=== PATIENT | male | born 1940 | race Caucasian/White ===

== ENCOUNTER 2023-08-23 13:37 | Inpatient (IN) | payer MEDICARE, SELFPAY ==
[2023-08-23] VITALS (11 sets, daily range): BP systolic 121–153; BP diastolic 66–90; BMI 31.4
--- NOTE | 2023-08-23 09:36 | ED.GENMED ---
History of Present Illness
<Nisreen Zhong PA-C - Last Filed: 08/23/23 16:46>
General
Chief Complaint: Fainting/Passed Out
Source: patient and spouse
Exam Limitations: none
Time Seen by Provider: 08/23/23 09:06
Nursing documentation reviewed up to this point in time: agreed with
Travel History
Have you had any contact with someone who has COVID-19?: No
Do you have any symptoms of coronavirus? Fever > 100 degrees, chills, cough, shortness of breath, sore throat, loss of taste or smell, muscle aches, or headache?: No
History of Present Illness
History of Present Illness:
Patient is an 82-year-old male with history of IPF, CAD, CVA presenting to the emergency department via EMS for evaluation following syncopal episode this morning. Patient's states that he was sitting at the kitchen counter after eating
breakfast when he suddenly slumped over and briefly lost consciousness. He has had a few episodes of vomiting since. Patient endorses some dizziness immediately following syncopal episode which has mainly since resolved. Patient states that he
was feeling his normal self when he woke up this morning prior to syncopal episode. He does report a productive cough over the past few weeks with yellow sputum.
Prior to syncopal episode, patient denies any preceding chest pain, shortness of breath, back pain, or headache. Patient denies any recent fever, chills. No abdominal pain.
Patient's states that he did not hit his head. He did not sustain any other injuries during syncopal episode.
Patient does take a baby aspirin. No other blood thinners.
Past History
<Nisreen Zhong PA-C - Last Filed: 08/23/23 16:46>
Past History
ED Past Medical History: CAD, Cancer (Prostate CA with radiation), GERD, HTN, Hypercholesterolemia and Other (Pulmonary fibrosis)
ED Past Surgical History: Appendectomy (Questionable patient was unsure), Cardiac (CABG, Stent) and Other (Hernia repair)
Social History
Tobacco: Non-smoker
Alcohol: Occasional
Drug: None
Personal:
Living: with family
Employment: Retired
Family History
Family History: Negative Diabetes, Hypertension, Early CAD, Asthma or Cancer
Review of Systems
<Nisreen Zhong PA-C - Last Filed: 08/23/23 16:46>
Review of Systems
Allergies reviewed?: Yes
Other source history: family
All Other Systems: ROS reviewed and negative except as documented in HPI and ROS
Phy Exam
<Nisreen Zhong PA-C - Last Filed: 08/23/23 16:46>
Physical Exam
Physical Exam:
Vitals: Patient's vital signs are stable
General: Patient is well appearing, no acute distress
Skin: Warm and dry, no rashes or lesions
Head: Normocephalic, atraumatic. No evidence of head trauma.
Eyes: Sclera nonicteric. EOMs intact. No nystagmus. Pupils equal round and reactive to light bilaterally.
Throat: Protecting airway
Neck: Normal ROM, no cervical spine tenderness, no meningismus
Cardiac: Regular rate and rhythm, no murmurs.
Pulm: Normal respiratory effort, crackles at bilateral bases.
Abdomen: No abdominal tenderness. Non-distended. No pulsatile mass.
Extremities: No evidence of cyanosis or edema. DP pulses palpable and equal bilaterally.
Neuro: AAOx3. CN II-XII intact. No focal neurologic deficits. Strength 5/5 in upper and lower extremities. Sensation fully intact. Normal finger to nose.
Psychiatric: Normal affect.
Course
<SYMONE Soler Last Filed: 08/23/23 16:46>
Orders/Labs/Results
Orders:
Orders
08/23/23 09:02
EKG [Electrocardiogram (*1)] Urgent
Reason for Study: Syncope
08/23/23 09:03
EKG- Treatment ONCE
08/23/23 09:20
CMP [Comprehensive Metabolic Panel] Urgent
Complete Blood Count/With Diff Urgent
Magnesium Urgent
Comment: ADD ON
Troponin I Urgent
08/23/23 09:44
CR Chest - 2 Views Urgent
Comment:
Reason For Exam: syncope, productive cough
08/23/23 10:29
0.9% Sodium Chloride 500 ml [Nss] 500 ml IV BOLUS
08/23/23 12:22
CARDIOLOGY CONSULT Urgent
Consulting Provider: Anthony Ott
Was physician already notified: Yes
08/23/23 12:32
Add On- LAB Urgent
Tests Added?: magnesium
08/23/23 12:42
Amiodarone [Pacerone] 200 mg PO NOW STA
08/23/23 13:07
Admit/Transfer Patient As Directed
Co-Sign Provider:
Level of Care: Inpatient admission
Assign to:: IVU
Physician / Group: Hospitalist
Diagnosis: Syncope, v-tach
Reason for Hospitalization: Syncope, v-tach
Expected length of stay greater than two midnights?: Yes
ELOS- Estimated Length of Stay in days: 3
I certify the patient meets the requirements for IP care: Yes
08/23/23 13:09
Code Status As Directed
Resuscitation Status: Full Code
08/23/23 14:44
Electrocardiogram (*1) Q6H
Reason for Study: Chest Pain
Comment: at admission and Q3H for total of 3, to be done with each troponin
Acetaminophen [Tylenol] 650 mg PO QIDPRN PRN
08/23/23 14:44
Activity As Directed
Activity Level: With Assistance
INT (Intravenous Needle Therapy) As Directed
Comment: maintain peripheral IV access
Intake/ Output As Directed
Frequency: Per unit guidelines
Pneumatic Compression Sleeves As Directed
Type: Knee high
Vital Signs As Directed
Frequency: q4h
Weight As Directed
Frequency: Daily
DX Deep Vein Thrombosis Video Routine
08/23/23 Dinner
Cholesterol Lowering
At Your Request: Full Participation
Does patient need a safe tray?: No
Cholesterol Lowering: Sodium, 2 Gram
08/23/23 15:18
Glycohemoglobin (HgbA1c) Routine
Troponin I Q3H
Comment: at admit & Q3H for 3 total including ED draws, obtain ECG with each level
08/23/23 15:20
Troponin I Urgent
08/23/23 17:44
Troponin I Q3H
Comment: at admit & Q3H for 3 total including ED draws, obtain ECG with each level
08/23/23 20:00
Carvedilol [Coreg] 3.125 mg PO BID
Cyanocobalamin [Vitamin B-12] 500 mcg PO BID
08/23/23 20:44
Electrocardiogram (*1) Q6H
Reason for Study: Chest Pain
Comment: at admission and Q3H for total of 3, to be done with each troponin
Troponin I Q3H
Comment: at admit & Q3H for 3 total including ED draws, obtain ECG with each level
08/23/23 22:00
Atorvastatin [Lipitor] 40 mg PO HS
Doxazosin Mesylate [Cardura] 1 mg PO HS
08/24/23 02:44
Electrocardiogram (*1) Q6H
Reason for Study: Chest Pain
Comment: at admission and Q3H for total of 3, to be done with each troponin
08/24/23 06:00
Basic Metabolic Panel IN AM
Cardiovascular Evaluation IN AM
Complete Blood Count/No Diff IN AM
08/24/23 08:00
Allopurinol [Zyloprim] 100 mg PO DAILY
Aspirin Low Dose EC [Aspir Low (Enteric Coated)] 81 mg PO DAILY
Cholecalciferol (Vitamin D3) [VITAMIN D3 (cholecalciferol)] 25 mcg PO DAILY
Clopidogrel Bisulfate [Plavix] 75 mg PO DAILY
FOLic ACID [Folvite] 0.4 mg PO DAILY
Pantoprazole [Protonix] 40 mg PO DAILY
docosahexaenoic acid-epa 1 cap PO DAILY
Abnormal Lab Results
08/23/23
09:20
RBC 4.07 L 10^6/uL
(4.70-6.10)
Hgb 12.8 L g/dL
(13.0-18.0)
Hct 37.7 L %
(39.0-52.0)
MCH 31.4 H pg
(27.0-31.0)
Absolute Monos (auto) 0.7 H 10^3/uL
(0.1-0.6)
Absolute Eos (auto) 0.8 H 10^3/uL
(0-0.7)
Neutrophils % 41.4 L %
(42.2-75.2)
Monocytes % 9.6 H %
(1.7-9.3)
Eosinophils % 10.1 H %
(0-6)
Creatinine 0.5 L mg/dL
(0.7-1.3)
Glucose 146 H mg/dl
(70-99)
08/23/23 09:20
08/23/23 09:20
Vital Signs
Initial and Last Documented VS:
Initial Vital Signs
Temp Pulse Resp BP Pulse Ox
97.8 F 65 18 153/87 92
08/23/23 09:03 08/23/23 09:03 08/23/23 09:03 08/23/23 09:03 08/23/23 09:03
Last Documented Vital Signs
Temp Pulse Resp BP Pulse Ox
98 F 72 20 121/68 94
08/23/23 14:52 08/23/23 14:43 08/23/23 14:52 08/23/23 14:43 08/23/23 14:52
<Miki MaciasRadha Lewis, - Last Filed: 08/23/23 12:02>
Orders/Labs/Results
Orders:
Orders
08/23/23 09:02
EKG [Electrocardiogram (*1)] Urgent
Reason for Study: Syncope
08/23/23 09:03
EKG- Treatment ONCE
08/23/23 09:20
CMP [Comprehensive Metabolic Panel] Urgent
Complete Blood Count/With Diff Urgent
Magnesium Urgent
Comment: ADD ON
Troponin I Urgent
08/23/23 09:44
CR Chest - 2 Views Urgent
Comment:
Reason For Exam: syncope, productive cough
08/23/23 10:29
0.9% Sodium Chloride 500 ml [Nss] 500 ml IV BOLUS
08/23/23 12:22
CARDIOLOGY CONSULT Urgent
Consulting Provider: Anthony Ott
Was physician already notified: Yes
08/23/23 12:32
Add On- LAB Urgent
Tests Added?: magnesium
08/23/23 12:42
Amiodarone [Pacerone] 200 mg PO NOW STA
08/23/23 13:07
Admit/Transfer Patient As Directed
Co-Sign Provider:
Level of Care: Inpatient admission
Assign to:: IVU
Physician / Group: Hospitalist
Diagnosis: Syncope, v-tach
Reason for Hospitalization: Syncope, v-tach
Expected length of stay greater than two midnights?: Yes
ELOS- Estimated Length of Stay in days: 3
I certify the patient meets the requirements for IP care: Yes
08/23/23 13:09
Code Status As Directed
Resuscitation Status: Full Code
08/23/23 14:44
Electrocardiogram (*1) Q6H
Reason for Study: Chest Pain
Comment: at admission and Q3H for total of 3, to be done with each troponin
Acetaminophen [Tylenol] 650 mg PO QIDPRN PRN
08/23/23 14:44
Activity As Directed
Activity Level: With Assistance
INT (Intravenous Needle Therapy) As Directed
Comment: maintain peripheral IV access
Intake/ Output As Directed
Frequency: Per unit guidelines
Pneumatic Compression Sleeves As Directed
Type: Knee high
Vital Signs As Directed
Frequency: q4h
Weight As Directed
Frequency: Daily
DX Deep Vein Thrombosis Video Routine
08/23/23 Dinner
Cholesterol Lowering
At Your Request: Full Participation
Does patient need a safe tray?: No
Cholesterol Lowering: Sodium, 2 Gram
08/23/23 15:18
Glycohemoglobin (HgbA1c) Routine
Troponin I Q3H
Comment: at admit & Q3H for 3 total including ED draws, obtain ECG with each level
08/23/23 15:20
Troponin I Urgent
08/23/23 17:44
Troponin I Q3H
Comment: at admit & Q3H for 3 total including ED draws, obtain ECG with each level
08/23/23 20:00
Carvedilol [Coreg] 3.125 mg PO BID
Cyanocobalamin [Vitamin B-12] 500 mcg PO BID
08/23/23 20:44
Electrocardiogram (*1) Q6H
Reason for Study: Chest Pain
Comment: at admission and Q3H for total of 3, to be done with each troponin
Troponin I Q3H
Comment: at admit & Q3H for 3 total including ED draws, obtain ECG with each level
08/23/23 22:00
Atorvastatin [Lipitor] 40 mg PO HS
Doxazosin Mesylate [Cardura] 1 mg PO HS
08/24/23 02:44
Electrocardiogram (*1) Q6H
Reason for Study: Chest Pain
Comment: at admission and Q3H for total of 3, to be done with each troponin
08/24/23 06:00
Basic Metabolic Panel IN AM
Cardiovascular Evaluation IN AM
Complete Blood Count/No Diff IN AM
08/24/23 08:00
Allopurinol [Zyloprim] 100 mg PO DAILY
Aspirin Low Dose EC [Aspir Low (Enteric Coated)] 81 mg PO DAILY
Cholecalciferol (Vitamin D3) [VITAMIN D3 (cholecalciferol)] 25 mcg PO DAILY
Clopidogrel Bisulfate [Plavix] 75 mg PO DAILY
FOLic ACID [Folvite] 0.4 mg PO DAILY
Pantoprazole [Protonix] 40 mg PO DAILY
docosahexaenoic acid-epa 1 cap PO DAILY
Abnormal Lab Results
08/23/23
09:20
RBC 4.07 L 10^6/uL
(4.70-6.10)
Hgb 12.8 L g/dL
(13.0-18.0)
Hct 37.7 L %
(39.0-52.0)
MCH 31.4 H pg
(27.0-31.0)
Absolute Monos (auto) 0.7 H 10^3/uL
(0.1-0.6)
Absolute Eos (auto) 0.8 H 10^3/uL
(0-0.7)
Neutrophils % 41.4 L %
(42.2-75.2)
Monocytes % 9.6 H %
(1.7-9.3)
Eosinophils % 10.1 H %
(0-6)
Creatinine 0.5 L mg/dL
(0.7-1.3)
Glucose 146 H mg/dl
(70-99)
08/23/23 09:20
08/23/23 09:20
Vital Signs
Initial and Last Documented VS:
Initial Vital Signs
Temp Pulse Resp BP Pulse Ox
97.8 F 65 18 153/87 92
08/23/23 09:03 08/23/23 09:03 08/23/23 09:03 08/23/23 09:03 08/23/23 09:03
Last Documented Vital Signs
Temp Pulse Resp BP Pulse Ox
98 F 72 20 121/68 94
08/23/23 14:52 08/23/23 14:43 08/23/23 14:52 08/23/23 14:43 08/23/23 14:52
<Nisreen Zhong PA-C - Last Filed: 08/23/23 16:46>
MDM/Problems Addressed
Differential Diagnosis Includes:
Not limited to: Syncope, vasovagal syncope, dehydration, cardiac arrhythmia, doubt CVA or ACS
MDM/Problems Addressed:
Patient is an 82-year-old male presenting via EMS following syncopal episode today while sitting at kitchen counter. No prodromal symptoms or syncope. Few episodes of vomiting and route to the hospital. Patient mainly asymptomatic now. Vitals
are stable. EKG shows frequent PVCs, but remains relatively unchanged from prior EKGs. Exam as above. Will check labs, troponin. Patient reports productive cough and given borderline low O2 saturation�will check chest x-ray. Will interrogate
pacemaker. Will closely monitor and reassess.
Initial labs noted. No clinically significant abnormalities. Initial troponin is negative. Chest x-ray shows no evidence of acute disease.
[employer] unit support representative called during interrogation�2 episodes of V. tach were picked up around 815 AM-this was at time of syncope. Patient has not had any repeat ventricular arrhythmias since arrival to ER. He has been on monitor. Will add on
magnesium level. Cardiology consulted. Dr. Ott at bedside to evaluate patient. Will admit to hospitalist for further evaluation/management.
Spoke to Dr. Ott. Recommends 1 PO dose of 200mg amiodarone given IVF. NPO for cath/echo tomorrow. Discussed with hospitalist.
Chronic conditions affecting care:
History of bradycardia with pacemaker
Acute Exacerbation and/or Progression of Chronic Illness:
Syncopal episode following Vtach
<Nisreen Zhong PA-C - Last Filed: 08/23/23 16:46>
*Radiology
Radiology exam reviewed: preliminary read by ED provider and radiology read reviewed
*Pulse Oximetry
Patient hypoxic: no
*EKG
Interpreted by ED Provider?: Yes
EKG Intrepretation Date: 08/23/23
Interpretation: normal
Comparison EKG: changes noted
Heart Rate: 72
Rate: normal
Rhythm: sinus and PVC's
Interval: first degree heart block
Ischemia: no ischemia
*Line Installer Repairer Interpretation
Rate: normal
Interpretation: normal
Heart Rate: 64
Rhythm: sinus and PVC's
*Critical Care Note
Total Time (30-74mins, 75-104mins- exclusive of procedures): Not Applicable
Data Reviewed
Prescriptions/Medications Considered But Not Given:
Amiodarone drip but given IPF will stick to one PO dose at this time.
<Nisreen Zhong PA-C - Last Filed: 08/23/23 16:46>
Patient Management
Discussion with other providers: Hospitalist and Psychological Examiner (Dr. Ott)
ED Attending Note
<Nisreen Zhong PA-C - Last Filed: 08/23/23 16:46>
-
Portions of this chart may have been created with voice recognition software.� Occasional wrong word or��sound alike� substitutions may have occurred due to the inherent limitations of voice recognition software.
<DO Jeanne Mckeon Last Filed: 08/23/23 12:02>
ED Attending Note
Patient seen and examined by attending physician: Yes
I performed the substantive portion of visit, reviewed & personally made and approve the management plan that is documented in note by myself or NICOLETTE.: Yes
ED Attending Note:
I agree with Teresa's note
Patient had a syncopal episode at home. Patient's was totally at his baseline activity and health this morning. He ate breakfast. He was sitting at the counter talking to his when he suddenly had a syncopal episode. He did not have any
prodromal symptoms. When he first began to come around states he seemed a little confused. He is at his baseline now. Did not have any prodromal chest pain, palpitations. Patient does have a pacemaker which was placed for bradycardia. It
is not a defibrillator.
General: Awake, Alert, Oriented X3. No acute distress.
Vitals: unremarkable
Head: Atraumatic
Eyes: Pupils equal, EOMI
Throat: Airway intact, no exudates
Lungs: Clear and equal b/l
Heart: Regular rate, no murmurs
Abd: Soft, Nontender, No pulsatile mass
Neuro: Nonfocal
Extremities: pulses equal b/l, no edema
Pacemaker interrogation reveals pt had episode of ventricular tachycardia. Pt will require admission and cardiology consult....? start amiodarone.
Discharge Plan
Departure
Patient Disposition: Admit
Date of Disposition: 08/23/23
Time of Disposition: 12:09
Admit to: IVU
Presentation/result/management discussed w/ accepting MD/DO: Hospitalist
Discharge Problem:
Syncope, Ventricular tachyarrhythmia
Interventions
Interventions:
*Risk Screen - Suicide Last Done: 08/23/23 09:03
*General Assessment Last Done: 08/23/23 09:17
*Neglect/Abuse Screening Last Done: 08/23/23 09:03
ED- Fall Risk Assessment Last Done: 08/23/23 09:17
*ED COVID-19 Vaccine History Last Done: 08/23/23 09:03
*Nursing Disposition Last Done: 08/23/23 14:43
ED- Cardiac Assessment Last Done: 08/23/23 09:17
ED- Neurological Assessment Last Done: 08/23/23 09:17
Discharge Date and Time
Discharge Date/Time: 08/23/23 14:20
[2023-08-23 09:47] LABS: ALT (SGPT) 13 U/L (0-50); AST (SGOT) 26 U/L (17-59); Albumin 3.8 g/dl (3.5-5.0); Alkaline Phosphatase 98 U/L (38-126); Blood Urea Nitrogen 17 mg/dl (9-20); Calcium 10.1 mg/dl (8.4-10.2); Carbon Dioxide 25 mmol/L (22-30); Chloride 103 mmol/L (98-107); Estimated Creatinine Clearance 89 ml/min; Glucose 146 mg/dl (70-99); Potassium 3.7 mmol/L (3.5-5.1); Sodium 139 mmol/L (135-145); Total Bilirubin 0.7 mg/dl (0.2-1.3); Total Protein 6.9 g/dl (6.3-8.2); eGFR > 60.00
[2023-08-23 09:48] LABS: % Eosinophils 10.1 % (0-6); % Immature Granulocytes 0.1 % (0-0.5); % Lymphocytes 37.8 % (20.5-51.1); % Monocytes 9.6 % (1.7-9.3); % Neutrophils 41.4 % (42.2-75.2); Absolute Basophils 0.1 10^3/uL (0-0.2); Absolute Eosinophils 0.8 10^3/uL (0-0.7); Absolute Lymphocytes 2.9 10^3/uL (1.2-3.4); Absolute Monocytes 0.7 10^3/uL (0.1-0.6); Absolute Neutrophils 3.2 10^3/uL (1.4-6.5); Hematocrit 37.7 % (39.0-52.0); Hemoglobin 12.8 g/dL (13.0-18.0); Mean Corpuscular Hgb 31.4 pg (27.0-31.0); Mean Corpuscular Volume 92.6 fL (80.0-94.0); Mean Platelet Volume 10.2 fL (7.4-10.4); Nucleated Red Blood Cells % 0 % (-); Platelet Count 207 10^3/uL (130-400); Red Blood Cell Count 4.07 10^6/uL (4.70-6.10); Red Cell Dist. Width 12.5 % (11.5-14.5); White Blood Cell Count 7.7 10^3/uL (4.8-10.8)
[2023-08-23 09:56] LABS: Troponin I < 0.012 ng/ml
[2023-08-23] MEDS: NSS 500 IV (11:22)
[2023-08-23] MEDS: PACERONE 200 MG PO (12:53)
--- NOTE | 2023-08-23 12:57 | HPS.HSE ---
Family Physician
-
Family Physician: Tito Villatoro
Chief Complaint
-
Loss of consiousness
History of Present Illness
82-year-old man with history of:
IPF,
CAD,
CVA
comes in after a syncopal episode this morning. He was sitting at the kitchen counter after eating breakfast then suddenly slumped over and briefly lost consciousness. Has had a few episodes of vomiting since. He had some dizziness immediately
following syncopal episode which has now resolved. He reports a productive cough over the past few weeks with yellow sputum. Prior to syncopal episode, there was no preceding chest pain, shortness of breath, back pain, or headache, any recent
fever, chills, abdominal pain. On baby aspirin. No other blood thinners. Comfortable during the interview and exam.
Medical History
Past Medical History
Past Medical History: Reports Other
Additional Past Medical History:
CAD,
Cancer (Prostate CA with radiation),
GERD,
essential HTN,
Hypercholesterolemia
Pulmonary fibrosis
Appendectomy (Questionable patient was unsure)
CABG, Stent
Hernia repair
Past Surgical History: Reports Other
Additional Past Surgical History:
See above
Social History
Tobacco: Non-smoker
Alcohol: Occasional
Drug: None
Personal:
Living: With Family
Family History
Family History: Not pertinent
Allergies / Home Medications
Allergies reflects when Allergies were last updated in [facility].
Home Medications with original date entered in [facility]
Allergy/Medication List:
Allergies
Allergy/AdvReac Type Severity Reaction Status Date / Time
No Known Allergies Allergy Verified 08/23/23 09:09
Home Medications
garlic 1 cap PO DAILY Supplement 07/23/11
soy isoflavone 100 mg capsule (Soy Isoflavones) 100 mg PO DAILY Supplement 07/23/11
doxazosin 1 mg tablet 1 mg PO HS Blood pressure ##0 12/07/18
esomeprazole magnesium 20 mg capsule,delayed release (Nexium) 20 mg PO DAILY Gastrointestinal issue 12/07/18
psyllium husk (aspartame) 3.4 gram oral powder packet (Metamucil Fiber Singles) 1 tsp PO DAILY@1200 Gastrointestinal issue ##0 12/07/18
acetaminophen 325 mg tablet 650 mg PO QIDPRN PRN mild pain 05/02/20
allopurinol 100 mg tablet 100 mg PO DAILY Gout 05/02/20
atorvastatin 40 mg tablet 40 mg PO HS High cholesterol 05/02/20
cholecalciferol (vitamin D3) 25 mcg (1,000 unit) tablet 1,000 units PO DAILY Supplement 05/02/20
cyanocobalamin (vitamin B-12) 1,000 mcg tablet 1,000 mcg PO BID Supplement 05/02/20
docosahexaenoic acid (dha)-epa 120 mg-180 mg capsule 1 cap PO DAILY Supplement 05/02/20
folic acid 400 mcg tablet 0.4 mg PO DAILY Supplement 05/02/20
aspirin 81 mg tablet,delayed release 81 mg PO DAILY Blood clot prevention/tx #90 tabs 05/08/20
carvedilol 3.125 mg tablet (Coreg) 3.125 mg PO BID #180 tabs 05/08/20
clopidogrel 75 mg tablet 75 mg PO DAILY #21 tabs 05/08/20
Review of Systems
-
History Source: Patient
A 12 point ROS was completed and negative except as noted: Yes
Physical Exam
Vital Signs
Vital Signs
Temp Pulse Resp BP Pulse Ox
97.8 F 76 18 129/73 92
08/23/23 09:03 08/23/23 12:53 08/23/23 11:45 08/23/23 12:53 08/23/23 11:45
Physical Exam
General: Well Developed, Well Nourished, No Apparent Distress, Comfortable, Conversant and Obese
HEENT: NormoCephalic, Moist mucous membranes, Atraumatic, Nose Appears Normal and Ears Appear Normal
Respiratory: Clear
Cardiac: S1/S2 and Irregular Rhythm
GI: Soft, Non Tender and Non Distended
Musculoskeletal: No Clubbing, No Cyanosis and No Edema
Skin: Warm and Dry; No Rash or Jaundice
Neuro: Awake, Alert, Oriented and AO x 3
Psych: Calm
Laboratory Results
-
08/23/23 09:20
08/23/23 09:20
Laboratory Results
Total Bilirubin 0.7 mg/dl (0.2-1.3) 08/23/23 09:20
AST 26 U/L (17-59) 08/23/23 09:20
ALT 13 U/L (0-50) 08/23/23 09:20
Alkaline Phosphatase 98 U/L (38-126) 08/23/23 09:20
Troponin I < 0.012 ng/ml 08/23/23 09:20
Data Reviewed
-
Lab Data: Labs Reviewed by me
Impression/Plan
-
IMPRESSION:
82 man with h/o pacemaker, has episode of lost consciousness. Pacer was interogated and v-tach was found.
PLAN:
1. V-tach. Cardiology consulted.
Amiodarone (ordered by cardiology)
Plan is for a cath, likely tomorrow.
Will make NPO after MN
otherwise doing well
Will follow on telemetry until procedure.
Continue current home meds until NPO
VCD for DVTp
Full code
[2023-08-23 13:12] LABS: Magnesium 1.9 mg/dl (1.6-2.3)
--- NOTE | 2023-08-23 14:41 | EDRN ---
Patient taken to room 2242 on monitor on stretcher.
[2023-08-23 16:08] LABS: Troponin I 0.259 ng/ml
--- NOTE | 2023-08-23 16:16 | PTCARENOTE ---
Pt trop 0.259, Dr Henson and Dr Cramer aware. Pt denies chest pain. Heparin drip ordered. Will begin after baseline PTT obtained and resulted.
[2023-08-23 16:42] LABS: Hematocrit 39.8 % (39.0-52.0); Hemoglobin 13.5 g/dL (13.0-18.0); Mean Corp Hgb Conc. 33.9 g/dL (33.0-37.0); Mean Corpuscular Hgb 31.3 pg (27.0-31.0); Mean Corpuscular Volume 92.1 fL (80.0-94.0); Mean Platelet Volume 9.8 fL (7.4-10.4); Platelet Count 222 10^3/uL (130-400); Red Blood Cell Count 4.32 10^6/uL (4.70-6.10); Red Cell Dist. Width 12.4 % (11.5-14.5); White Blood Cell Count 7.6 10^3/uL (4.8-10.8)
[2023-08-23 16:56] LABS: APTT 35.9 Sec (23.4-35.0)
[2023-08-23] MEDS: HEPARIN 25000 UNITS/250 ML IV (17:26)
--- NOTE | 2023-08-23 19:59 | CON.CAR ---
Consultation
Consultation Request
Date/Time Consultation Requested: 08/23/2023 1208
Date/Time Consultation Performed: 08/23/2023 1230
Requesting Provider: Nisreen Zhong PA-C
Performing Provider: Anthony Ott DO
Reason for Consultation: VT
Medical History
-
Chief Complaint: Syncope
History of Present Illness:
Patient is a pleasant 82-year-old male with a past medical history significant for hypertension, hyperlipidemia, CAD with remote history of CABG and PCTA greater than 10 years ago,PVCs, mild IPF managed at [facility], sick sinus
syndrome status post dual-chamber Med[employer]onic pacemaker 2020, dilated aortic root, history of carotid endarterectomy who presents after episode of syncope at home. Patient reports that he was sitting at the table when he slumped over. He reports
that he was woken up by his and felt mildly confused with some nausea which quickly subsided. He did report 1-2 episodes of emesis following the episode but no other emesis in the emergency department or after. No current nausea, chest pain,
shortness of breath, palpitations, lightheadedness, dizziness, near-syncope, abdominal pain, fever, chills, weakness. Following this episode, patient proceeded to the emergency department. Over the past few weeks, patient is noted productive cough
which is improved. EKG in emergency department demonstrated a paced V sensed with PVCs. Device interrogation demonstrated an episode of sustained ventricular tachycardia/ventricular fibrillation (fast polymorphic ventricular rhythm) with
spontaneous termination. No other prior episodes of VT noted on device by [employer]. In evaluation of patient in the emergency department and afterwards, patient denies any chest pain, shortness of breath, palpitations, lightheadedness,
dizziness, PND, orthopnea, nausea, vomiting, abdominal pain, edema, or weakness.
Past Medical History
Past Medical History: Other (Noted in HPI)
Past Surgical History: Other (Noted in HPI; orthopedic surgeries, CABG 1984, PCI with stent 2011, right CEA 04/2020, pacemaker 04/2020)
Social History
Tobacco: Non-Smoker
Alcohol: None
Drug: None
Personal:
Living: With Family
Employment: Retired
Family History
Family History: CAD
Allergies / Home Medications
Allergy/AdvReac Type Severity Reaction Status Date / Time
No Known Allergies Allergy Verified 08/23/23 09:09
�Medication �Instructions �Recorded �Confirmed �Type
soy isoflavone 100 mg capsule (Soy 100 mg PO DAILY Supplement 07/23/11 08/23/23 History
Isoflavones)
esomeprazole magnesium 20 mg 20 mg PO Q48H@0800 12/07/18 08/23/23 History
capsule,delayed release (Nexium) Gastrointestinal issue
allopurinol 100 mg tablet 100 mg PO DAILY Gout 05/02/20 08/23/23 History
atorvastatin 40 mg tablet 40 mg PO QPM High cholesterol 05/02/20 08/23/23 History
aspirin 81 mg tablet,delayed 81 mg PO DAILY Blood clot 05/08/20 08/23/23 Rx
release prevention/tx #90 tabs
carvedilol 3.125 mg tablet (Coreg) 3.125 mg PO BID #180 tabs 05/08/20 08/23/23 Rx
Lung Tonic Supplement 200 mg PO DAILY 08/23/23 08/23/23 History
acetaminophen 650 mg 650 mg PO HSPRN PRN mild pain 08/23/23 08/23/23 History
tablet,extended release (Tylenol 8
Hour)
chlorpheniramine maleate 4 mg 4 mg PO HSPRN PRN phlegm 08/23/23 08/23/23 History
tablet
cholecalciferol (vitamin D3) 25 25 mcg PO DAILY 08/23/23 08/23/23 History
mcg (1,000 unit) tablet
cyanocobalamin (vitamin B-12) 500 500 mcg PO BID 08/23/23 08/23/23 History
mcg tablet
doxazosin 1 mg tablet 1 mg PO QPM 08/23/23 08/23/23 History
esomeprazole magnesium 20 mg 40 mg PO Q48H@0800 08/23/23 08/23/23 History
capsule,delayed release (Nexium)
folic acid 400 mcg tablet 0.4 mg PO DAILY 08/23/23 08/23/23 History
garlic 500 mg capsule 500 mg PO DAILY 08/23/23 08/23/23 History
omega 4-zot-dmm-fish oil 1,000 mg 1 cap PO DAILY 08/23/23 08/23/23 History
(120 mg-180 mg) capsule (Fish Oil)
psyllium 1 tsp PO DAILY@1100 08/23/23 08/23/23 History
Review of Systems
-
History Source: Patient
Constitutional: No Symptoms
EENT: No Symptoms
Respiratory: Cough (Productive)
Cardiac: Syncope (No prodrome)
Abdomen/GI: Nausea and Vomiting
: No Symptoms
Musculoskeletal: No Symptoms
Skin: No Symptoms
Neurological: No Symptoms
Endocrine: No Symptoms
Hematologic/Lymphatic: No Symptoms
Physical Exam
Vital Signs
Temp Pulse Resp BP Pulse Ox
98 F 66 20 149/86 92
08/23/23 14:52 08/23/23 18:45 08/23/23 14:52 08/23/23 14:54 08/23/23 17:06
Lab Results
08/23/23 16:35
08/23/23 09:20
Troponin I Cancelled 08/23/23 20:44
Physical Exam
General: Well Nourished, No Apparent Distress and Comfortable
HEENT: Normocephalic, Anicteric and Moist Mucous Membranes
Respiratory: Clear, Non Labored Respirations and Other (No wheeze, rhonchi, rales)
Cardiac: S1/S2, Regular Rhythm and Other (No murmur, rub, gallop; ectopy noted; left CIED site well-healed)
Breast: Deferred by me
GI: Soft, Non Tender, Non Distended and Normal Bowel Sounds
Rectal: Deferred by Provider
Musculoskeletal: No Clubbing, No Cyanosis and No Edema
Skin: Warm and Dry
Neuro: AO x 3
Psych: Calm
Impression / Plan
-
Primary hardboard supervisor: Pedro Merchant MD
.
Impression:
Syncope
Sustained VT/VF on device interrogation
Sick sinus syndrome status post pacemaker 04/2020
Hypertension
Mixed hyperlipidemia
Dilated aortic root
CAD status post CABG 1984, PCI 2011
Right CEA 2020
PVCs, asymptomatic
Chronic pulmonary fibrosis managed by [facility], mild per patient
TTE 05/15/2022: Normal LV size and function, EF 53%, mild LVH, G1 DD, normal RV size, mildly reduced RV function, severely dilated LA, mild MR, mild AR, mild TR PASP 30 mmHg, dilated aortic root 4.0 cm at SOV, 3.8 at STJ, 4.0 at ascending aorta, no
prior change from 04/2020 per report
Plan:
� N.p.o. after midnight pending left heart catheterization for ischemic evaluation; initial troponin negative, repeat troponin 0.2, starting heparin drip given history of significant CAD and new/presumed VT VF; asymptomatic currently, no chest pain
� Trend troponin to peak
� 2D echocardiogram
� Formal device interrogation and evaluation of VT VF event; require device upgrade
� Will start patient on low-dose amiodarone 200 mg twice daily can increase as tolerated. Tentative use of amiodarone in setting of history of chronic pulmonary fibrosis, monitor closely while inpatient
� Continue beta-turner, aspirin, statin
Data Reviewed
-
EKG: Tracing Personally Visualized and interpreted
Radiology: Report Reviewed by me
Medical Tests (Nuc Med, Echo etc): Report Reviewed by me
Labs: Labs Reviewed by me
Old Records: Reviewed
[2023-08-23] MEDS: VITAMIN B-12 500 MCG PO (20:26)
[2023-08-23] MEDS: COREG 3.125 MG PO (20:26)
--- NOTE | 2023-08-23 20:38 | PTCARENOTE ---
Assumed care at 1900. Patient with intermittent nausea, gas, dry heaving, belching, sips of gina gustavo given. Assisted to the bathroom, small brown stool. Encouraged patient to maybe sit in the chair to maybe help alleviate his symptoms. Appetite
remains poor, pills given with a sip of water. A-paced, PVC's, underlying first degree HB, BBB. NPO past midnight for cath tomorrow
[2023-08-23] MEDS: CARDURA 1 MG PO (23:22)
[2023-08-23] MEDS: LIPITOR 40 MG PO (23:22)
[2023-08-23 23:40] LABS: APTT 56.1 Sec (23.4-35.0)
[2023-08-23 23:55] LABS: Troponin I 0.361 ng/ml
[2023-08-24] VITALS (13 sets, daily range): BP systolic 102–147; BP diastolic 59–114; BMI 31.2
[2023-08-24 05:51] LABS: Hematocrit 35.2 % (39.0-52.0); Hemoglobin 12.1 g/dL (13.0-18.0); Mean Corp Hgb Conc. 34.4 g/dL (33.0-37.0); Mean Corpuscular Hgb 30.9 pg (27.0-31.0); Mean Corpuscular Volume 89.8 fL (80.0-94.0); Mean Platelet Volume 9.7 fL (7.4-10.4); Platelet Count 222 10^3/uL (130-400); Red Blood Cell Count 3.92 10^6/uL (4.70-6.10); Red Cell Dist. Width 12.6 % (11.5-14.5); White Blood Cell Count 7.4 10^3/uL (4.8-10.8)
[2023-08-24 06:08] LABS: APTT 85.8 Sec (23.4-35.0)
[2023-08-24 06:17] LABS: Troponin I 0.426 ng/ml
[2023-08-24 06:48] LABS: Blood Urea Nitrogen 15 mg/dl (9-20); Calcium 9.6 mg/dl (8.4-10.2); Carbon Dioxide 25 mmol/L (22-30); Chloride 106 mmol/L (98-107); Estimated Creatinine Clearance 89 ml/min; Glucose 96 mg/dl (70-99); HDL Cholesterol 35 mg/dl; LDL Cholesterol, Calculated 36 mg/dl; Potassium 3.8 mmol/L (3.5-5.1); Sodium 137 mmol/L (135-145); Total Cholesterol 85 mg/dl (50-199); Triglyceride 72 mg/dl (10-149); Very Low Density Lipoprotein 14 mg/dl (0-30); eGFR > 60.00
--- NOTE | 2023-08-24 08:30 | W.PN.HOSP.TC ---
Today's Communication/Plan
-
see A/P
Assessment / Plan
Assessment / Plan
82-year-old man with history of IPF, CAD, CVA; p/w syncope. He was sitting at the kitchen counter after eating breakfast then suddenly slumped over and briefly lost consciousness. He has had a few episodes of vomiting since. He had some dizziness
immediately following the syncopal episode which has now resolved. He reported a productive cough over the past few weeks with yellow sputum.
Prior to syncopal episode, there was no preceding chest pain, shortness of breath, back pain, or headache, any recent fever, chills, abdominal pain.
He is on baby aspirin. No other blood thinners. Comfortable during the interview and exam.
A/P:
# Cardiogenic syncope due to sustained VT/VF on device interrogation
# Sick sinus syndrome status post pacemaker 04/2020
s/p amiodarone
Started heparin drip
Cont ROOM WORKER Coreg, ASA, Lipitor
Check echo
Plan is for cardiac cath
Cardiology on board
Other medical problems:
# Hypertension
# hyperlipidemia, cont ROOM WORKER Lipitor
# CAD status post CABG 1984, PCI 2011
# Right CEA 2020
# Chronic pulmonary fibrosis managed by [facility], mild per patient
stable, on RA
DVT ppx: heparin drip
Full code
Anticipated Discharge: > 48 hours
Subjective/Interval History
-
Date of Service: August 24, 2023
Objective Data
-
Labs:
Laboratory Results
08/23/23 08/24/23 08/24/23
23:18 05:40 12:00
WBC 7.4
Hgb 12.1 L
Hct 35.2 L
Plt Count 222
APTT 56.1 H 85.8 H Pending
Sodium 137
Potassium 3.8
Chloride 106
Carbon Dioxide 25
BUN 15
Creatinine 0.4 L
Glucose 96
Calcium 9.6
Vital Signs:
Vital Signs
Temp Pulse Resp BP Pulse Ox
36.4 C 64 16 131/59 95
08/24/23 06:43 08/24/23 06:43 08/24/23 06:43 08/24/23 02:13 08/24/23 06:43
I&O
08/23/23 08/24/23 08/25/23
06:59 06:59 06:59
Intake Total 240 / 240
Balance 240 / 240
Review of Systems
-
All other systems: Reviewed and negative
Physical Exam
-
General: Well Developed, Well Nourished, No Apparent Distress, Comfortable and Conversant; Negative Respiratory Distress
HEENT: Normocephalic, Atraumatic, Nose Appears Normal and Ears Appear Normal; Negative Oxygen
Respiratory: Clear to Auscultation and Non Labored Respirations; Negative Accessory Resp Muscle Use
Cardiac: Regular Rhythm and S1/S2
GI: Soft, Nontender, Nondistended and Normal Bowel Sounds
Skin: Warm and Dry
Neuro: Awake, Alert, Oriented and AO x 3
Psych: Calm and Intact Judgement/Insight
Data Reviewed
-
Labs: Labs Reviewed by me
[2023-08-24] MEDS: COREG 3.125 MG PO ×2 (09:27→19:57)
[2023-08-24] MEDS: ASPIR LOW (ENTERIC COATED) 81 MG PO (09:27)
[2023-08-24] MEDS: PROTONIX 40 MG PO (09:27)
[2023-08-24] MEDS: ZYLOPRIM 100 MG PO (09:27)
[2023-08-24] MEDS: VITAMIN B-12 PO ×3 (09:28→22:49)
[2023-08-24] MEDS: FOLVITE PO (09:28)
[2023-08-24] MEDS: VITAMIN D3 (cholecalciferol) PO (09:28)
[2023-08-24 09:52] LABS: Glycohemoglobin (HgbA1c) 5.6 % (4.0-5.6)
--- NOTE | 2023-08-24 11:35 | CM ---
Reviewed chart. Met with and Mrs. Jo to review discharge plans. He states prior to admission he resides with his spouse in a two stor y home with one step to enter. He states he has a first floor set-up. He states prior to admission he was
independent with ambulation in the home and uses a single point cane in the community. He states he has a single point cane and a walker at home. He states he has never needed VNA Services. He states he has a prescription plan with [facility] and
uses [facility]. Medical work-up in progress. The discharge plan is to return home with his spouse when medically stable.
--- NOTE | 2023-08-24 11:35 | PTCARENOTE ---
received patient this am,monitor shows Apaced, VSS. IV heparin drip @ 1200 units/hr without difficulties. patient remains NPO for heart cath today.
[2023-08-24 12:37] LABS: Troponin I 0.277 ng/ml
[2023-08-24 14:49] LABS: ACT-LR - POC 297 Seconds (116-155)
[2023-08-24 15:01] LABS: ACT-LR - POC 294 Seconds (116-155)
[2023-08-24 15:31] LABS: ACT-LR - POC 327 Seconds (116-155)
--- NOTE | 2023-08-24 16:52 | ITS.CL.CATH ---
Financial Reserve Clerk - Catheterization
Cardiac Catheterization
Procedure Report:
LEFT HEART CATHETERIZATION AND CORONARY INTERVENTION
Date of Procedure: August 24, 2023
Referring: Dr. Anthony Ott
PROCEDURES:
1. Coronary angiography
2. Selective saphenous vein graft and MARILIA angiography. Note: Left radial access was required due to severe tortuosity of the left subclavian artery and inability to cannulate the MARILIA origin from right common femoral approach
INDICATION: This is an 82-year-old gentleman with a remote history of coronary artery bypass grafting, PVCs, mild IPF and sick sinus syndrome requiring dual-chamber pacemaker placement in 2020. He was admitted to [facility] after a
syncopal episode. He had been sitting at the table when he slumped over. He spontaneously awoke and his reported that he was mildly nauseated and mildly confused. His pacemaker was interrogated with an episode of sustained ventricular
tachycardia/ventricular fibrillation. His troponin is noted to be mildly elevated peaking at 0.426 ng/mL for which he is now referred for coronary angiography
ACCESS: Arterial access was obtained in the right common femoral artery using ultrasound guidance. There was severe tortuosity in the iliofemoral vessels with significant resistance encountered when passing balloon and stent catheters through the
tortuous segments. Would strongly consider placement of a long sheath if femoral access is required for future coronary interventions. Additionally, we had to obtain left radial access to cannulate the left subclavian artery due to severe
tortuosity and inability to pass catheters into the subclavian artery from the right femoral approach.
HEMODYNAMICS : (mmHg)
AO (s/d) : 162/75, 108
CORONARY ANGIOGRAPHY
Dominance: Right
LEFT MAIN: Heavily calcified
LEFT ANTERIOR DESCENDIN% occluded proximally. The MARILIA fills via a patent MARILIA graft. The [place] LAD has moderate diffuse atherosclerotic disease but no focal culprit stenosis
CIRCUMFLEX: The circumflex gives rise to a large obtuse marginal branch with a 95% stenosis in its midportion. The mid circumflex beyond the large OM branch becomes 100% occluded with the distal circumflex/PLB noted to fill via the sequential
portion of the SVG-PDA-PLB (Left)
RIGHT CORONARY ARTERY: Known to be 100% occluded. The distal vessel fills via a patent sequential SVG-PDA-PLB
GRAFT ANGIOGRAPHY
1. VSL-FMP-nxds PLB : Cannulated with a MPA1 catheter. There is a stent in the proximal portion of the SVG-PDA-PLB. There is 30% proximal in-stent restenosis. The distal edge of the stent has a 60% stenotic segment at the distal edge of the
stent. There are sequential stenosis in the mid portion of the SVG 60% and 70%. The SVG is sequentially anastomosed to the PDA and left sided posterolateral branch. There is antegrade and retrograde filling of the PDA and PLB.
2. SVG-diagonal vs OM: Known from 2012 angiogram to be totally occluded proximally
3. CHA-LAD: Needed left radial access to cannulate. The left subclavian artery was very tortuous. I could not cannulate the CHA origin from the right femoral approach with MARILIA, JR4, or VTK catheters. I attempted table J-wire, Glidewire, and
Bentson wire. Eventually, left radial access was utilized to selectively cannulate the MARILIA origin. CHA-LAD is widely patent. There is antegrade filling of the LAD beyond the CHA anastomosis. The [place] LAD has diffuse irregularities in the
mid to distal vessel but no focal culprit stenosis.
LEFT VENTRICULOGRAPHY: Not done
ANGIOPLASTY PROCEDURE DETAIL: Upon review of the diagnostic catheterization films the decision was made to proceed with percutaneous revascularization of circumflex/OM and probable staged intervention of the sequential SVG. Intravenous heparin was
administered and the ACT was monitored throughout the procedure. A 180 mg loading dose of ticagrelor was given at the beginning of the interventional procedure. The origin of the left main was cannulated with a 6 Panamanian XB 3.5 guiding catheter and
a BMW guidewire across the stenosis in the obtuse marginal branch. Balloon predilation was performed using a 2.5 mm noncompliant balloon. We then attempted to cross the lesion with a 3.5 x 34 mm Javon stent which unfortunately would not cross. The
stent was removed. A GuideLiner was then advanced to the proximal circumflex and the stent still would not cross with poor support from the guide catheter. Redilation was performed with the 2.5 mm NC balloon and the GuideLiner was advanced
distally while the balloon was inflated. The NC balloon was deflated and the 3.5 mm Javon stent could now be delivered distally. The GuideLiner was retracted and the stent was implanted at nominal pressures then post dilated with a 3.5 mm NC
balloon to high pressures throughout the stented segment with a nice angiographic result.
RADIATION SUMMARY: Fluoro Time (min): 37.3, Dose (mGy): 1180, DAP (Gy.cm2) : 100.3
Closure Device: 6 Panamanian Angio-Seal RFA and 6 Panamanian TR band left radial artery
CONCLUSION
1. Successful stenting of obtuse marginal branch with a 3.5 x 34 mm Javon stent
2. Residual coronary disease and sequential XMI-FVO-flrs-sided PLB
3. Severe [place] vessel coronary artery disease with 100% occlusion of the LAD and RCA
RECOMMENDATIONS
1. Continue aspirin and clopidogrel
2. Will need sequential SVG coronary intervention in the next day or 2 depending on renal function
3. May need to consider long sheath or left radial approach for cannulation of the MARILIA for future procedures
Copy to: Dr. Pedro Merchant
--- NOTE | 2023-08-24 18:14 | PTCARENOTE ---
patient has had 2 bouts of liquid vomiting, Dr. Sun and Dr. Vicente aware, ordered Zofran.
--- NOTE | 2023-08-24 18:40 | PTCARENOTE ---
patient up OOB with assist to BR, voided and had small BM. patient presently sitting in chair, drinking gingerale. right groin intact, left radial still has R band on.
[2023-08-24] MEDS: LIPITOR 40 MG PO (19:59)
[2023-08-24] MEDS: COMPAZINE 5 MG IV (20:03)
[2023-08-24 20:23] LABS: Glucose - Point of Care 159 mg/dl (70-99)
--- NOTE | 2023-08-24 21:05 | PTCARENOTE ---
@2020 rang and stated that he felt 'short of breath: not like he cant take deep breaths just short of breath and lightheaded', BP 145/89 HR 70s. Apaced. SPO2 91% on RA. AccuCheck 159. lungs still sound clear no adventitious sounds. Placed on 2L NC.
for comfort- SPO2 juliann to 96%. helped pt get seated higher in the bed- at this time he reports he feels 'slightly better'. then when he first called. Call gale within reach.
[2023-08-24] MEDS: CARDURA PO (22:48)
[2023-08-25 03:48] VITALS: BP 133/58
--- NOTE | 2023-08-25 04:16 | PTCARENOTE ---
pt feels better after waking this morning. states the dizziness/lightheadedness has subsided.
[2023-08-25 04:30] LABS: Blood Urea Nitrogen 15 mg/dl (9-20); Calcium 9.4 mg/dl (8.4-10.2); Carbon Dioxide 27 mmol/L (22-30); Chloride 104 mmol/L (98-107); Estimated Creatinine Clearance 89 ml/min; Glucose 85 mg/dl (70-99); Hematocrit 37.5 % (39.0-52.0); Hemoglobin 12.8 g/dL (13.0-18.0); Magnesium 1.9 mg/dl (1.6-2.3); Mean Corp Hgb Conc. 34.1 g/dL (33.0-37.0); Mean Corpuscular Hgb 30.8 pg (27.0-31.0); Mean Corpuscular Volume 90.1 fL (80.0-94.0); Mean Platelet Volume 9.7 fL (7.4-10.4); Platelet Count 217 10^3/uL (130-400); Potassium 3.6 mmol/L (3.5-5.1); Red Blood Cell Count 4.16 10^6/uL (4.70-6.10); Red Cell Dist. Width 12.7 % (11.5-14.5); Sodium 138 mmol/L (135-145); White Blood Cell Count 8.7 10^3/uL (4.8-10.8); eGFR > 60.00
[2023-08-25 06:00] VITALS: BMI 30.8
[2023-08-25 07:27] VITALS: BP 130/69
--- NOTE | 2023-08-25 08:25 | W.PN.HOSP.TC ---
Today's Communication/Plan
-
see A/P
Assessment / Plan
Assessment / Plan
82-year-old man with history of IPF, CAD, CVA; p/w syncope. He was sitting at the kitchen counter after eating breakfast then suddenly slumped over and briefly lost consciousness. He has had a few episodes of vomiting since. He had some dizziness
immediately following the syncopal episode which has now resolved. He reported a productive cough over the past few weeks with yellow sputum.
Prior to syncopal episode, there was no preceding chest pain, shortness of breath, back pain, or headache, any recent fever, chills, abdominal pain.
He is on baby aspirin. No other blood thinners. Comfortable during the interview and exam.
A/P:
# Cardiogenic syncope due to sustained VT/VF on device interrogation
# Sick sinus syndrome status post pacemaker 04/2020
s/p amiodarone
Off heparin drip
s/p cardiac cath 08/23: PCI to obtuse marginal branch, also noted residual coronary disease and sequential KLJ-ICE-yzjf-sided PLB, and 100% occlusion of the LAD and RCA
Continue aspirin and clopidogrel
Card recc sequential SVG coronary intervention in the next day or 2 depending on renal function
Cont SENIOR MAINFRAME PROGRAMMER ANALYST Coreg, Lipitor
Can check updated echo
Cardiology on board
Other medical problems:
# Hypertension
# hyperlipidemia
cont SENIOR MAINFRAME PROGRAMMER ANALYST Lipitor
# CAD status post CABG 1984, PCI 2011
# Right CEA 2020
# Chronic pulmonary fibrosis managed by [facility], mild per patient
stable, on RA
DVT ppx: Lovenox SQ
Full code
Anticipated Discharge: > 48 hours
Subjective/Interval History
-
Date of Service: August 25, 2023
Objective Data
-
Labs:
Laboratory Results
08/25/23
03:55
WBC 8.7
Hgb 12.8 L
Hct 37.5 L
Plt Count 217
Sodium 138
Potassium 3.6
Chloride 104
Carbon Dioxide 27
BUN 15
Creatinine 0.5 L
Glucose 85
Calcium 9.4
Vital Signs:
Vital Signs
Temp Pulse Resp BP Pulse Ox
36.8 C 61 20 133/58 91
08/25/23 07:25 08/25/23 03:48 08/25/23 07:25 08/25/23 03:48 08/25/23 07:25
I&O
08/24/23 08/25/23 08/26/23
06:59 06:59 06:59
Intake Total 240 / 240 620 / 620
Balance 240 / 240 620 / 620
Review of Systems
-
All other systems: Reviewed and negative
Physical Exam
-
General: Well Developed, Well Nourished, Comfortable and Conversant
HEENT: Normocephalic, Atraumatic, Nose Appears Normal, Ears Appear Normal and Oxygen (2L NC)
Respiratory: Clear to Auscultation and Non Labored Respirations; Negative Accessory Resp Muscle Use
Cardiac: Regular Rhythm and S1/S2
GI: Soft, Nontender, Nondistended and Normal Bowel Sounds
Skin: Warm and Dry
Neuro: Awake, Alert, Oriented and AO x 3
Psych: Calm and Intact Judgement/Insight
Data Reviewed
-
Labs: Labs Reviewed by me
[2023-08-25] MEDS: ZYLOPRIM 100 MG PO (08:54)
[2023-08-25] MEDS: COREG 3.125 MG PO ×2 (08:54→19:45)
[2023-08-25] MEDS: PLAVIX 600 MG PO (08:54)
[2023-08-25] MEDS: PROTONIX 40 MG PO (08:54)
[2023-08-25] MEDS: ASPIR LOW (ENTERIC COATED) 81 MG PO (08:56)
[2023-08-25] MEDS: VITAMIN B-12 PO (08:57)
[2023-08-25] MEDS: FOLVITE PO (08:57)
[2023-08-25] MEDS: VITAMIN D3 (cholecalciferol) PO (08:57)
--- NOTE | 2023-08-25 10:40 | PTCARENOTE ---
received patient this am, patient in bed, monitor showing A paced, VSS. patient remains NPO for heart cath again today. right fem. site, ecchymotic, left radial D/I, distal pulses palpable. patient voices no concern of feeling nauseated. Echo being
completed at bedside.
--- NOTE | 2023-08-25 10:58 | CARDSERVLU ---
Echocardiogram with [facility]ason completed after protocol screening completed. Allergies verified.
Patent IV site: _Left hand 20 G PC site clear____
IV site flushed with 0.9% NaCl pre and post administration.
Diluted bolus method utilized to enhance visualization of ventricular andre.
Total volume given: ___3_ mL
Patient tolerated all procedures well without complications.
[2023-08-25 11:16] VITALS: BP 122/69
--- NOTE | 2023-08-25 12:37 | W.PN.CARDCBS ---
Addendum entered and electronically signed by Francois Sun MD 08/25/23 15:16:
Attending addendum: Patient seen and examined. PA note reviewed and findings confirmed by me. Briefly, complex coronary intervention from both right common femoral and left radial arterial access. The circumflex was stented with a 3.5 x 34 mm
Allen stent. Given contrast load will monitor for an additional day and plan returning to the catheterization laboratory 06/26/2023. We have ordered a MB 1 guide catheter (not currently in stock) which was requested because of a notation in my last
interventional report that an MA 1 guide catheter was too short and required MB1 catheter to complete the procedure. A long (45 cm) sheath from left femoral access would be reasonable with filter wire distal protection. He is currently off
amiodarone. He has IPF.. He had been started on amiodarone 200mg bid. Will discuss with EP and Dr Merchant who is patients primary palliative care specialist
PLAN:
-Patient will return for PCI of SVG tomorrow
-Will discuss timing of ICD with EP. Would lean toward earlier rather than waiting as he had no anginal symptoms or warning before syncope but defer to EP
Original Note:
Today's Communication / Plan
-
for staged intervention of SVG in AM
continue asa, plavix
echo
replete K. continue coreg
to discuss need for AAD therapy and device upgrade with VT/VF on presentation
Impression / Plan
-
Primary palliative care specialist: Pedro Merchant MD
.
Impression:
Syncope
Sustained VT/VF on device interrogation
NSTEMI, peak trop 0.426
s/p OM1 PCI 08/24/23 with residual SVG-PDA disease, planned for staged intervention
Sick sinus syndrome status post pacemaker 04/2020
Hypertension
Mixed hyperlipidemia
Dilated aortic root
CAD status post CABG 1984, PCI 2011
Right CEA 2020
PVCs, asymptomatic
Chronic pulmonary fibrosis managed by [facility], mild per patient
TTE 05/15/2022: Normal LV size and function, EF 53%, mild LVH, G1 DD, normal RV size, mildly reduced RV function, severely dilated LA, mild MR, mild AR, mild TR PASP 30 mmHg, dilated aortic root 4.0 cm at SOV, 3.8 at STJ, 4.0 at ascending aorta, no
prior change from 04/2020 per report
ECHO 08/25/23: pending
Plan:
-presented with syncope secondary to sustained VT/VF
-trop peaked at 0.426. no CP
-underwent cath 08/23 resulting in OM1 PCI. with residual CAD in SVG, planned for staged intervention in AM
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 received compazine, post nausea improved however then with SOB and lightheadedness, which has subsequently subsided
-continue asa, plavix
-LDL 36. continue statin
-as was revascularized, will need to discuss with EP need for continued AAD therapy (was placed on amio on admission however subsequently stopped) as well as device upgrade given VT/VF on presentation. remains in apaced rhythm with frequent PVCs, up
to 3 beats of NSVT
-continue coreg
-replete K, 3.6 on 08/24. mag 1.9.
-for echo today
-CXR with chronic pulm fibrosis without clear superimposed process
-d/w nursing
Progress Note - Punchboard Filling Machine Operator
Subjective
Date of Service: August 25, 2023
no CP, SOB.
Objective
Labs:
08/25/23 03:55
08/25/23 03:55
Labs
Hgb 12.8 g/dL (13.0-18.0) L 08/25/23 03:55
Hct 37.5 % (39.0-52.0) L 08/25/23 03:55
Plt Count 217 10^3/uL (130-400) 08/25/23 03:55
APTT 135.0 Sec (23.4-35.0) H 08/24/23 12:02
Sodium 138 mmol/L (135-145) 08/25/23 03:55
Potassium 3.6 mmol/L (3.5-5.1) 08/25/23 03:55
BUN 15 mg/dl (9-20) 08/25/23 03:55
Creatinine 0.5 mg/dL (0.7-1.3) L 08/25/23 03:55
Glucose 85 mg/dl (70-99) 08/25/23 03:55
Troponins
08/23/23 08/23/23 08/23/23
09:20 15:18 15:20
Troponin I < 0.012 0.259 H* D Cancelled
08/23/23 08/23/23 08/23/23
17:44 20:44 23:18
Troponin I Cancelled Cancelled 0.361 H* D
08/24/23 08/24/23
05:40 12:02
Troponin I 0.426 H* 0.277 H* D
Vital Signs and I&O:
Vital Signs
Temp Pulse Resp BP Pulse Ox
98.2 F 61 18 122/69 94
08/25/23 11:19 08/25/23 11:16 08/25/23 11:19 08/25/23 11:16 08/25/23 11:19
Vital Signs
Temp Pulse Resp BP Pulse Ox
98.2 F 61 18 122/69 94
08/25/23 11:19 08/25/23 11:16 08/25/23 11:19 08/25/23 11:16 08/25/23 11:19
Intake & Output
08/23/23 08/24/23 08/25/23 08/26/23
07:59 07:59 07:59 07:59
Intake Total 240 / 240 620 / 620
Balance 240 / 240 620 / 620
Physical Exam
Physical Exam
GEN: No distress, awake, alert, oriented x3
HEENT: supple, anicteric, mmm, eomi
LUNGS: Few crackles B/L bases, few exp wheezes
CV: Reg, S1/S2, no murmur
ABD: soft, BS+, NT/ND
EXT: No cyanosis, clubbing. trace edema of B/L LE
NEURO: Gross non-focal
SKIN: Warm, pink, dry. No rash. L wrist site c/d/i
[2023-08-25] MEDS: KCL 40 MEQ PO (13:50)
--- NOTE | 2023-08-25 13:51 | PTCARENOTE ---
K 3.6, supplemented as ordered.
[2023-08-25 15:19] VITALS: BP 112/42
[2023-08-25] MEDS: LOVENOX 40 MG SC (17:05)
[2023-08-25 19:04] VITALS: BP 122/66
[2023-08-25] MEDS: LIPITOR 40 MG PO (19:45)
[2023-08-25] MEDS: VITAMIN B-12 500 MCG PO (19:45)
[2023-08-25 22:44] VITALS: BP 114/61
[2023-08-25] MEDS: CARDURA 1 MG PO (22:44)
[2023-08-26] VITALS (34 sets, daily range): BP systolic 91–138; BP diastolic 46–79; BMI 30.8
--- NOTE | 2023-08-26 03:11 | DOWNTIME ---
There was a [employer] Client Felt Finishing Supervisor Downtime on 08/25/2023 from 0100 to 08/26/2023 at 0300. Downtime documentation of patient's care, including medication administrations, has been reconciled in the electronic record per guidelines. Refer to the
patient's paper chart under the miscellaneous tab to see printed paper medication records and downtime forms.
[2023-08-26 04:59] LABS: Hematocrit 33.8 % (39.0-52.0); Hemoglobin 11.7 g/dL (13.0-18.0); Mean Corp Hgb Conc. 34.6 g/dL (33.0-37.0); Mean Corpuscular Hgb 31.7 pg (27.0-31.0); Mean Corpuscular Volume 91.6 fL (80.0-94.0); Mean Platelet Volume 9.9 fL (7.4-10.4); Platelet Count 212 10^3/uL (130-400); Red Blood Cell Count 3.69 10^6/uL (4.70-6.10); Red Cell Dist. Width 12.7 % (11.5-14.5); White Blood Cell Count 9.1 10^3/uL (4.8-10.8)
[2023-08-26 05:26] LABS: Blood Urea Nitrogen 20 mg/dl (9-20); Calcium 9.2 mg/dl (8.4-10.2); Carbon Dioxide 25 mmol/L (22-30); Chloride 105 mmol/L (98-107); Estimated Creatinine Clearance 88 ml/min; Glucose 94 mg/dl (70-99); Potassium 3.9 mmol/L (3.5-5.1); Sodium 137 mmol/L (135-145); eGFR > 60.00
--- NOTE | 2023-08-26 08:21 | W.PN.HOSP.TC ---
Today's Communication/Plan
-
see A/P
Assessment / Plan
Assessment / Plan
82-year-old man with history of IPF, CAD, CVA; p/w syncope. He was sitting at the kitchen counter after eating breakfast then suddenly slumped over and briefly lost consciousness. He has had a few episodes of vomiting since. He had some dizziness
immediately following the syncopal episode which has now resolved. He reported a productive cough over the past few weeks with yellow sputum.
Prior to syncopal episode, there was no preceding chest pain, shortness of breath, back pain, or headache, any recent fever, chills, abdominal pain.
He is on baby aspirin. No other blood thinners. Comfortable during the interview and exam.
A/P:
# Cardiogenic syncope due to sustained VT/VF on device interrogation
# Sick sinus syndrome status post pacemaker 04/2020
s/p amiodarone
Off heparin drip
s/p cardiac cath 08/23: PCI to obtuse marginal branch, also noted residual coronary disease and sequential VBA-PVN-tuna-sided PLB, and 100% occlusion of the LAD and RCA
Continue aspirin and clopidogrel
For repeat cath today for PCI of SVG
Timing of ICD TBD by EP.
Cont MIRROR MACHINE FEEDER Coreg, Lipitor
updated echo this admission 08/24: EF 50-55%. Aortic root and the ascending aorta dilatation. No significant change in ejection fraction. Regional wall motion abnormalities noted.
Cardiology on board
Other medical problems:
# Hypertension
# hyperlipidemia
cont MIRROR MACHINE FEEDER Lipitor
# CAD status post CABG 1984, PCI 2011
# Right CEA 2020
# Chronic pulmonary fibrosis managed by [facility], mild per patient
stable, on RA
DVT ppx: Lovenox SQ
Full code
Anticipated Discharge: 24 - 48 hours
Subjective/Interval History
-
Date of Service: August 26, 2023
Objective Data
-
Labs:
Laboratory Results
08/26/23
04:40
WBC 9.1
Hgb 11.7 L
Hct 33.8 L
Plt Count 212
Sodium 137
Potassium 3.9
Chloride 105
Carbon Dioxide 25
BUN 20
Creatinine 0.5 L
Glucose 94
Calcium 9.2
Vital Signs:
Vital Signs
Temp Pulse Resp BP Pulse Ox
36.6 C 66 20 102/59 93
08/26/23 07:59 08/26/23 04:37 08/26/23 07:59 08/26/23 04:37 08/26/23 07:59
I&O
08/25/23 08/26/23 08/27/23
06:59 06:59 06:59
Intake Total 620 / 620 480 / 480
Balance 620 / 620 480 / 480
Review of Systems
-
All other systems: Reviewed and negative
Physical Exam
-
General: Well Developed, Well Nourished, Comfortable and Conversant
HEENT: Normocephalic, Atraumatic, Nose Appears Normal and Ears Appear Normal
Respiratory: Clear to Auscultation and Non Labored Respirations; Negative Accessory Resp Muscle Use
Cardiac: Regular Rhythm and S1/S2
GI: Soft, Nontender, Nondistended and Normal Bowel Sounds
Skin: Warm and Dry
Neuro: Awake, Alert, Oriented and AO x 3
Psych: Calm and Intact Judgement/Insight
Data Reviewed
-
Labs: Labs Reviewed by me
[2023-08-26] MEDS: ASPIR LOW (ENTERIC COATED) 81 MG PO (08:25)
[2023-08-26] MEDS: PROTONIX 40 MG PO (08:25)
[2023-08-26] MEDS: VITAMIN D3 (cholecalciferol) PO (08:26)
[2023-08-26] MEDS: FOLVITE PO (08:26)
[2023-08-26] MEDS: VITAMIN B-12 500 MCG PO ×2 (08:26→20:07)
[2023-08-26] MEDS: ZYLOPRIM 100 MG PO (08:26)
[2023-08-26] MEDS: PLAVIX 75 MG PO (08:26)
[2023-08-26] MEDS: COREG 3.125 MG PO ×2 (08:26→20:07)
--- NOTE | 2023-08-26 09:45 | ITS.CL.CATH ---
Lapidary Apprentice - Catheterization
Cardiac Catheterization
Procedure Report:
LEFT HEART CATHETERIZATION AND CORONARY INTERVENTION
Date of Procedure: August 26, 2023
Referring: Francois Sun
PROCEDURES:
1. Selective saphenous vein graft angiography.
2. Successful percutaneous coronary artery intervention of sequential 60 to 70% saphenous vein graft lesions proximal into mid vessel with 2 overlapping 4.0 x 28 mm Xience sonia point drug-eluting stents complicated by type III coronary perforation
status post 3 overlapping 4.5 x 26 mm, 4.0 x 26 mm and 5.0 x 26 mm papyrus covered stents with excellent final angiographic result and KADEN-3 flow.
3. Ultrasound-guided
INDICATION: Mr Jo is an 82-year-old gentleman with a remote history of coronary artery bypass grafting, PVCs, mild IPF and sick sinus syndrome requiring dual-chamber pacemaker placement in 2020. He was admitted to [facility] after a
syncopal episode. He had been sitting at the table when he slumped over. He spontaneously awoke and his reported that he was mildly nauseated and mildly confused. His pacemaker was interrogated with an episode of sustained ventricular
tachycardia/ventricular fibrillation. His troponin was mildly elevated peaking at 0.426 ng/mL for which she was referred for coronary angiogram on August 24, 2023 with subsequent successful stenting of the obtuse marginal branch with a 3.5 x 34 mm
Javon stent. He now returns for staged PCI to saphenous vein graft to his PDA and left PLB which was previously cannulated with an MPB1 catheter.
ACCESS: Left common femoral artery, 6 Surinamese sheath, under ultrasound guidance. Of note, given prior heart catheterization was notable for significant iliofemoral tortuosity, a 6 [place]inamese by 45 cm long sheath was placed upfront.
HEMODYNAMICS : (mmHg)
AO (s/d) : 133/62
LV (s/d) : 136/5
LVEDP : 11
CORONARY ANGIOGRAPHY: Given recent fall heart catheterization on August 24, 2023, [place] coronary arteries and CHA graft were not selectively engaged again on the study.
GRAFT ANGIOGRAPHY
1. GTS-AFS-vwam PLB : There is a stent in the proximal portion of the SVG-PDA-PLB. There is 30% proximal in-stent restenosis. The distal edge of the stent has a 60% stenotic segment at the distal edge of the stent. There are sequential stenosis
in the mid portion of the SVG 60% and 70%. The SVG is sequentially anastomosed to the PDA and left sided posterolateral branch. There is antegrade and retrograde filling of the PDA and PLB.
ANGIOPLASTY PROCEDURE DETAIL: Heparin was given once access was obtained to maintain a therapeutic ACT throughout the case. The saphenous vein graft was selectively engaged using a 6 Surinamese MPA B1 guide catheter. The lesion was navigated using a
190 cm 0.014' BMW coronary wire which was successfully advanced into the distal graft. Over this wire we introduced a 5.0 mm spider distal embolic protection device which was parked in the distal horizontal part of the graft. The BMW wire was then
retracted while the spider wire was used as a rail to deliver balloons and stents. The distal 70% lesion was predilated using a 3.5 x 20 mm semi-compliant balloon with good expansion. A 4.0 x 28 mm Xience drug-eluting stent was deployed distally
and was overlapped with a second 4.0 x 28 mm Xience sonia point drug-eluting stent proximally to covered diffuse disease from the proximal through the midportion overlapping with old stent from 2011. The stents were then postdilated using a 5.0 x 20
mm NC trek balloon at 18 samm with good expansion. Selective angiography after postdilatation showed concern for class III coronary perforation. Thankfully patient was asymptomatic without any EKG changes or hemodynamic compromise. Blood pressures
were stable in the 130s to 150s systolic. I urgently called for papyrus covered stents and for backup support which included my senior interventional cardiology partner, Dr. Max Camilo and CT surgeon, Dr. Tremayne Hagen. We proceeded first by
inserting and deploying a 4.0 x 26 mm papyrus covered stent in the midportion where the largest jet of the perforation was seen. This was deployed at nominal pressure for 40 seconds with good expansion. Another selective angiographic shot was
taken which revealed persistent leak. At this point we decided to overlap the stent proximally using a 4.5 x 26 mm papyrus covered stent which we deployed uneventfully. Given persistent leak we decided to post dilate both of the stents using 4.5 x
20 mm NC trek balloon at 18 samm. Despite this, leak persisted more distally. At this point the spider filter and wire unfortunately had migrated proximally. We decided to retrieve the spider filter at this point and advanced a 190 cm 0.014 BMW
wire into the distal vessel. Over this wire, a third 5.0 x 26 mm papyrus covered stent was deployed distally with good expansion and complete coverage of the perforation with an excellent final angiographic result. KADEN-3 flow persisted into the
distal vessels. Patient continues to remain asymptomatic without hemodynamic changes and stable blood pressures. A limited echocardiogram was performed while patient was on the cath table which showed a very trivial apical pericardial effusion
with no evidence of hemodynamic compromise. He had been loaded with clopidogrel 600 mg yesterday with plan to continue daily baby aspirin and Plavix. Left common femoral arterial sheath was sutured in place to make sure patient continues to remain
stable for the next 2 hours before we decide to discontinue the sheath using manual pressure once ACT is below 170 ms. Patient was transferred to CVICU for closer monitoring.
RADIATION SUMMARY: Fluoro Time (min): 27.4, Dose (mGy): 1325.8, DAP (Gy.cm2) : 91.7
Closure Device: None
CONCLUSION
1. Successful percutaneous coronary artery intervention of sequential 60 to 70% saphenous vein graft lesions proximal into mid vessel with 2 overlapping 4.0 x 28 mm Xience sonia point drug-eluting stents complicated by type III coronary perforation
status post 3 overlapping 4.5 x 26 mm, 4.0 x 26 mm and 5.0 x 26 mm papyrus covered stents with excellent final angiographic result and KADEN-3 flow.
2. Normal LVEDP
RECOMMENDATIONS
1. Continue aspirin and clopidogrel, along with high intensity statin and beta-turner as tolerated
2. Close monitoring in the CVICU and repeat limited echocardiogram later today to assess degree of pericardial effusion.
3. Discuss timing of pacemaker upgraded to ICD with electrophysiology.
4. Eventual outpatient referral for cardiac rehab
Copy to: Dr. Pedro Merchant, Dr. Francois Sun
Ellie Gong MD, FAC, [facility]
--- NOTE | 2023-08-26 10:40 | PTCARENOTE ---
Assumed care at 0700. AOx4. VSS. A paced on telemetry, HR 60s. Denies complaints this AM. Report given to farm labor contractor RNRanda. Patient now off unit in farm labor contractor.
[2023-08-26 11:06] LABS: ACT-LR - POC 276 Seconds (116-155)
[2023-08-26 11:31] LABS: ACT-LR - POC 284 Seconds (116-155)
[2023-08-26 12:00] LABS: ACT-LR - POC 310 Seconds (116-155)
[2023-08-26 12:37] LABS: ACT-LR - POC 237 Seconds (116-155)
[2023-08-26 12:49] LABS: ACT-LR - POC 269 Seconds (116-155)
[2023-08-26] MEDS: ZOFRAN 4 MG IV (15:14)
[2023-08-26 15:46] LABS: ACT-LR - POC 182 Seconds (116-155)
--- NOTE | 2023-08-26 16:06 | CM ---
Chart reviewed. Patient is independent of ADLS, lives with his in a 2 STH, , 1st floor set up, 1 DRE, ambulates with a SPC. Plan is for the patient to return home. CM to follow
--- NOTE | 2023-08-26 16:24 | PTCARENOTE ---
Pt with acute urinary retention. Dr. Gong aware. #16 deal catheter placed at this time. ECHO being done at this time.
--- NOTE | 2023-08-26 17:26 | PTCARENOTE ---
Left femoral sheath d/c'd by Rip from laborer pipeline. Left femoral dsg intact, no bleeding, no hematoma. see worklist for VS and groin checks.
[2023-08-26] MEDS: LOVENOX 40 MG SC (18:36)
--- NOTE | 2023-08-26 20:00 | PTCARENOTE ---
rec`d pt at 1900 in bed. AAOx3. SR on monitor. HR 70s-80s + pulses. no edema. afebrile. left femoral sheath puncture- c/d/i. continued site and vascular checks. Left hand Iv capped. 2L NC satting at 93-95%. diminished lung sounds. deal in place
draining tricia urine. right fem and left radial ecchymotic from previous procedure. scds on. safe environment maintained. call gale in reach.
[2023-08-26] MEDS: TYLENOL 650 MG PO (21:14)
[2023-08-26] MEDS: LIPITOR 40 MG PO (21:14)
[2023-08-26] MEDS: CARDURA 1 MG PO (21:47)
[2023-08-27] VITALS (16 sets, daily range): BP systolic 96–136; BP diastolic 43–81; BMI 30.7
--- NOTE | 2023-08-27 | PTCARENOTE ---
pt reassessed. no changes in pt assessment. pt resting comfortably.
[2023-08-27 04:26] LABS: Hematocrit 31.2 % (39.0-52.0); Hemoglobin 10.9 g/dL (13.0-18.0); Mean Corp Hgb Conc. 34.9 g/dL (33.0-37.0); Mean Corpuscular Hgb 31.3 pg (27.0-31.0); Mean Corpuscular Volume 89.7 fL (80.0-94.0); Mean Platelet Volume 9.8 fL (7.4-10.4); Platelet Count 201 10^3/uL (130-400); Red Blood Cell Count 3.48 10^6/uL (4.70-6.10); Red Cell Dist. Width 12.8 % (11.5-14.5); White Blood Cell Count 10.2 10^3/uL (4.8-10.8)
[2023-08-27 04:46] LABS: Blood Urea Nitrogen 18 mg/dl (9-20); Calcium 9.2 mg/dl (8.4-10.2); Carbon Dioxide 22 mmol/L (22-30); Chloride 105 mmol/L (98-107); Estimated Creatinine Clearance 88 ml/min; Glucose 97 mg/dl (70-99); Potassium 3.9 mmol/L (3.5-5.1); Sodium 137 mmol/L (135-145); eGFR > 60.00
--- NOTE | 2023-08-27 08:53 | W.PN.HOSP.TC ---
Today's Communication/Plan
-
see A/P
Assessment / Plan
Assessment / Plan
82-year-old man with history of IPF, CAD, CVA; p/w syncope. He was sitting at the kitchen counter after eating breakfast then suddenly slumped over and briefly lost consciousness. He has had a few episodes of vomiting since. He had some dizziness
immediately following the syncopal episode which has now resolved. He reported a productive cough over the past few weeks with yellow sputum.
Prior to syncopal episode, there was no preceding chest pain, shortness of breath, back pain, or headache, any recent fever, chills, abdominal pain.
He is on baby aspirin. No other blood thinners. Comfortable during the interview and exam.
A/P:
# Cardiogenic syncope due to sustained VT/VF on device interrogation
# Sick sinus syndrome status post pacemaker 04/2020
s/p amiodarone
Off heparin drip
Updated echo this admission 08/24: EF 50-55%. Aortic root and the ascending aorta dilatation. No significant change in ejection fraction. Regional wall motion abnormalities noted.
s/p cardiac cath 08/23: PCI to obtuse marginal branch, also noted residual coronary disease and sequential JMQ-HEF-bspb-sided PLB, and 100% occlusion of the LAD and RCA
s/p repeat cath 08/25 for PCI of SVG lesion
Continue aspirin and clopidogrel
Cont DIRECTOR INTELLIGENCE ANALYSIS PROGRAMS Coreg, Lipitor
Follow up echo 08/25 without significant pericardial effusion, noted trivial pericardial effusion. No significant change compared to prior echocardiogram
Repeat follow up echo ordered 08/26 for pericardial effusion eval and coronary perf
Timing of ICD TBD by EP.
Cardiology on board
Other medical problems:
# Hypertension
# hyperlipidemia
cont DIRECTOR INTELLIGENCE ANALYSIS PROGRAMS Lipitor
# CAD status post CABG 1984, PCI 2011
# Right CEA 2020
# Chronic pulmonary fibrosis managed by [facility], mild per patient
stable, on RA
DVT ppx: Lovenox SQ
Full code
Anticipated Discharge: 24 - 48 hours
Subjective/Interval History
-
Date of Service: August 27, 2023
Objective Data
-
Labs:
Laboratory Results
08/27/23
03:52
WBC 10.2
Hgb 10.9 L
Hct 31.2 L
Plt Count 201
Sodium 137
Potassium 3.9
Chloride 105
Carbon Dioxide 22
BUN 18
Creatinine 0.5 L
Glucose 97
Calcium 9.2
Vital Signs:
Vital Signs
Temp Pulse Resp BP Pulse Ox
36.8 C 61 20 134/56 92
08/27/23 04:00 08/27/23 07:00 08/27/23 07:00 08/27/23 07:00 08/27/23 07:00
I&O
08/26/23 08/27/23 08/28/23
06:59 06:59 06:59
Intake Total 480 / 480 100 / 100
Output Total 960 / 960
Balance 480 / 480 -860 / -860
Review of Systems
-
All other systems: Reviewed and negative
Physical Exam
-
General: Well Developed, Well Nourished, Comfortable and Conversant
HEENT: Normocephalic, Atraumatic, Nose Appears Normal, Ears Appear Normal and Oxygen (2L NC)
Respiratory: Clear to Auscultation and Non Labored Respirations; Negative Accessory Resp Muscle Use
Cardiac: Regular Rhythm and S1/S2
GI: Soft, Nontender, Nondistended and Normal Bowel Sounds
Skin: Warm and Dry
Neuro: Awake, Alert, Oriented and AO x 3
Psych: Calm and Intact Judgement/Insight
Data Reviewed
-
Medical Tests (Nuc Med, Echo etc): Report Reviewed by me (echo reports)
Labs: Labs Reviewed by me
--- NOTE | 2023-08-27 09:00 | PTCARENOTE ---
Patient received from previous shift resting comfortably in bed, AAO x 3, denies pain at this time. NSR/V-paced via cm, SaO2 @ 96% on 2lnc. L groin procedural site cdi, no ecchymosis or hematoma noted, distal pulse palp. Darling catheter to gravity,
draining tricia urine. NPO status currently in anticipation of procedure later today. Patient updated to plan of care for the day, in agreement. See work list for full assessment and interventions performed.
[2023-08-27] MEDS: PLAVIX 75 MG PO (09:07)
[2023-08-27] MEDS: VITAMIN D3 (cholecalciferol) PO ×2 (09:07→09:14)
[2023-08-27] MEDS: COREG 3.125 MG PO ×2 (09:07→20:16)
[2023-08-27] MEDS: PROTONIX 40 MG PO (09:07)
[2023-08-27] MEDS: FOLVITE PO ×2 (09:07→09:14)
[2023-08-27] MEDS: VITAMIN B-12 500 MCG PO ×2 (09:07→20:16)
[2023-08-27] MEDS: ZYLOPRIM 100 MG PO (09:07)
[2023-08-27] MEDS: ASPIR LOW (ENTERIC COATED) 81 MG PO (09:08)
--- NOTE | 2023-08-27 10:34 | CM ---
Chart reviewed. Patient is independent of ADLS, lives with his in a 2 STH, 1st floor set up, 1 DRE, ambulates with a SPC. Patient is waiting or an ICD upgrade. Patient is not current with [facility] and is not interested. Plan is for the patient to
return home when medically stable. CM to follow
--- NOTE | 2023-08-27 12:08 | PTCARENOTE ---
VS obtained, stable. Patient resting comfortably, awaiting transfer to [facility]. at bedside.
--- NOTE | 2023-08-27 12:17 | W.PN.CARDCBS ---
Addendum entered and electronically signed by Ellie Gong MD 08/27/23 16:48:
I saw and examined the patient.
The Remotely Operated Vehicle's note was reviewed and I agree with the note.
Comment: Patient did well overnight and does not offer any significant complaints this morning. Left groin site without any active issues.
Vital signs and lab work reviewed. On exam patient is well-appearing in no acute distress, fine bibasilar rales, normal S1 and S2, no murmurs, rubs or gallops, abdomen is soft, nontender, nondistended with active bowel sounds and warm extremities,
dressing is in place over the right common femoral artery access site without evidence of hematoma or bruit,
Ecchymosis noted on the right groin site
Repeat limited echocardiogram reviewed from this morning with very trivial stable pericardial effusion. Hemodynamically he has remained stable overnight.
Patient is stable for ICD upgrade later today. I have discussed with my EP colleagues and if scheduling allows we will plan to move forward with this.
Given patient is status post OM PCI on August 24, 2023 and subsequent SVG to RPDA PCI August 26, 2023 complicated by coronary perforation status post multiple covered stents, he will continue on daily baby aspirin and Plavix along with high intensity
statin
Outpt referral for cardiac rehab
Ellie Gong MD, [facility], [facility]
Original Note:
Today's Communication / Plan
-
plan for device upgrade today
Impression / Plan
-
Primary classifier tender: Pedro Merchant MD
.
Impression:
Syncope
Sustained VT/VF on device interrogation
NSTEMI, peak trop 0.426
s/p OM1 PCI 08/24/23 with residual SVG-PDA disease, planned for staged intervention
Sick sinus syndrome status post pacemaker 04/2020
Hypertension
Mixed hyperlipidemia
Dilated aortic root
CAD status post CABG 1984, PCI 2011
Right CEA 2020
PVCs, asymptomatic
Chronic pulmonary fibrosis managed by [facility], mild per patient
TTE 05/15/2022: Normal LV size and function, EF 53%, mild LVH, G1 DD, normal RV size, mildly reduced RV function, severely dilated LA, mild MR, mild AR, mild TR PASP 30 mmHg, dilated aortic root 4.0 cm at SOV, 3.8 at STJ, 4.0 at ascending aorta, no
prior change from 04/2020 per report
ECHO 08/25/23: EF 50-55%, hypokinesis of inferolateral wall and apical andre, enlarged RV size with reduced RV systolic function, severely dilated LA, mild MR, mild AR, mild TR, PAP 55 to 60 mmHg, normal pericardium without effusion, aortic root and
ascending aorta dilatation
Plan:
-presented with syncope secondary to sustained VT/VF
-trop peaked at 0.426. no CP
-underwent cath 08/23 resulting in OM1 PCI. s/p return to hot plate plywood press laborer 08/25 for SVG PCI x2 complicated by type 3 coronary perforation s/p 3 overlapping covered stents
-serial echoes post cath 08/25 and 08/26 with stable trivial pericardial effusion
-feeling well. hgb 10.9. EKG SR with 1st degree av block and RBBB, stable compared to prior
-continue asa, plavix, statin, coreg, cardura
-planned for device upgrade to ICD given presentation of syncope from VT/VF today
-ok for transfer to IVU post upgrade
-d/w nursing
Progress Note - Endband Sizer
Subjective
Date of Service: August 27, 2023
resting comfortably without complaints of CP, SOB, palpitations
Objective
Labs:
08/27/23 03:52
08/27/23 03:52
Labs
Hgb 10.9 g/dL (13.0-18.0) L 08/27/23 03:52
Hct 31.2 % (39.0-52.0) L 08/27/23 03:52
Plt Count 201 10^3/uL (130-400) 08/27/23 03:52
APTT 135.0 Sec (23.4-35.0) H 08/24/23 12:02
Sodium 137 mmol/L (135-145) 08/27/23 03:52
Potassium 3.9 mmol/L (3.5-5.1) 08/27/23 03:52
BUN 18 mg/dl (9-20) 08/27/23 03:52
Creatinine 0.5 mg/dL (0.7-1.3) L 08/27/23 03:52
Glucose 97 mg/dl (70-99) 08/27/23 03:52
Troponins
08/24/23
12:02
Troponin I 0.277 H* D
Vital Signs and I&O:
Vital Signs
Temp Pulse Resp BP Pulse Ox
98.4 F 60 26 130/58 93
08/27/23 11:47 08/27/23 12:00 08/27/23 12:00 08/27/23 12:00 08/27/23 11:47
Vital Signs
Temp Pulse Resp BP Pulse Ox
98.4 F 60 26 130/58 93
08/27/23 11:47 08/27/23 12:00 08/27/23 12:00 08/27/23 12:00 08/27/23 11:47
Intake & Output
08/25/23 08/26/23 08/27/23 08/28/23
07:59 07:59 07:59 07:59
Intake Total 620 / 620 480 / 480 100 / 100
Output Total 960 / 1005 115 / 115
Balance 620 / 620 480 / 480 -860 / -905 -115 / -115
Physical Exam
Physical Exam
GEN: No distress, awake, alert, oriented x3. sitting in chair
HEENT: supple, anicteric, mmm, eomi
LUNGS: Crackles at bases, no wheezes
CV: Reg, S1/S2, no murmur
ABD: soft, BS+, NT/ND
EXT: No cyanosis, clubbing, edema
NEURO: Gross non-focal
SKIN: Warm, pink, dry. No rash
--- NOTE | 2023-08-27 13:29 | PTCARENOTE ---
Dr. Henson and CCL team to bedside, consent obtained. Patient transported to CCL via bed for procedure. Patient to be transferred to IVU post procedure, all belongings taken to unit.
--- NOTE | 2023-08-27 14:13 | W.PN.UPDATE ---
Addendum entered and electronically signed by Anthony Ott DO 08/27/23 15:45:
Addendum:
sustained VT/VF with syncope evident on device interrogation
Original Note:
Update Note
Progress Note Update
Discussed with patient and spouse regarding device upgrade from dual chamber pacemaker to dual chamber ICD in the setting of aborted sudden cardiac (VT/VF documented on PPM interrogation associated with sudden syncope). We discussed ICD
indications for primary prevention and secondary prevention patients including 5 year sudden risk. We also discussed implant procedure in detail including an approximate 1:1000 risk of GA/stroke/ and a 1% risk of
pneumothorax/tamponade/infection/bleeding. We discussed the less than 1% risk of wires bending, breaking, or tearing through the lifetime of the device requiring surgery or procedure to fix. We discussed the less than 1% risk of device/lead
advisory or recall and requirement for monitoring for surveillance. We also discussed post procedure implant restrictions including positions to avoid with implant arm for first six weeks after implant as well as driving restrictions. We discussed
post implant possibility of inappropriate shocks from device and programming strategies to minimize this risk. Patient verbalized understanding, agreed with plan, and signed consent. In EP lab, left arm venogram was performed to evaluate the
vasculature prior to procedure. 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 No contrast visualized passing through occlusion. Due to occlusion and need for ICD upgrade in the setting
of secondary prevention for aborted sudden cardiac , recommend lifevest wearable defibrillator as bridge to extraction and re-implantation. Discussed this at length with the patient who verbalized understanding and agreed with the plan.
[2023-08-27] MEDS: LOVENOX 40 MG SC (17:40)
--- NOTE | 2023-08-27 17:46 | PTCARENOTE ---
Pt received from hot plate plywood press laborer post venogram only, unable to do pacer upgrade to ICD. Pt denied any discomfort, very eager to be up walking. Darling catheter removed at 15:15, pt has voided 25mls dark tricia urine, twice so far. Pt OOB to chair with
minimal assistance. Bilateral femoral arterial sites ecchymotic, no sign of bleeding or hematoma. Telemetry shows sinus rhythm with first degree AV block and RBBB and prolonged QT interval. [employer] fundraising sale representative explained lifevest to pt and his ,
plan for fitting tomorrow.
--- NOTE | 2023-08-27 20:24 | PTCARENOTE ---
Assumed pt care. Walking rounds completed with previous RN. Pt AAO x 4, denies pain/discomfort at time of assessment. Reports difficulty sleeping during previous night - discussed interventions to promote sleep tonight. Pt on 4L NC - weaned to 2L NC
- POX 94-96%. Posterior BS clear/equal - coarse in R base. Productive cough - sputum thick/clear-valentin. Denies SOB/PAUL/orthopnea. Pt 100% a-paced on monitor, heart tones normal, denies CP, no edema noted. +1 b/l DP +2 b/l Radial pulses. BS audible,
ecchymotic areas noted around umbilicus, reports fair appetite. Pt due to void - reported small voids s/p catheter removal, reports dysuria. R & L groin site dressings CDI, soft/non-tender. PIV x 1 present & patent. See JUN. VSS.
[2023-08-27] MEDS: LIPITOR 40 MG PO (21:14)
[2023-08-27] MEDS: CARDURA 1 MG PO (21:14)
--- NOTE | 2023-08-27 21:22 | PTCARENOTE ---
Pt attempted to use urinal independently - accidental spill on floor/unmeasurable void s/p catheter removal. Pt denied dysuria & reported relief with voiding. Pt bathed with assistance. Brushed teeth, washed face independently. Assisted back into
bed. POX 92% on RA. See MAR. SCD's applied. No other changes.
[2023-08-28 04:37] VITALS: BP 110/50
[2023-08-28 05:02] VITALS: BMI 31.0
--- NOTE | 2023-08-28 05:05 | PTCARENOTE ---
VS obtained. Pt stood to void - 175 mL dark/cloudy/tricia. Weight obtained on standing scale. Labs drawn & sent. Pt assisted into bed.
[2023-08-28 05:22] LABS: Hematocrit 31.7 % (39.0-52.0); Hemoglobin 10.7 g/dL (13.0-18.0); Mean Corp Hgb Conc. 33.8 g/dL (33.0-37.0); Mean Corpuscular Hgb 31.6 pg (27.0-31.0); Mean Corpuscular Volume 93.5 fL (80.0-94.0); Mean Platelet Volume 10.5 fL (7.4-10.4); Platelet Count 196 10^3/uL (130-400); Red Blood Cell Count 3.39 10^6/uL (4.70-6.10); Red Cell Dist. Width 12.6 % (11.5-14.5); White Blood Cell Count 10.5 10^3/uL (4.8-10.8)
[2023-08-28 05:54] LABS: Blood Urea Nitrogen 23 mg/dl (9-20); Calcium 8.8 mg/dl (8.4-10.2); Carbon Dioxide 26 mmol/L (22-30); Chloride 103 mmol/L (98-107); Estimated Creatinine Clearance 88 ml/min; Glucose 101 mg/dl (70-99); Potassium 3.9 mmol/L (3.5-5.1); Sodium 136 mmol/L (135-145); eGFR > 60.00
[2023-08-28 07:04] VITALS: BP 106/49
[2023-08-28] MEDS: ASPIR LOW (ENTERIC COATED) 81 MG PO (08:32)
[2023-08-28] MEDS: FOLVITE 0.400000000000000022 MG PO (08:32)
[2023-08-28] MEDS: PLAVIX 75 MG PO (08:32)
[2023-08-28] MEDS: PROTONIX 40 MG PO (08:32)
[2023-08-28] MEDS: VITAMIN B-12 500 MCG PO (08:32)
[2023-08-28] MEDS: VITAMIN D3 (cholecalciferol) 25 MCG PO (08:33)
[2023-08-28] MEDS: COREG 3.125 MG PO (08:33)
[2023-08-28 08:36] VITALS: BP 110/70
[2023-08-28] MEDS: ZYLOPRIM 100 MG PO (08:37)
--- NOTE | 2023-08-28 09:48 | W.PN.HOSP.TC ---
Today's Communication/Plan
-
d/c once LifeVest arranged
Assessment / Plan
Assessment / Plan
82-year-old man with history of IPF, CAD, CVA; p/w syncope. He was sitting at the kitchen counter after eating breakfast then suddenly slumped over and briefly lost consciousness. He has had a few episodes of vomiting since. He had some dizziness
immediately following the syncopal episode which has now resolved. He reported a productive cough over the past few weeks with yellow sputum.
Prior to syncopal episode, there was no preceding chest pain, shortness of breath, back pain, or headache, any recent fever, chills, abdominal pain.
He is on baby aspirin. No other blood thinners. Comfortable during the interview and exam.
Cardiogenic syncope due to sustained VT/VF on device interrogation--Sick sinus syndrome status post pacemaker 04/2020--s/p amiodarone--Off heparin drip
Updated echo this admission 08/24: EF 50-55%. Aortic root and the ascending aorta dilatation. No significant change in ejection fraction. Regional wall motion abnormalities noted.
s/p cardiac cath 08/23: PCI to obtuse marginal branch, also noted residual coronary disease and sequential [id number]-xruo-sided PLB, and 100% occlusion of the LAD and RCA
s/p repeat cath 08/25 for PCI of SVG lesion
Continue aspirin and clopidogrel
Cont FISCAL AGENT Coreg, Lipitor
Follow up echo 08/25 without significant pericardial effusion, noted trivial pericardial effusion. No significant change compared to prior echocardiogram
Repeat follow up echo ordered 08/26 for pericardial effusion eval and coronary perf
Timing of ICD TBD by EP, outpt as has obstruction left subclavian/innominate with collateralization past obstruction
Other medical problems:
Essential Hypertension
hyperlipidemia
cont FISCAL AGENT Lipitor
CAD status post CABG 1984, PCI 2011
Right CEA 2020
Chronic pulmonary fibrosis managed by [facility], mild per patient
stable, on RA
DVT ppx: Lovenox SQ
Full code
Anticipated Discharge: Today
Subjective/Interval History
-
Date of Service: August 28, 2023
pt ready for d/c once Lifevest arranged
Objective Data
-
Labs:
Laboratory Results
08/28/23
04:48
WBC 10.5
Hgb 10.7 L
Hct 31.7 L
Plt Count 196
Sodium 136
Potassium 3.9
Chloride 103
Carbon Dioxide 26
BUN 23 H
Creatinine 0.5 L
Glucose 101 H
Calcium 8.8
Vital Signs:
max temp for 24 hours
08/28/23
07:04
Temp 98.7 F
Vital Signs
Temp Pulse Resp BP Pulse Ox
98.7 F 81 20 110/70 93
08/28/23 07:04 08/28/23 08:33 08/28/23 07:04 08/28/23 08:33 08/28/23 08:27
I&O
08/27/23 08/28/23 08/29/23
06:59 06:59 06:59
Intake Total 100 / 100 990 / 990
Output Total 960 / 960 385 / 385 200 / 200
Balance -860 / -860 605 / 605 -200 / -200
Review of Systems
-
All other systems: Reviewed and negative
Physical Exam
-
General: Well Developed, Well Nourished and No Apparent Distress
HEENT: Normocephalic and Atraumatic
Respiratory: Crackles (at bases)
Cardiac: Regular Rhythm and S1/S2; Negative Murmur
GI: Soft, Nontender, Nondistended and Normal Bowel Sounds
Musculoskeletal: No Clubbing, No Cyanosis and No Edema
Skin: Warm
Neuro: Awake
[2023-08-28 10:59] VITALS: BP 105/66
--- NOTE | 2023-08-28 11:38 | CM ---
CM following for DC planning needs.
Pt. transferred to IVU from CVICU yesterday.
Reviewed initial assessment. Pt. resides w/ spouse in a private, 2 story home. Pt. is functionally indep. w/ use of a SPC at baseline.
Received referral for LifeVest on 08/26. Submitted all necessary clinical information to LifeVest.
Followed up with referral today. Was notified that LifeVest was approved. Fit will occur this afternoon at 5PM.
I have notified MD, Cardiology PA-C, RN.
Met w/ patient at bedside. Notified of LifeVest approval and fitting; he was aware.
Offered VN; patient declines.
Plan is for home once medically stable w/ LifeVest.
There are no add'l needs identified.
--- NOTE | 2023-08-28 11:46 | W.PN.CARDCBS ---
Addendum entered and electronically signed by Ellie Gong MD 08/28/23 16:15:
I saw and examined the patient.
The Telegraph Mechanic's note was reviewed and I agree with the note.
Comment: Patient did well overnight and does not offer any significant complaints this morning.
Vital signs and lab work reviewed. On exam patient is well-appearing in no acute distress, fine bibasilar rales, normal S1 and S2, no murmurs, rubs or gallops, abdomen is soft, nontender, nondistended with active bowel sounds and warm extremities,
dressing is in place over the right common femoral artery access site without evidence of hematoma or bruit, Ecchymosis noted on the right groin site
ICD upgrade was attempted yesterday however he was found to have venous occlusion and thus upgrade could not be performed
Recommendations:
Given patient is status post OM PCI on August 24, 2023 and subsequent SVG to RPDA PCI August 26, 2023 complicated by coronary perforation status post multiple covered stents, he will continue on daily baby aspirin and Plavix along with high intensity
statin
Plan is to fit him for LifeVest this afternoon with follow-up arranged for September 11, 2023 with A phone call from 4 pacemaker extraction and reimplantation of ICD.
Continued goal-directed medical therapy for coronary artery disease.
Outpt referral for cardiac rehab
Ellie Gong MD, [facility], [facility]
Original Note:
Today's Communication / Plan
-
lifevest fitting this afternoon
EP eval for extraction, Dr. Cabrera, arranged for 09/10
continue asa, plavix, statin, coreg, cardura
planned for DC this evening
Impression / Plan
-
Primary satellite technician: Pedro Merchant MD
.
Impression:
Syncope
Sustained VT/VF on device interrogation
NSTEMI, peak trop 0.426
s/p OM1 PCI 08/24/23 with residual SVG-PDA disease, planned for staged intervention
Sick sinus syndrome status post pacemaker 04/2020
Hypertension
Mixed hyperlipidemia
Dilated aortic root
CAD status post CABG 1984, PCI 2011
Right CEA 2020
PVCs, asymptomatic
Chronic pulmonary fibrosis managed by [facility], mild per patient
TTE 05/15/2022: Normal LV size and function, EF 53%, mild LVH, G1 DD, normal RV size, mildly reduced RV function, severely dilated LA, mild MR, mild AR, mild TR PASP 30 mmHg, dilated aortic root 4.0 cm at SOV, 3.8 at STJ, 4.0 at ascending aorta, no
prior change from 04/2020 per report
ECHO 08/25/23: EF 50-55%, hypokinesis of inferolateral wall and apical andre, enlarged RV size with reduced RV systolic function, severely dilated LA, mild MR, mild AR, mild TR, PAP 55 to 60 mmHg, normal pericardium without effusion, aortic root and
ascending aorta dilatation
Plan:
-presented with syncope secondary to sustained VT/VF
-trop peaked at 0.426. no CP
-underwent cath 08/23 resulting in OM1 PCI. s/p return to clinical lab clerk 08/25 for SVG PCI x2 complicated by type 3 coronary perforation s/p 3 overlapping covered stents
-serial echoes post cath 08/25 and 08/26 with stable trivial pericardial effusion
-s/p attempted device upgrade however with occlusion of L subclavian/innominate with collateralization past obstruction
-plan for lifevest placement this afternoon as bridge to extraction and reimplantation. arranged for OP evaluation with Dr. Cabrera 09/10 to discuss extraction
-in SR/av paced rhythm with PVCs upon review of tele overnight
-AAD therapy was discussed however as patient was revascularized and with lung disease, amiodarone felt to not be ideal option for patient
-continue asa, plavix, statin, coreg, cardura
-OP cardiac follow up with DCA also arranged
-ok for DC to home tonight
-d/w nursing, hospitalist. d/w patient and at bedside
Progress Note - Opener
Subjective
Date of Service: August 28, 2023
Feeling well. No complaints overnight
Objective
Labs:
08/28/23 04:48
08/28/23 04:48
Labs
Hgb 10.7 g/dL (13.0-18.0) L 08/28/23 04:48
Hct 31.7 % (39.0-52.0) L 08/28/23 04:48
Plt Count 196 10^3/uL (130-400) 08/28/23 04:48
APTT 135.0 Sec (23.4-35.0) H 08/24/23 12:02
Sodium 136 mmol/L (135-145) 08/28/23 04:48
Potassium 3.9 mmol/L (3.5-5.1) 08/28/23 04:48
BUN 23 mg/dl (9-20) H 08/28/23 04:48
Creatinine 0.5 mg/dL (0.7-1.3) L 08/28/23 04:48
Glucose 101 mg/dl (70-99) H 08/28/23 04:48
Vital Signs and I&O:
Vital Signs
Temp Pulse Resp BP Pulse Ox
98.7 F 62 16 105/66 95
08/28/23 10:57 08/28/23 11:00 08/28/23 10:57 08/28/23 10:59 08/28/23 11:43
Vital Signs
Temp Pulse Resp BP Pulse Ox
98.7 F 62 16 105/66 95
08/28/23 10:57 08/28/23 11:00 08/28/23 10:57 08/28/23 10:59 08/28/23 11:43
Intake & Output
08/26/23 08/27/23 08/28/23 08/29/23
07:59 07:59 07:59 07:59
Intake Total 480 / 480 100 / 100 990 / 990 180 / 180
Output Total 960 / 1005 585 / 585
Balance 480 / 480 -860 / -905 405 / 405 180 / 180
Physical Exam
Physical Exam
GEN: No distress, awake, alert, oriented x3. sitting in chair
HEENT: supple, anicteric, mmm, eomi
LUNGS: Few crackles at B/L bases
CV: Reg, S1/S2, no murmur
ABD: soft, BS+, NT/ND
EXT: No cyanosis, clubbing, edema
NEURO: Gross non-focal
SKIN: Warm, pink, dry. No rash. Sternotomy scar
[2023-08-28 15:07] VITALS: BP 121/53
--- NOTE | 2023-08-28 17:12 | W.DCSUMMARY ---
Discharge Summary
Discharge Data
Date of Admission: 08/23/23
Date of Discharge: 08/28/23
-
Pending Results: No
Hospital Course
Primary care physician : Tito Villatoro
Principal Discharge diagnosis : Cardiogenic syncope due to sustained ventricular tachycardia/ventricular fibrillation on device interrogation
Chronic Discharge diagnosis : Essential hypertension, hyperlipidemia, coronary artery disease status post CABG, right carotid endarterectomy for carotid stenosis, chronic pulmonary fibrosis
Hospital Course : Patient is an 82-year-old male who came in after syncopal episode the morning of admission. He was sitting at the kitchen counter eating breakfast when he suddenly slumped over and lost consciousness. He then had a few episodes
of vomiting. He had dizziness immediately following the episode which self resolved. He reported a productive cough over the past few weeks with yellow sputum. Prior to his syncopal episode there was no prodrome such as chest pain, shortness of
breath, back pain, headache, fevers, chills. He does take a baby aspirin. Patient was admitted.
Problem #1: Cardiogenic syncope due to sustained ventricular tachycardia/ventricular fibrillation on device interrogation. Patient had sick sinus syndrome and had a pacemaker placed in 2020. He did have amiodarone treatment and was placed on IV
heparin drip. Echocardiogram was obtained this admission which showed an ejection fraction of 50 to 55% and no regional wall motion abnormalities but had a pericardial effusion. Follow-up echo the next day did not show a significant pericardial
effusion but more trivial, follow-up again the day after that showed a small pericardial effusion which was stable. Patient was seen in consultation by cardiology and underwent cardiac catheterization on 08/24/2023. That resulted in successful PCI
with a 60 to 70% saphenous vein graft lesion proximal to the mid vessels as noted below. He was continued on aspirin and Plavix, Coreg and Lipitor. Based on his device interrogation, ICD was to be placed however, patient had an obstruction at the
left subclavian and innominate artery with collateralization past the obstruction. Therefore, patient is being fitted for a LifeVest to prevent sudden cardiac while decision is made to upgrade the ICD in the near future. This likely will be
extraction and reimplantation. He will follow-up as an outpatient to discuss timing.
Problem #2: All other medical issues. These include Essential hypertension, hyperlipidemia, coronary artery disease status post CABG, right carotid endarterectomy for carotid stenosis, chronic pulmonary fibrosis. These medical issues were stable
during his hospitalization. Medications were continued as able.
Once patient receives his LifeVest tonight he will be stable for discharge home. If there are any questions regarding this dictation or his hospital stay, please not hesitate to call. Our office number is [phone].
Time for discharge 31 minutes.
Procedure findings :
CARDIAC CATHETERIZATION CONCLUSION:
1. Successful percutaneous coronary artery intervention of sequential 60 to 70% saphenous vein graft lesions proximal into mid vessel with 2 overlapping 4.0 x 28 mm Xience sonia point drug-eluting stents complicated by type III coronary perforation
status post 3 overlapping 4.5 x 26 mm, 4.0 x 26 mm and 5.0 x 26 mm papyrus covered stents with excellent final angiographic result and KADEN-3 flow.
2. Normal LVEDP
08/23 CARDIAC CATHETERIZATION CONCLUSION:
1. Successful stenting of obtuse marginal branch with a 3.5 x 34 mm Huntington stent
2. Residual coronary disease and sequential [id number]-[id number]-[id number]-sided PLB
3. Severe [place] vessel coronary artery disease with 100% occlusion of the LAD and RCA
Discharge Plan
-
Patient Disposition: Home (Routine Discharge)
Discharge Diagnosis/Procedures: Cardiogenic syncope due to sustained ventricular tachycardia/ventricular fibrillation on device interrogation; Angioplasty and stent to Obtuse Marginal artery (08/23), angioplasty and stent x5 to Vein Graft-PDA
(08/25)--Essential Hypertension, Hyperlipidemia, chronic pulmonary fibrosis
Condition: Fair
Diet: Low Fat, Low Cholesterol and Low Sodium
Activity: As tolerated
Driving Restrictions: Not until seen by your Dr
Bathing Restrictions: None
Other Services: Cardiac Rehab
Stand Alone Forms: DC Instructions- Cath/EP Lab
Referrals:
[facility] [Outside] - 09/15/23 1:00 pm
(Cardiac Rehab Orientation appointment is on 09/15/23 () at 1:00 pm
The Cardiac Rehab gym is located on the first floor of the [facility].)
Pilar Narvaez CRNP [Specified Professional Personl] - 10/01/23 4:00 pm (You have a cardiology follow-up appointment at the [facility] with Dr. Merchant's nurse practitioner, Pilar. Please call with questions)
Landon Cabrera MD [Active] - 09/11/23 10:20 am (appointment to discuss extraction)
Tito Villatoro MD [Family Provider] - in less than 1 week
Prescriptions:
New
clopidogrel 75 mg Tablet
75 mg PO DAILY Qty: 30 0RF
acetaminophen 325 mg Tablet
650 mg PO QIDPRN PRN (Reason: mild pain) Qty: 0 0RF
doxazosin 1 mg Tablet
1 mg PO HS Qty: 0 0RF
cholecalciferol (vitamin D3) 25 mcg (1,000 unit) Tablet
25 mcg PO DAILY Qty: 0 0RF
Continued
Soy Isoflavones 100 MG capsule
100 mg PO DAILY
esomeprazole magnesium [Nexium] 20 MG capsule,delayed release(DR/EC)
20 mg PO Q48H@0800
atorvastatin 40 MG tablet
40 mg PO QPM
allopurinol 100 MG tablet
100 mg PO DAILY
aspirin 81 MG tablet,delayed release (DR/EC)
81 mg PO DAILY Qty: 90 0RF
carvedilol [Coreg] 3.125 MG tablet
3.125 mg PO BID Qty: 180 3RF
chlorpheniramine maleate 4 mg Tablet
4 mg PO HSPRN PRN (Reason: phlegm)
folic acid 400 mcg Tablet
0.4 mg PO DAILY
garlic 500 mg Capsule
500 mg PO DAILY
cyanocobalamin (vitamin B-12) 500 mcg Tablet
500 mcg PO BID
psyllium Powder
1 tsp PO DAILY@1100
cholecalciferol (vitamin D3) 25 mcg (1,000 unit) Tablet
25 mcg PO DAILY
omega 5-rnm-glf-fish oil [Fish Oil] 1,000 mg (120 mg-180 mg) Capsule
1 cap PO DAILY
Lung Tonic Supplement 200 mg capsule
200 mg PO DAILY
Discontinued
doxazosin 1 mg Tablet
1 mg PO QPM
acetaminophen [Tylenol 8 Hour] 650 mg Tablet Extended Release
650 mg PO HSPRN PRN (Reason: mild pain)
esomeprazole magnesium [Nexium] 20 mg Capsule,Delayed Release(Dr/Ec)
40 mg PO Q48H@0800
Discharge Orders:
Discharge Patient (As Directed); Ordered 08/28/23
Ordered By: Nuvia Motta
Care Plan Goals
Care Plan Goals:
Problem: Readiness for enhanced knowledge related to diagnosis and treatment plan
Goal: Understand your diagnosis and treatment plan needs, including medications if applicable.
Instructions: Know your diagnosis, underlying causes and treatment plan options, including medications if applicable. Consult with your health care team to learn about your diagnosis and treatment plan, including medications if applicable.
Discharge Date and Time
Print Language: SPANISH
--- NOTE | 2023-08-28 18:28 | PTCARENOTE ---
Pt seen by and AUGUSTINE Mendoza. Pt fitted with lifevest, he states understanding of how to use it. Discharge instructions reviewed with pt and his regarding medications and their possible side effects, wound care, activity and
driving restrictions, reporting cares and concerns and
follow up appt's. Very good understanding verbalized. Telemetry and IV device removed, Lifevest on pt. Pt escorted out via wheelchair and discharged to home.
== END 2023-08-28 18:20 | disposition home or self-care (01) | DRG 321 ==
LOC: IVU 13:37
PROVIDERS: Internal Medicine; Internal Medicine Interventional Cardiology; ADMITTING PHYSICIAN Internal Medicine; ATTENDING PHYSICIAN Internal Medicine; CONSULT PHYSICIAN Internal Medicine Cardiovascular Disease; EMERGENCY PHYSICIAN Emergency Medicine; FAMILY PHYSICIAN Internal Medicine
PROC: 4B02XSZ Measurement of Cardiac Pacemaker, External Approach (ICD-10-PCS; 2023-08-23)
PROC: B2111ZZ Fluoroscopy of Multiple Coronary Arteries using Low Osmolar Contrast (ICD-10-PCS; 2023-08-24)
PROC: 4A023N7 Measurement of Cardiac Sampling and Pressure, Left Heart, Percutaneous Approach (ICD-10-PCS; 2023-08-24)
PROC: B2131ZZ Fluoroscopy of Multiple Coronary Artery Bypass Grafts using Low Osmolar Contrast (ICD-10-PCS; 2023-08-24)
PROC: B2181ZZ Fluoroscopy of Left Internal Mammary Bypass Graft using Low Osmolar Contrast (ICD-10-PCS; 2023-08-24)
PROC: B2151ZZ Fluoroscopy of Left Heart using Low Osmolar Contrast (ICD-10-PCS; 2023-08-26)
PROC: 027037Z Dilation of Coronary Artery, One Artery with Four or More Drug-eluting Intraluminal Devices, Percutaneous Approach (ICD-10-PCS; 2023-08-26)
DX: I47.20 Ventricular tachycardia, unspecified (principal); I21.4 Non-ST elevation (NSTEMI) myocardial infarction; I25.42 Coronary artery dissection; I31.39 Other pericardial effusion (noninflammatory); T82.855A Stenosis of coronary artery stent, initial encounter; I97.51 Accidental puncture and laceration of a circulatory system organ or structure during a circulatory system procedure; I82.B12 Acute embolism and thrombosis of left subclavian vein; I25.10 Atherosclerotic heart disease of native coronary artery without angina pectoris; K21.9 Gastro-esophageal reflux disease without esophagitis; I10 Essential (primary) hypertension; J84.10 Pulmonary fibrosis, unspecified; E66.9 Obesity, unspecified; I49.01 Ventricular fibrillation; E78.2 Mixed hyperlipidemia; I25.82 Chronic total occlusion of coronary artery; I77.810 Thoracic aortic ectasia; Y83.1 Surgical operation with implant of artificial internal device as the cause of abnormal reaction of the patient, or of later complication, without mention of misadventure at the time of the procedure; Y84.0 Cardiac catheterization as the cause of abnormal reaction of the patient, or of later complication, without mention of misadventure at the time of the procedure; Z68.31 Body mass index [BMI] 31.0-31.9, adult; Z79.02 Long term (current) use of antithrombotics/antiplatelets; Z79.82 Long term (current) use of aspirin; Z79.899 Other long term (current) drug therapy; Z85.46 Personal history of malignant neoplasm of prostate; Z86.73 Personal history of transient ischemic attack (TIA), and cerebral infarction without residual deficits; Z95.0 Presence of cardiac pacemaker; Z95.1 Presence of aortocoronary bypass graft; Z95.5 Presence of coronary angioplasty implant and graft
CPT/HCPCS: 93308; 33263; 36005; 71046; 75820; 80048; 80053; 80061; 82962; 83036; 83735; 84484; 85025; 85027; 85347; 85730; 87070; 93005; 93306; 93321; 93325; 93459; 96360; 99285; C1725; C1760; C1769; C1874; C1884; C1887; C1892; C1894; C9600; C9604; Q9950; Q9967

== ENCOUNTER 2023-09-22 10:45 | Inpatient (IN) | payer MEDICARE, SELFPAY ==
[2023-09-22 11:07] VITALS: BP 129/84
[2023-09-22 11:11] VITALS: BP 129/84
--- NOTE | 2023-09-22 13:08 | PTCARENOTE ---
Pt received as direct admit from home. AAOx3. A-paced on lamp tester and inspector. HRs 60-70. SaO2 96% on room air. Pt has LifeVest at bedside. Assessment documented. PIV placed in L FA. Awaiting admit orders. Pt in bed with at bedside, call gale within
reach.
--- NOTE | 2023-09-22 14:29 | CM ---
Chart reviewed. Patient is independent of ADLS, lives with his in a 2 [address], 1st floor set up, 1 DRE, ambulates with a SPC. Plan is for the patient to return home. CM to follow
--- NOTE | 2023-09-22 14:42 | HPS.HSE ---
Family Physician
-
Family Physician: NOT KNOW UNKNOWN - PT DOES
Chief Complaint
-
Ventricular tachycardia requiring AICD placement
History of Present Illness
Patient is a 82 years old male with recent admission for cardiogenic syncope and sustained VT/V-fib found on device interrogation, non-STEMI with peak troponin of 0.4 with urgent cardiac cath s/p OM1 PCI 08/24/23 with residual SVG-PDA disease,
planned for staged intervention. Patient with prior history of sick sinus syndrome status post pacemaker placement in 2020. Patient had attempted device upgrade, however with occlusion of the left subclavian/innominate artery with authorization
past obstruction. He was discharged home on LifeVest and being admitted today for attempt of device upgrade, if failed for placement of new AICD.
Medical History
Past Medical History
Past Medical History: Reports Arrhythmia, CAD, Hypercholesterolemia and Other (Pulmonary fibrosis, mild)
Past Surgical History: Reports Other (Cardiac PCI)
Social History
Tobacco: Non-smoker
Drug: None
Personal:
Living: With Family
Family History
Family History: Not pertinent
Allergies / Home Medications
Allergies reflects when Allergies were last updated in [email or web address].
Home Medications with original date entered in [email or web address]
Allergy/Medication List:
Allergies
Allergy/AdvReac Type Severity Reaction Status Date / Time
No Known Allergies Allergy Verified 08/23/23 09:09
Home Medications
soy isoflavone 100 mg capsule (Soy Isoflavones) 100 mg PO DAILY Supplement 07/23/11
esomeprazole magnesium 20 mg capsule,delayed release (Nexium) 20 mg PO Q48H@0800 Gastrointestinal issue 12/07/18
allopurinol 100 mg tablet 100 mg PO DAILY Gout 05/02/20
atorvastatin 40 mg tablet 40 mg PO QPM High cholesterol 05/02/20
aspirin 81 mg tablet,delayed release 81 mg PO DAILY Blood clot prevention/tx #90 tabs 05/08/20
carvedilol 3.125 mg tablet (Coreg) 3.125 mg PO BID #180 tabs 05/08/20
Lung Tonic Supplement 200 mg PO DAILY Supplement 08/23/23
chlorpheniramine maleate 4 mg tablet 4 mg PO HSPRN PRN phlegm 08/23/23
cholecalciferol (vitamin D3) 25 mcg (1,000 unit) tablet 25 mcg PO DAILY Supplement 08/23/23
cyanocobalamin (vitamin B-12) 500 mcg tablet 500 mcg PO BID Supplement 08/23/23
folic acid 400 mcg tablet 0.4 mg PO DAILY Supplement 08/23/23
garlic 500 mg capsule 500 mg PO DAILY Supplement 08/23/23
omega 0-mph-bgb-fish oil 1,000 mg (120 mg-180 mg) capsule (Fish Oil) 1 cap PO DAILY Supplement 08/23/23
psyllium 1 tsp PO DAILY@1100 Gastrointestinal Issue 08/23/23
acetaminophen 325 mg tablet 650 mg (2 x 325 mg) PO QIDPRN PRN mild pain #0 tabs 08/28/23
cholecalciferol (vitamin D3) 25 mcg (1,000 unit) tablet 25 mcg PO DAILY Blood clot prevention/tx #0 tabs 08/28/23
clopidogrel 75 mg tablet 75 mg PO DAILY Blood clot prevention/tx #30 tabs 08/28/23
doxazosin 1 mg tablet 1 mg PO HS Blood pressure #0 tabs 08/28/23
Review of Systems
-
A 12 point ROS was completed and negative except as noted: Yes
Physical Exam
Vital Signs
Vital Signs
Temp Pulse Resp BP Pulse Ox
97.5 F 76 20 129/84 96
09/22/23 11:11 09/22/23 11:11 09/22/23 11:11 09/22/23 11:11 09/22/23 11:11
Physical Exam
General: Well Developed, Well Nourished and No Apparent Distress
HEENT: NormoCephalic, Moist mucous membranes and Atraumatic
Respiratory: Clear
Cardiac: S1/S2 and Regular Rhythm; No Murmur or Rub
GI: Soft, Non Tender, Non Distended and Normal Bowel Sounds; No Organomegaly
Rectal: Deferred by Provider
Musculoskeletal: No Clubbing, No Cyanosis and No Edema
Skin: No Rash
Neuro: Nonfocal/grossly intact
Impression/Plan
-
IMPRESSION:
Being admitted for AICD placement.
Conditions prior to admission:
Recent hospitalization with cardiogenic syncope and with sustained ventricular tachycardia/V-fib.
CAD
Non-Q wave ME status post PCI 08/24/2023
Sick sinus syndrome status post pacemaker 2020
PAD, status post right CEA 2020
Essential hypertension
Dyslipidemia
Chronic pulmonary fibrosis, mild, not on home oxygen.
PLAN:
Sustained VT/V-fib.
Status post attempted device upgrade complicated with occlusion of the left subclavian/innominate with collateralization past obstruction.
Been admitted for attempt of PPM upgrade to AICD, he failed new device placement
On LifeVest prior to presentation.
CAD
Recent non-Q wave ME
Status post cath 08/23 resulting in OM1 PCI. s/p return to field laboratory operator 08/25 for SVG PCI x2 complicated by type 3 coronary perforation s/p 3 overlapping covered stents
ECHO 08/25/23: EF 50-55%, hypokinesis of inferolateral wall and apical andre, enlarged RV size with reduced RV systolic function, severely dilated LA, mild MR, mild AR, mild TR, PAP 55 to 60 mmHg, normal pericardium without effusion, aortic root and
ascending aorta dilatation
Continue preadmission regimen including Coreg, aspirin, statin
Hold Plavix in anticipation of procedure.
Continue doxazosin.
Pulmonary fibrosis
Most recent echocardiogram noted with enlarged RV size with reduced RV systolic function and pulmonary hypertension.
Respiratory status stable.
Patient is not on supplemental oxygen at home.
Monitor closely.
Full code.
DVT prophylaxis heparin
[2023-09-22] MEDS: ASPIR LOW (ENTERIC COATED) PO (14:47)
[2023-09-22 15:19] VITALS: BP 113/63
[2023-09-22] MEDS: LIPITOR 40 MG PO (17:07)
[2023-09-22 18:22] VITALS: BP 136/89
[2023-09-22] MEDS: HEPARIN 5000 UNITS SC (21:01)
[2023-09-22] MEDS: COREG 3.125 MG PO (21:01)
[2023-09-22] MEDS: CARDURA 1 MG PO (21:01)
[2023-09-22 22:42] VITALS: BP 122/65
--- NOTE | 2023-09-23 02:56 | PTCARENOTE ---
Pt AAOx3 w/no c/o CP or SOB; Pt's VS stable w/HR 60, BP at 2300 122/65. Pt is A-paced w/occas AV-pacing on telemetry monitoring. Shaved & prepped pt's chest bilaterally for L chest ICD upgrade vs poss implantation of new ICD device on R side of
chest. Pt w/call gale within reach & plan of care ongoing.
[2023-09-23 04:37] VITALS: BP 119/75
[2023-09-23 06:51] VITALS: BP 95/56
[2023-09-23] MEDS: ZYLOPRIM 100 MG PO (07:30)
[2023-09-23] MEDS: HEPARIN 5000 UNITS SC (07:30)
[2023-09-23] MEDS: ASPIR LOW (ENTERIC COATED) 81 MG PO (07:30)
[2023-09-23] MEDS: COREG 3.125 MG PO ×2 (07:31→21:33)
[2023-09-23 07:32] VITALS: BP 107/65
--- NOTE | 2023-09-23 10:06 | PTCARENOTE ---
Assumed care of pt at 0645. AAOx3. A-paced on playground monitor. HRs 60s. VSS. Pt remains NPO for PPM upgrade to ICD/new AICD placement with Dr. Cabrera today. Assessment documented. Pt in bed, call gale within reach.
[2023-09-23 11:02] VITALS: BP 117/69
--- NOTE | 2023-09-23 11:26 | CM ---
Chart reviewed. Patient is independent ADLS, ambulates with a SPC, lives in a 2 [facility], 1st floor set up, [facility]. Plan is for the patient to return home. CM to follow
[2023-09-23] MEDS: TRANSDERM-SCOP 1 PATCH TRANSDERM (12:43)
--- NOTE | 2023-09-23 13:28 | PTCARENOTE ---
Assessment unchanged. Pt remains NPO for lead extraction and PPM upgrade to ICD.
--- NOTE | 2023-09-23 16:00 | W.PN.HOSP.TC ---
Today's Communication/Plan
-
For device revision/replacement today.
Assessment / Plan
Assessment / Plan
IMPRESSION:
Being admitted for AICD placement.
Conditions prior to admission:
Recent hospitalization with cardiogenic syncope and with sustained ventricular tachycardia/V-fib.
CAD
Non-Q wave DC status post PCI 08/24/2023
Sick sinus syndrome status post pacemaker 2020
PAD, status post right CEA 2020
Essential hypertension
Dyslipidemia
Chronic pulmonary fibrosis, mild, not on home oxygen.
PLAN:
Sustained VT/V-fib.
Status post attempted device upgrade complicated with occlusion of the left subclavian/innominate with collateralization past obstruction.
Been admitted for attempt of PPM upgrade to AICD, he failed new device placement
On LifeVest prior to presentation.
CAD
Recent non-Q wave DC
Status post cath 08/23 resulting in OM1 PCI. s/p return to lab instructor 08/25 for SVG PCI x2 complicated by type 3 coronary perforation s/p 3 overlapping covered stents
ECHO 08/25/23: EF 50-55%, hypokinesis of inferolateral wall and apical andre, enlarged RV size with reduced RV systolic function, severely dilated LA, mild MR, mild AR, mild TR, PAP 55 to 60 mmHg, normal pericardium without effusion, aortic root and
ascending aorta dilatation
Continue preadmission regimen including Coreg, aspirin, statin
Hold Plavix in anticipation of procedure.
Continue doxazosin.
Pulmonary fibrosis
Most recent echocardiogram noted with enlarged RV size with reduced RV systolic function and pulmonary hypertension.
Respiratory status stable.
Patient is not on supplemental oxygen at home.
Monitor closely.
Full code.
DVT prophylaxis heparin
Anticipated Discharge: 24 - 48 hours
Subjective/Interval History
-
Date of Service: September 23, 2023
Objective Data
-
Vital Signs:
Vital Signs
Temp Pulse Resp BP Pulse Ox
98.4 F 66 20 117/69 93
09/23/23 11:02 09/23/23 11:30 09/23/23 11:02 09/23/23 11:02 09/23/23 11:02
I&O
09/22/23 09/23/23 09/24/23
06:59 06:59 06:59
Intake Total 720 / 720
Balance 720 / 720
Physical Exam
-
General: Well Developed, Well Nourished and No Apparent Distress
HEENT: Normocephalic and Atraumatic
Respiratory: Crackles (at bases)
Cardiac: Regular Rhythm and S1/S2; Negative Murmur
GI: Soft, Nontender, Nondistended and Normal Bowel Sounds
Musculoskeletal: No Clubbing, No Cyanosis and No Edema
Skin: Warm
Neuro: Awake
--- NOTE | 2023-09-23 17:00 | W.PN.CD ---
Today's Communication / Plan
-
-Plan for lead extraction and upgrade to ICD placement.
Impression / Plan
-
82-year-old gentleman with history of coronary disease, hypertension, pulmonary fibrosis, CVA, coronary disease status post CABG, presented with syncope with sustained VT/V-fib status post left heart cath with PCI to OM and subsequent PCI to SVG to
RPDA that got complicated by coronary perforation requiring multiple covered stents, was recommended an ICD upgrade. Patient venogram shows occluded subclavian vein and pacemaker could not be upgraded to ICD. Patient was discharged home on
LifeVest with plan for lead extraction and ICD implantation.
Cardiac arrest
-Presented with syncope with VT and VF consistent with cardiac arrest
-Left heart cath shows stable coronary disease with PCI done to OM and SVG to RPDA likely not responsible for the VT.
-LifeVest placed.
-Plan for ICD upgrade.
-Not a candidate for amiodarone given patient's lung disease
Sick sinus syndrome status post dual-chamber pacemaker
-Medtronic dual-chamber pacemaker was initially implanted in April 2020
-Plan for RV lead upgrade to ICD.
-Patient is not pacemaker dependent.
Hypertension
-Stable. With ongoing plan for lead extraction, we may have to hold Coreg today. Restart postop.
-Continue aspirin. Will hold Plavix single dose today.
-Patient already have received subcu heparin last night and this morning.
-With lead extraction done, we will resume aspirin and Plavix and will discontinue heparin.
Coronary disease
-Status post CABG and recent PCI on 08/26/2023 -PCI to SVG complicated by type III coronary perforation requiring 3 overlapping covered stents.
-Stable coronary disease.
-Trivial pericardial effusion.
-On aspirin, Plavix, statin, Coreg, Cardura
Physical Exam
Vital Signs/Labs
Vital Signs
Temp Pulse Resp BP Pulse Ox
98.4 F 66 20 117/69 93
09/23/23 11:02 09/23/23 11:30 09/23/23 11:02 09/23/23 11:02 09/23/23 11:02
Physical Exam
Constitutional: No acute distress and Comfortable
EENT: Anicteric and Moist mucous membranes
Cardiovascular: Rhythm & rate is regular, Pedal edema is absent and JVD pressure is normal
Respiratory: Respiratory effort normal, Lungs clear to auscul. and Wheeze Absent
GI: Soft, Flat, Non tender and Normal bowel sounds
Neuro/Psych: Alert, Oriented and AO x 3
Other: Cath Site and Cardiac Device Site
Data Reviewed
-
Date of Service: September 23, 2023
Medical Decision Making: Reviewed Test Results, Independent Historian Assessment, Test Interpretation and Review of Case with other Provider
EKG: Tracing Personally Visualized and interpreted
Echo: Report Reviewed by me
X-Ray/CT/US/MRI/NUC/PET: Image Personally Visualized and interpreted
Labs: Labs Reviewed by me
Old Records: Reviewed
Critical Care Time (in minutes): 35
--- NOTE | 2023-09-23 17:40 | ITS.CL.ICD ---
[employer] [employer] - ICD
Implantable Cardioverter Defibrillator
Procedure Report:
RV lead extraction and lead revision:
Mr. Jo is an 82 y/o gentleman with history of coronary disease, hypertension, pulmonary fibrosis, CVA, coronary disease status post CABG, presented with syncope with sustained VT/V-fib status post left heart cath with PCI to OM and subsequent
PCI to SVG to RPDA that got complicated by coronary perforation requiring multiple covered stents, was recommended an ICD upgrade.� Patient venogram shows occluded subclavian vein and pacemaker could not be upgraded to ICD.� Patient was discharged
home on LifeVest with plan for lead extraction and ICD implantation.
Indications:
Venous occlusion with need to upgrade pacemaker to an ICD.
Date of the Procedure: 09/23/2023
Pre-Operative Diagnosis: VT/V-fib arrest
Post-Operative Diagnosis: VT/V-fib arrest
Procedure Performed:
����������� RV lead extraction
����������� ICD implantation
Performing Physicians:
Landon Cabrera MD
Anesthesia:
See anesthesia records
Detailed Description of the Procedure:
Written informed consent was obtained from the patient after a full explanation of the risks and benefits of the procedure. The patient was brought to the lab in the fasting state. Prophylactic antibiotics were given prior to the start of the
procedure. Continuous electrocardiographic and hemodynamic monitoring was initiated.
The initial rhythm was normal sinus rhythm.
The PPM was programmed to VVI 50.
General anesthesia with intubation and mechanical conventional ventilation used. Anesthesia staff performed intubation monitored the patient during case. The ventral torso was meticulously prepared with surgical scrub and allowed to dry with no
pooling. Sterile draping was applied to cover the operative field. The image intensifier was draped with a sterile bag and positioned over the patient's chest.
A surgical pause was performed in accordance with hospital regulations.� Anesthesia service provided sedation as reported separately.� Antibiotics administered IV for risk of bacterial colonization.
Venogram:
A 20 ml upper extremity venogram demonstrated open left subclavian vein with good flow into the subclavian vein.
Groin Prep and vascular access:
After infiltration with lidocaine, large bore venous access was established via the right and left femoral veins. An intra-arterial catheter was placed via the left femoral artery for emergency access.
Endovascular balloon inflation prep:
A 6 Fr sheath was placed and the guidewire was placed from the right femoral vein to the right IJ. An endovascular occlusion balloon prep kit was used to place the 12FR sheath on a wire in the groin to advance in emergency.
Pocket Exploration:
After infiltration with lidocaine, an incision was made in the left delto-pectoral groove over the previously implanted device. Using blunt dissection and electrocautery, the incision was carried down to the level of the device, being careful to
maintain adequate hemostasis and not disrupt the previously implanted lead. Fluoroscopy was performed with showed normal appearance of the existing lead during the procedure. The pocket was dry and no obvious sign of infection was noted. The
generator was removed from the pocket. The lead was released from the scar tissue and the fibrotic tissue was removed.
RV pacing lead extraction:
The RV lead was removed from the generator. The RV lead was imaged and was noted to be attached to the RV apex. A stylet was placed that was able to go to the tip of the lead. The lead tip did not move.
It was a passive lead and the manipulation did not dislodge the lead. Attempt was made to unscrew the lead which was unsuccessful with distal tip showing no movement. The lead was clipped approximately 4 cm proximal to the entry site into the vein
using lead cutting scissors.
The inner channel of the lead was sized and an LLD #2 was inserted. Then the Lead Locking Device (LLD) #2 was advanced.� It did stop at the same location but with manipulation was able to advance and was able to reach to the distal tip. The locking
mechanism was engaged and the stylet was fixed in position in the lead. An ETHICON SA8 2 Perma-hand Silk, black braided, 60inch was fixed to the proximal end of the lead to establish additional control.
With traction and counter traction the PPM lead was released from the RV and was successfully pulled out to the right atrium.
The MATEUS and hemodynamics were monitored under flouroscopic views with no change in BP or hemodynamics and RV cavity and the tricuspid valve remained unchanged.
Using the micropuncture needle apparatus, axillary vein was accessed and now the wire was able to go across the occluded section of the subclavian vein. A table wire was placed into the IVC to be used for ICD lead placement.
ICD lead placement:
The 9Fr sheath was able to cross the stenosed venous area. The right ventricular defibrillator lead was advanced into the RV cavity and secured in RV apical septal position with an active fixation technique.
There was excellent sensing, pacing, and impedance from the leads, with no diaphragmatic stimulation at 10 V output.
Bovie cautery, antibiotics, and fluoroscopy were used.
The lead and sheath were withdrawn from the venous system. Hemostasis at the venous entry site was obtained using a 2-0 Vicryl pursestring suture.
The sheath was withdrawn, and the thresholds remained acceptable. The lead was secured in position at the venous entry site with 2-0 Ethibond sutures.
The pocket was adjusted and the prevous capsule was cut to adjust for the placement of larget ICD generator. The electrode terminals were connected to the pulse generator, which was placed into the pocket. The wound was irrigated thoroughly with
antibiotic solution.
A Tyrx pouch was placed around the generator and the leads.
A surgiflo was deposited around the generator given heparin, ASA and Plavix on board.
The wound was closed in 3 layers using 2-0, V loc sutures followed by two layers of 2-0 V Vloc then 4-0 VLoc sutures. Steri-Strips and a bandage were applied externally.
Procedure End:
The procedure was tolerated well. A bandage was applied to the incision area to be removed in a day.
The patient was transferred to the recovery area.
Estimated Blood loss:
10 cc
Specimens Removed:
Old generator and the pacing lead removed.
Urine output:
None
Packs / Drains/ Tubes:
None
Instrument / Sponge Count Correct:
Yes
Complications of the Procedure:
None
Condition of Patient at Time of Transfer:
Hemodynamically stable with no neurological or vascular compromise.
Explanted Device information: (Initially implanted on 05/04/2020)
The existing RV lead was explanted during this procedure on 09/23/2023.
����������� RV lead:� Medtronic; Model: 4074-58; Serial # [id number]� (implanted on 05/04/2020) �
����������� Pacemaker generator: Medtronic [id number]; serial number: [id number]
�����������
Current Implanted Device and the new lead information:
Device information:�
Generator: Medtronic; Model: ANXU1N6; Serial # [id number]�
RA lead:
����������� Medtronic; model: 4574�53; serial number: [id number]
Measured data in the RV lead was sensing of 1.3mV, impedance of 456 ohms and threshold of 0.5 V at 0.4ms�
RV Lead:
����������� Medtronic; model: 6935M-62; serial number: [id number]
Measured data in the RV lead was sensing of 7mV, impedance of 570 ohms and threshold of 0.5V at 0.4ms�
Braxton parameter settings were AAIR <=> DDDR 60-130 bpm. �
����������� Mode Switch: On
����������� Paced AV interval: 180ms
����������� Sensed AV interval: 150 ms.
����������� Rate Adaptive A-V Interval: Off
Output parameters:
����������������������� Amplitude (V)������������� Pulse Width (ms)������� Sensitivity (mV)
����������� RA������������������ 1.5������������������������������ 0.4������������������������������ 0.3������
����������� RV:����� ����������� 3.5������������������ ����������� 0.4������������������ ����������� 0.3
Tachy parameter settings:
����������� SVT discrimination: On
����������� AF/AFl: On
����������� SVT limit: 260 msec
����������� VT zone:
����������������������� Slow VT: 167-188 bpm -ATP then shock
����������������������� fast VT/ VF: >188 bpm� Shock� x6 -ATP while charging
Summary:
Successful extraction of RV lead and implantation of MRI compatible Medtronic implantable defibrillator cardioverter
Results/Recommendations:
-Please follow up CXR�
1. Please provide patient with adequate pain control�
2.� Admit to ICU, follow-up echo in morning.
Instructions to be given to patient:�
- Please follow up with [facility] at [address] [place] [address] ([phone]) to get your wound checked within 14 days of your discharge.
- Do not wet incision site until after it is evaluated at cardiology clinic. No soaking or bath until then. Showers or Sponge baths are OK.�Dab dry the area after a shower.
- Do not lift left elbow above shoulder, particularly with sudden jerking movements, for 1 month�
- Do not lift anything weighing more than 10 pounds with the left arm for 1 month�
- If you notice any fevers, shortness of breath, lightheadedness, chest pain, or worsening swelling in the wound site, please contact the arrhythmia clinic, contact your internet marketer, or present to the hospital for evaluation.�
Landon Cabrera MD [facility]
Electrophysiology
�
[2023-09-23 17:45] VITALS: BP 118/67
--- NOTE | 2023-09-23 17:56 | PTCARENOTE ---
received from tender labor AAOx3. drowsy but easily arousable. NSR on monitor with occasional A pacing spikes noted. VSS. no gtts. Pulses palpable. no edema. L chest wall with pressure dressing applied and arm in sling. Oli groin sites echymottic but no
bleeding and or hematoma present. Pulse ox 97% on 4L. nc. ekg done. laying flat till 2100. will continue to monitor.
[2023-09-23] MEDS: ZOFRAN 4 MG IV (19:24)
[2023-09-23] MEDS: TUMS 1 TABLET PO ×2 (19:57→20:56)
--- NOTE | 2023-09-23 20:00 | PTCARENOTE ---
Patient received in bed , AAOX3. Lying flat. NSR with PVCs on monitor, blood pressure as documented. Lungs diminished, pulse ox 97% on 3L. Abdomen round with hypoactive bowel sounds. Complaints of nausea, prn zofran and tums given. Darling
catheter draining yellow urine. Bilateral groin sites clean dry and intact. Left arm in immobilizer with left chest wall pressure dressing. #16 g in left hand and #22 g in left wrist flushed and patent,
[2023-09-23] MEDS: ANCEF 5 IV (21:34)
[2023-09-23] MEDS: CARDURA 1 MG PO (21:34)
[2023-09-23] MEDS: LIPITOR PO (21:41)
[2023-09-23 22:06] VITALS: BP 133/61
--- NOTE | 2023-09-23 22:22 | PTCARENOTE ---
Right radial [place] and deal catheter discontinued per order
[2023-09-23] MEDS: PROTONIX IV 40 MG IV (22:57)
[2023-09-23] MEDS: NSS (PRESERVATIVE FREE) 10 ML IV (22:57)
[2023-09-23 22:58] LABS: Hematocrit 39.2 % (39.0-52.0); Hemoglobin 13.1 g/dL (13.0-18.0); Mean Corp Hgb Conc. 33.4 g/dL (33.0-37.0); Mean Corpuscular Hgb 31.6 pg (27.0-31.0); Mean Corpuscular Volume 94.7 fL (80.0-94.0); Mean Platelet Volume 9.7 fL (7.4-10.4); Platelet Count 166 10^3/uL (130-400); Red Blood Cell Count 4.14 10^6/uL (4.70-6.10); Red Cell Dist. Width 13.3 % (11.5-14.5); White Blood Cell Count 6.9 10^3/uL (4.8-10.8)
[2023-09-23 23:08] LABS: INR 1.06; PT 13.8 Sec (11.4-14.6)
[2023-09-23 23:09] LABS: APTT 34.1 Sec (23.4-35.0)
--- NOTE | 2023-09-23 23:19 | PTCARENOTE ---
Patient continues with intermittent nausea, did vomit dark colored emesis, CT PA notified, orders received and labs sent.
[2023-09-23 23:20] LABS: Blood Urea Nitrogen 17 mg/dl (9-20); Carbon Dioxide 21 mmol/L (22-30); eGFR > 60.00
[2023-09-23 23:35] LABS: Calcium 9.4 mg/dl (8.4-10.2); Chloride 103 mmol/L (98-107); Glucose 120 mg/dl (70-99); Sodium 137 mmol/L (135-145)
--- NOTE | 2023-09-23 23:36 | W.PN.UPDATE ---
Update Note
Progress Note Update
-pt had several bouts of nausea earlier and vomited coffee-ground emesis tonight. Hemodynamically stable- nsr 72 with PVCs, bp 133/61.
-checked h/h - stable 13.1/39.2 (12.4/36.4 on 09/18/23). Pt is on ASA and Plavix for multiple recent stents placed on 08/26/23. Gave 40 iv Protonix tonight and continue daily.
-per Dr. Aleman, will hold Plavix in am
-of note, K and Mg ok.
[2023-09-24] VITALS: BP 114/70
[2023-09-24] MEDS: TUMS 2 TABLET PO (00:15)
--- NOTE | 2023-09-24 02:44 | PTCARENOTE ---
Patient OOB to chair, bilateral groin dressings unchanged. CAll gale within reach
[2023-09-24 04:00] VITALS: BP 121/69
[2023-09-24 05:02] LABS: Hematocrit 37.1 % (39.0-52.0); Hemoglobin 12.7 g/dL (13.0-18.0); Mean Corp Hgb Conc. 34.2 g/dL (33.0-37.0); Mean Corpuscular Hgb 31.5 pg (27.0-31.0); Mean Corpuscular Volume 92.1 fL (80.0-94.0); Mean Platelet Volume 9.8 fL (7.4-10.4); Platelet Count 168 10^3/uL (130-400); Red Blood Cell Count 4.03 10^6/uL (4.70-6.10); Red Cell Dist. Width 13.4 % (11.5-14.5); White Blood Cell Count 5.7 10^3/uL (4.8-10.8)
[2023-09-24 05:19] LABS: Blood Urea Nitrogen 19 mg/dl (9-20); Calcium 9.8 mg/dl (8.4-10.2); Carbon Dioxide 23 mmol/L (22-30); Chloride 103 mmol/L (98-107); Glucose 111 mg/dl (70-99); Potassium 4.3 mmol/L (3.5-5.1); Sodium 138 mmol/L (135-145); eGFR > 60.00
[2023-09-24] MEDS: ANCEF 5 IV (05:38)
[2023-09-24 08:00] VITALS: BP 126/76
--- NOTE | 2023-09-24 08:05 | W.PN.CD ---
Today's Communication / Plan
-
- ECHO today
- Likely discharge home
Impression / Plan
-
82-year-old gentleman with history of coronary disease, hypertension, pulmonary fibrosis, CVA, coronary disease status post CABG, presented with syncope with sustained VT/V-fib status post left heart cath with PCI to OM and subsequent PCI to SVG to
RPDA that got complicated by coronary perforation requiring multiple covered stents, was recommended an ICD upgrade. Patient venogram shows occluded subclavian vein and pacemaker could not be upgraded to ICD. Patient was discharged home on
LifeVest with plan for lead extraction and ICD implantation.
Cardiac arrest / Lead extraction
-Presented with syncope with VT and VF consistent with cardiac arrest
-Left heart cath shows stable coronary disease with PCI done to OM and SVG to RPDA likely not responsible for the VT.
-s/p PPM lead extraction and ICD placement - Medtronic - 09/23/23
-Subclavian vein occluded was able to open and place ICD lead LifeVest placed.
-Not a candidate for amiodarone given patient's lung disease
-Continue Coreg.
-ECHO today - rule out delayed perforation.
Sick sinus syndrome status post dual-chamber pacemaker
-Medtronic dual-chamber pacemaker was initially implanted in April 2020 - extracted and upgraded to dual chamber ICD on 09/23/23
-Patient is not pacemaker dependent.
Hypertension
-Stable.
-Continue aspirin and Plavix
-resume aspirin and Plavix .
Coronary disease
-Status post CABG and recent PCI on 08/26/2023 -PCI to SVG complicated by type III coronary perforation requiring 3 overlapping covered stents.
-Stable coronary disease.
-Trivial pericardial effusion.
-On aspirin, Plavix, statin, Coreg, Cardura
Physical Exam
Vital Signs/Labs
Vital Signs
Temp Pulse Resp BP Pulse Ox
97.9 F 61 17 121/69 96
09/23/23 23:33 09/24/23 05:00 09/24/23 02:00 09/24/23 04:00 09/24/23 02:00
09/23/23 09/24/23 09/25/23
06:59 06:59 06:59
Actual Weight 81 kg
09/24/23 04:43
09/24/23 04:43
PT 13.8 Sec (11.4-14.6) 09/23/23 22:50
INR 1.06 09/23/23 22:50
APTT 34.1 Sec (23.4-35.0) 09/23/23 22:50
Magnesium 2.0 mg/dl (1.6-2.3) 09/24/23 04:43
Physical Exam
Constitutional: No acute distress and Comfortable
EENT: Anicteric and Moist mucous membranes
Cardiovascular: Rhythm & rate is regular, Pedal edema is absent, JVD pressure is normal and Systolic murmur absent
Respiratory: Respiratory effort normal, Wheeze Absent and Crackles Absent
GI: Soft, Distention absent, Non tender and Normal bowel sounds
Neuro/Psych: Alert, Oriented and AO x 3
Other: Cardiac Device Site (pressure dressing removed)
Data Reviewed
-
Date of Service: September 24, 2023
Medical Decision Making: Reviewed Test Results, Independent Historian Assessment and Test Interpretation
EKG: Tracing Personally Visualized and interpreted
Echo: Report Reviewed by me
Labs: Labs Reviewed by me
Old Records: Reviewed
Critical Care Time (in minutes): 30
[2023-09-24] MEDS: NSS (PRESERVATIVE FREE) 10 ML IV (08:09)
[2023-09-24] MEDS: PROTONIX IV 40 MG IV (08:09)
[2023-09-24] MEDS: COREG 3.125 MG PO (08:09)
[2023-09-24] MEDS: ASPIR LOW (ENTERIC COATED) 81 MG PO (08:09)
[2023-09-24] MEDS: ZYLOPRIM 100 MG PO (08:09)
--- NOTE | 2023-09-24 08:15 | PTCARENOTE ---
Assumed care of patient at 0700. Pt is awake, alert, and oriented. No complaints of pain. Pt remains SR 1st degree AV block, RBBB, HR 60's. BP 126/76 MAP 91. ICD set to DDDR 60-130. Pulse oximetry 91% on room air. Pt with complaints of heartburn and
vomited overnight. No nausea or vomiting this morning, tolerated PO diet. Pt is due to void this morning. Right groin site intact with old drainage. Left groin site CDI. pedal pulses palpable. Left chest wall with pressure dressing in place. Pt now
OOB in chair with call gale within reach.
--- NOTE | 2023-09-24 08:23 | W.PN.ANS.POP ---
Anesthesia Post Operative
- Anesthesia Post Op Note
Vital Signs Stable-See Nursing Note: Yes
Airway Patent: Yes
Adequate Pain Control: Yes
Change in Mental Status: No
Current Postoperative Nausea & Vomiting: No
Anesthesia Complications: No
General Anesthetic Recall: No
Unplanned Admission: No
Post Op Hydration Adequate: Yes
[2023-09-24 12:06] VITALS: BP 133/73
--- NOTE | 2023-09-24 12:15 | PTCARENOTE ---
Pt with no complaints of nausea/vomiting. Pt remains SR with first degree AV block with RBBB, occasionally A-paced. Pulse oximetry 92% on room air. Pressure dressing removed by MD. Left chest wall with Aquacel dressing in place, clean dry and
intact. Bilateral groin sites unchanged. Awaiting ECHO.
[2023-09-24] MEDS: PLAVIX 75 MG PO (12:20)
--- NOTE | 2023-09-24 15:17 | W.DS.TRANS ---
DC Summary - Chemist Physical
-
Discharge Instructions:
Discharge Diagnosis/Procedures RV Lead extraction with new RV lead placement
and ICD upgrade
Driving Restrictions No driving for 1 week
Bathing Restrictions OK to Shower
Instructions:
Stand-Alone Forms: DC Inst - Implanted Device
Changes to Home Medications: No
Discharge Medications:
DC Medications w/original date entered in [employer]
soy isoflavone 100 mg capsule (Soy Isoflavones) 100 mg PO DAILY Supplement 07/23/11
esomeprazole magnesium 20 mg capsule,delayed release (Nexium) 20 mg PO Q48H@0800 Gastrointestinal issue 12/07/18
allopurinol 100 mg tablet 100 mg PO DAILY Gout 05/02/20
atorvastatin 40 mg tablet 40 mg PO QPM High cholesterol 05/02/20
aspirin 81 mg tablet,delayed release 81 mg PO DAILY Blood clot prevention/tx #90 tabs 05/08/20
carvedilol 3.125 mg tablet (Coreg) 3.125 mg PO BID #180 tabs 05/08/20
Lung Tonic Supplement 200 mg PO DAILY Supplement 08/23/23
chlorpheniramine maleate 4 mg tablet 4 mg PO HSPRN PRN phlegm 08/23/23
cholecalciferol (vitamin D3) 25 mcg (1,000 unit) tablet 25 mcg PO DAILY Supplement 08/23/23
cyanocobalamin (vitamin B-12) 500 mcg tablet 500 mcg PO BID Supplement 08/23/23
folic acid 400 mcg tablet 0.4 mg PO DAILY Supplement 08/23/23
garlic 500 mg capsule 500 mg PO DAILY Supplement 08/23/23
omega 1-bhq-qsb-fish oil 1,000 mg (120 mg-180 mg) capsule (Fish Oil) 1 cap PO DAILY Supplement 08/23/23
psyllium 1 tsp PO DAILY@1100 Gastrointestinal Issue 08/23/23
acetaminophen 325 mg tablet 650 mg (2 x 325 mg) PO QIDPRN PRN mild pain #0 tabs 08/28/23
cholecalciferol (vitamin D3) 25 mcg (1,000 unit) tablet 25 mcg PO DAILY Blood clot prevention/tx #0 tabs 08/28/23
clopidogrel 75 mg tablet 75 mg PO DAILY Blood clot prevention/tx #30 tabs 08/28/23
doxazosin 1 mg tablet 1 mg PO HS Blood pressure #0 tabs 08/28/23
Home Medication Changes
Pending Results: No
[2023-09-24 15:29] VITALS: BP 141/65
--- NOTE | 2023-09-24 15:53 | PTCARENOTE ---
Echo completed at bedside. Discharge order obtained. Pt stable. Discharge instructions reviewed with pt and pt's . Questions addressed. Pt remains SR with first degree AV block and RBBB, occasionally A paced. Pulse oximetry 92% on room air.
Groin sites unchanged. Tele monitor and peripheral IV's removed.
== END 2023-09-24 16:26 | disposition home or self-care (01) | DRG 277 ==
LOC: CVICU 10:45
PROVIDERS: Nurse Practitioner; Physician Assistant Medical; ADMITTING PHYSICIAN Internal Medicine Cardiovascular Disease; ATTENDING PHYSICIAN Internal Medicine
PROC: 0JPT0PZ Removal of Cardiac Rhythm Related Device from Trunk Subcutaneous Tissue and Fascia, Open Approach (ICD-10-PCS; 2023-09-23)
PROC: 0JH608Z Insertion of Defibrillator Generator into Chest Subcutaneous Tissue and Fascia, Open Approach (ICD-10-PCS; 2023-09-23)
PROC: 02PA3MZ Removal of Cardiac Lead from Heart, Percutaneous Approach (ICD-10-PCS; 2023-09-23)
PROC: 02HK3KZ Insertion of Defibrillator Lead into Right Ventricle, Percutaneous Approach (ICD-10-PCS; 2023-09-23)
DX: I47.20 Ventricular tachycardia, unspecified (principal); I82.B12 Acute embolism and thrombosis of left subclavian vein; K92.0 Hematemesis; I49.01 Ventricular fibrillation; I25.10 Atherosclerotic heart disease of native coronary artery without angina pectoris; E78.00 Pure hypercholesterolemia, unspecified; J84.10 Pulmonary fibrosis, unspecified; I49.5 Sick sinus syndrome; I73.9 Peripheral vascular disease, unspecified; I10 Essential (primary) hypertension; I27.20 Pulmonary hypertension, unspecified; I25.2 Old myocardial infarction; Z79.82 Long term (current) use of aspirin; Z79.899 Other long term (current) drug therapy; Z95.810 Presence of automatic (implantable) cardiac defibrillator; Z98.61 Coronary angioplasty status; Z95.1 Presence of aortocoronary bypass graft; Z86.74 Personal history of sudden cardiac arrest
CPT/HCPCS: 93308; 33233; 33235; 33249; 71045; 76937; 80048; 83735; 85027; 85610; 85730; 86850; 86900; 86901; 86920; 93005; C1721; C1777; C1892; C1894

== ENCOUNTER 2023-11-11 10:48 | Outpatient (RCR) | payer MEDICARE, SELFPAY | END 2023-11-11 23:59 | disposition home or self-care (01) | LOC: CRHB 10:48 | PROVIDERS: ATTENDING PHYSICIAN Internal Medicine Cardiovascular Disease; FAMILY PHYSICIAN Internal Medicine | DX: I25.10 Atherosclerotic heart disease of native coronary artery without angina pectoris (principal); Z95.5 Presence of coronary angioplasty implant and graft | CPT/HCPCS: G0422; G0423 ==

== ENCOUNTER 2023-11-11 11:00 | Emergency (ER) | payer MEDICARE, SELFPAY ==
[2023-11-11 11:13] VITALS: BP 143/75
--- NOTE | 2023-11-11 11:19 | ED.GENMED ---
History of Present Illness
General
Chief Complaint: Fall
Source: patient
Exam Limitations: none
Time Seen by Provider: 11/11/23 11:16
Nursing documentation reviewed up to this point in time: agreed with
History of Present Illness
History of Present Illness:
This is a 82 y/o male with a PMH of coronary artery disease, history of stroke, prostate cancer, A-fib pacemaker in place presenting emergency department today with concerns of a fall. Patient presents with his who witnessed the fall. Patient
states he is currently undergoing cardiac rehab as an outpatient. Patient states that he was leaving cardiac rehab today and was trying to get into the car when he missed his step and fell onto his right side. He now complains of right hip pain
and right groin pain with ambulation. Patient said he previously had right knee and shoulder pain but has since subsided. Patient states that he is able to walk without difficulty. Patient states that he went to stop by the ER for evaluation.
Patient denies chest pain or shortness of breath. Patient denies any dizziness prior to the fall, any lightheadedness. Patient does have a pacemaker in place. Patient takes aspirin. witnessed fall and states that he did not hit his head.
Patient personally denies any headache, any scalp laceration, any eye pain or visual changes, any neck pain. Patient has any upper extremity paresthesias.
Past History
Past History
ED Past Medical History: CAD, Cancer (Prostate CA with radiation), GERD, HTN, Hypercholesterolemia and Other (Pulmonary fibrosis)
ED Past Surgical History: Appendectomy (Questionable patient was unsure), Cardiac (CABG, Stent) and Other (Hernia repair)
Social History
Tobacco: Non-smoker
Alcohol: Occasional
Drug: None
Personal:
Living: with family
Employment: Retired
Family History
Family History: Negative Diabetes, Hypertension, Early CAD, Asthma or Cancer
Review of Systems
Review of Systems
All Other Systems: ROS reviewed and negative except as documented in HPI and ROS
Phy Exam
Physical Exam
Physical Exam:
General: Patient is well appearing and in no acute distress; non-toxic
Skin: Warm and dry, no rashes or lesions
Head: Normocephalic, atraumatic
Eyes: Sclera non-icteric. EOMs intact. PERRLA.
Cardiac: Regular rate
Peripheral Vascular: No lower extremity swelling or edema. 2+ dorsalis pedis and posterior tibial pulses bilaterally.
Pulm: Normal respiratory effort
Abdomen: No abdominal tenderness to palpation.
Musculoskeletal: 5/5 strength in bilateral upper and lower extremities. No hip pain with straight leg raise. Mild pain in right hip and groin with passive range of motion of right hip.
Neuro: CN II-XII intact, no focal neurologic deficits.
Psychiatric: Appropriate mood and affect.
Course
Orders/Labs/Results
Orders:
Orders
11/11/23 11:30
pacemaker [Interrogate Pacemaker- Treatment] ONCE
CR Hip - RT w/wo Pel 2-3 Vw* Urgent
Comment:
Reason For Exam: right hip and groin pain following fall
Include a pelvis x-ray?: Yes
Vital Signs
Initial and Last Documented VS:
Initial Vital Signs
Temp Pulse Resp BP Pulse Ox
97.8 F 60 18 143/75 96
11/11/23 11:13 11/11/23 11:13 11/11/23 11:13 11/11/23 11:13 11/11/23 11:13
Last Documented Vital Signs
Temp Pulse Resp BP Pulse Ox
97.8 F 60 18 143/75 96
11/11/23 11:13 11/11/23 11:13 11/11/23 11:13 11/11/23 11:13 11/11/23 11:13
MDM/Problems Addressed
Differential Diagnosis Includes:
ddx include pelvic contusion, hip strain, pelvic fracture, dysrhythmia
MDM/Problems Addressed:
Fall:
This is a 82 y/o male with a PMH of coronary artery disease, history of stroke, prostate cancer, A-fib pacemaker in place presenting emergency department today with concerns of a fall. Patient presents with his who witnessed the fall. Patient
states he is currently undergoing cardiac rehab as an outpatient. Patient states that he was leaving cardiac rehab today and was trying to get into the car when he missed his step and fell onto his right side. Denies head trauma, neck pain, upper
extremity paresthesias, nausea vomiting, syncopal episode.
Patient is super well-appearing but now complains of right hip pain and some mild pelvic pain with ambulating. I personally observed patient ambulate without difficulty and he states that he feels well. Patient declining Tylenol for pain. I did
interrogate patient's pacemaker which was negative for any arrhythmia today or recently, and it showed that everything was working appropriately. Exam is very well-appearing, he has some mild right hip and groin pain with passive range of motion of
the right hip. X-rays were obtained of the right lower extremity which was negative for any acute fracture or misalignment. Patient stable for discharge. Discussed return precautions.
Chronic conditions affecting care:
A-fib, pacemaker in place, history of TIA, mitral regurgitation,
Acute Exacerbation and/or Progression of Chronic Illness:
n/a
*Radiology
Radiology exam reviewed: preliminary read by ED provider (No acute fracture or dislocation)
*Pulse Oximetry
Patient hypoxic: no
*Critical Care Note
Total Time (30-74mins, 75-104mins- exclusive of procedures): Not Applicable
Data Reviewed
Review of Other/Old Records Reveals: Records (Reviewed previous discharge summary on 09/24/2023 where patient was admitted to have upgrade of device to automated implantable cardioverter defibrillator, placed because patient had episode of
cardiogenic syncope with sustained ventricular tachycardia)
Source: patient and records
Prescriptions/Medications Considered But Not Given:
n/a
Further Testing Considered But Not Given:
n/a
Patient Management
Escalation/DeEscalation of care consider admission/obs:
Case reviewed with my attending Dr. Macias, patient stable for discharge
ED Attending Note
-
Portions of this chart may have been created with voice recognition software.� Occasional wrong word or��sound alike� substitutions may have occurred due to the inherent limitations of voice recognition software.
Discharge Plan
Departure
Patient Disposition: Home (Routine Discharge)
Date of Disposition: 11/11/23
Time of Disposition: 13:08
Patient with high blood pressure during this ER visit?: Yes
Condition: Good
Discharge Problem:
Fall, Contusion of pelvis
Instructions: Groin Strain ED, Fall Prevention for Older Adults
Prescriptions:
No Action
Soy Isoflavones 100 MG capsule
100 mg PO DAILY
esomeprazole magnesium [Nexium] 20 MG capsule,delayed release(DR/EC)
20 mg PO Q48H@0800
atorvastatin 40 MG tablet
40 mg PO QPM
allopurinol 100 MG tablet
100 mg PO DAILY
aspirin 81 MG tablet,delayed release (DR/EC)
81 mg PO DAILY Qty: 90 0RF
carvedilol [Coreg] 3.125 MG tablet
3.125 mg PO BID Qty: 180 3RF
chlorpheniramine maleate 4 mg Tablet
4 mg PO HSPRN PRN (Reason: phlegm)
folic acid 400 mcg Tablet
0.4 mg PO DAILY
garlic 500 mg Capsule
500 mg PO DAILY
cyanocobalamin (vitamin B-12) 500 mcg Tablet
500 mcg PO BID
psyllium Powder
1 tsp PO DAILY@1100
cholecalciferol (vitamin D3) 25 mcg (1,000 unit) Tablet
25 mcg PO DAILY
omega 7-gyf-qpl-fish oil [Fish Oil] 1,000 mg (120 mg-180 mg) Capsule
1 cap PO DAILY
Lung Tonic Supplement 200 mg capsule
200 mg PO DAILY
clopidogrel 75 mg Tablet
75 mg PO DAILY Qty: 30 0RF
acetaminophen 325 mg Tablet
650 mg PO QIDPRN PRN (Reason: mild pain) Qty: 0 0RF
doxazosin 1 mg Tablet
1 mg PO HS Qty: 0 0RF
cholecalciferol (vitamin D3) 25 mcg (1,000 unit) Tablet
25 mcg PO DAILY Qty: 0 0RF
Referrals:
Tito Villatoro MD [Family Provider] -
Activity Restrictions/Additional Instructions:
Your pacemaker evaluation did not show any evidence of concerning rhythms.
You will receive a call from me confirming your x-ray results.
Please return to the emergency department should you experience chest pain, palpitations, shortness of breath, dizziness, lightheadedness, inability to ambulate, or any other signs or symptoms concerning to you.
Interventions
Interventions:
*Risk Screen - Suicide Last Done: 11/11/23 11:13
*General Assessment Last Done: 11/11/23 11:13
*Neglect/Abuse Screening Last Done: 11/11/23 11:13
*ED COVID-19 Vaccine History Last Done: 11/11/23 11:13
*Nursing Disposition Last Done: 11/11/23 13:10
ED-Musculoskeletal Assessment Last Done: 11/11/23 11:40
ED- Neurological Assessment Last Done: 11/11/23 11:40
ED-Skin Assessment Last Done: 11/11/23 11:40
Discharge Date and Time
Discharge Date/Time: 11/11/23 13:16
Print Language: CROATIAN
== END 2023-11-11 13:16 | disposition home or self-care (01) ==
LOC: EMR 11:00
PROVIDERS: EMERGENCY PHYSICIAN Emergency Medicine; FAMILY PHYSICIAN Internal Medicine
DX: S30.0XXA Contusion of lower back and pelvis, initial encounter (principal); W19.XXXA Unspecified fall, initial encounter; Z95.0 Presence of cardiac pacemaker; I25.10 Atherosclerotic heart disease of native coronary artery without angina pectoris; Z86.73 Personal history of transient ischemic attack (TIA), and cerebral infarction without residual deficits; I10 Essential (primary) hypertension
CPT/HCPCS: 99283; 93288; 73502

== ENCOUNTER 2023-12-11 10:32 | Outpatient (RCR) | payer MEDICARE, SELFPAY | END 2023-12-11 23:59 | disposition home or self-care (01) | LOC: CRHB 10:32 | PROVIDERS: ATTENDING PHYSICIAN Internal Medicine Cardiovascular Disease; FAMILY PHYSICIAN Internal Medicine | DX: I25.10 Atherosclerotic heart disease of native coronary artery without angina pectoris (principal); Z95.5 Presence of coronary angioplasty implant and graft; Z95.810 Presence of automatic (implantable) cardiac defibrillator | CPT/HCPCS: G0422; G0423 ==

== ENCOUNTER → 2024-01-07 07:29 | Outpatient (REF) | payer MEDICARE, SELFPAY ==
[2024-01-07 08:41] LABS: % Basophils 1.1 % (0-2); % Lymphocytes 41.7 % (20.5-51.1); % Monocytes 8.8 % (1.7-9.3); % Neutrophils 38.4 % (42.2-75.2); Absolute Basophils 0.1 10^3/uL (0-0.2); Absolute Eosinophils 0.6 10^3/uL (0-0.7); Absolute Lymphocytes 2.6 10^3/uL (1.2-3.4); Absolute Monocytes 0.5 10^3/uL (0.1-0.6); Absolute Neutrophils 2.4 10^3/uL (1.4-6.5); Hematocrit 39.8 % (39.0-52.0); Hemoglobin 13.3 g/dL (13.0-18.0); Mean Corp Hgb Conc. 33.4 g/dL (33.0-37.0); Mean Corpuscular Hgb 30.4 pg (27.0-31.0); Mean Corpuscular Volume 90.9 fL (80.0-94.0); Mean Platelet Volume 10.1 fL (7.4-10.4); Nucleated Red Blood Cells % 0 % (-); Platelet Count 177 10^3/uL (130-400); Red Blood Cell Count 4.38 10^6/uL (4.70-6.10); Red Cell Dist. Width 13.2 % (11.5-14.5); White Blood Cell Count 6.1 10^3/uL (4.8-10.8)
[2024-01-07 09:25] LABS: ALT (SGPT) 15 U/L (0-50); AST (SGOT) 30 U/L (17-59); Albumin 4.3 g/dl (3.5-5.0); Alkaline Phosphatase 69 U/L (38-126); Blood Urea Nitrogen 11 mg/dl (9-20); Calcium 10.4 mg/dl (8.4-10.2); Carbon Dioxide 31 mmol/L (22-30); Chloride 101 mmol/L (98-107); Glucose 103 mg/dl (70-99); HDL Cholesterol 42 mg/dl; LDL Cholesterol, Calculated 48 mg/dl; Potassium 4.6 mmol/L (3.5-5.1); Sodium 142 mmol/L (135-145); Total Bilirubin 0.8 mg/dl (0.2-1.3); Total Cholesterol 110 mg/dl (50-199); Total Protein 7.2 g/dl (6.3-8.2); Triglyceride 102 mg/dl (10-149); Very Low Density Lipoprotein 20 mg/dl (0-30); eGFR > 60.00
== END ==
LOC: REG 07:29
PROVIDERS: ATTENDING PHYSICIAN Internal Medicine
DX: I10 Essential (primary) hypertension (principal); I25.10 Atherosclerotic heart disease of native coronary artery without angina pectoris; J84.10 Pulmonary fibrosis, unspecified; D64.9 Anemia, unspecified
CPT/HCPCS: 36415; 80053; 80061; 84100; 85025

== ENCOUNTER 2024-01-11 10:03 | Outpatient (RCR) | payer MEDICARE, SELFPAY | END 2024-01-11 23:59 | disposition home or self-care (01) | LOC: CRHB 10:03 | PROVIDERS: ATTENDING PHYSICIAN Internal Medicine Cardiovascular Disease; FAMILY PHYSICIAN Internal Medicine | DX: I25.10 Atherosclerotic heart disease of native coronary artery without angina pectoris (principal); Z95.5 Presence of coronary angioplasty implant and graft | CPT/HCPCS: G0422; G0423 ==

== ENCOUNTER 2024-01-18 09:30 | Outpatient (RCR) | payer MEDICARE, SELFPAY | END 2024-01-18 23:59 | disposition home or self-care (01) | LOC: CRHB 09:30 | PROVIDERS: ATTENDING PHYSICIAN Internal Medicine Cardiovascular Disease; FAMILY PHYSICIAN Internal Medicine | DX: I25.10 Atherosclerotic heart disease of native coronary artery without angina pectoris (principal); Z95.5 Presence of coronary angioplasty implant and graft | CPT/HCPCS: G0422; G0423 ==

== ENCOUNTER → 2024-02-12 10:04 | Outpatient (REF) | payer MEDICARE, SELFPAY | LOC: RAD 10:04 | PROVIDERS: ATTENDING PHYSICIAN Surgery Vascular Surgery; FAMILY PHYSICIAN Internal Medicine | DX: I65.23 Occlusion and stenosis of bilateral carotid arteries (principal) | CPT/HCPCS: 93880 ==

== ENCOUNTER → 2024-05-10 06:30 | Outpatient (REF) | payer MEDICARE, SELFPAY ==
[2024-05-10 08:05] LABS: PSA, Total - Diagnostic < 0.06 ng/ml (0.0-4.0)
== END ==
LOC: REG 06:30
PROVIDERS: ATTENDING PHYSICIAN Specialist; FAMILY PHYSICIAN Internal Medicine
DX: C61 Malignant neoplasm of prostate (principal)
CPT/HCPCS: 36415; 84153

== ENCOUNTER 2024-07-11 23:55 | Inpatient (IN) | payer MEDICARE, SELFPAY ==
[2024-07-11 16:08] VITALS: BP 156/71
[2024-07-11 16:32] LABS: % Basophils 0.2 % (0-2); % Eosinophils 0.1 % (0-6); % Immature Granulocytes 0.2 % (0-0.5); % Lymphocytes 13.4 % (20.5-51.1); % Monocytes 8.2 % (1.7-9.3); % Neutrophils 77.9 % (42.2-75.2); Absolute Lymphocytes 1.6 10^3/uL (1.2-3.4); Hematocrit 41.3 % (39.0-52.0); Hemoglobin 14.2 g/dL (13.0-18.0); Mean Corp Hgb Conc. 34.4 g/dL (33.0-37.0); Mean Corpuscular Hgb 31.6 pg (27.0-31.0); Mean Corpuscular Volume 91.8 fL (80.0-94.0); Mean Platelet Volume 9.6 fL (7.4-10.4); Nucleated Red Blood Cells % 0 % (-); Platelet Count 178 10^3/uL (130-400); White Blood Cell Count 11.6 10^3/uL (4.8-10.8)
[2024-07-11 16:44] LABS: ALT (SGPT) 15 U/L (0-50); AST (SGOT) 28 U/L (17-59); Albumin 4.8 g/dl (3.5-5.0); Alkaline Phosphatase 85 U/L (38-126); Blood Urea Nitrogen 16 mg/dl (9-20); Calcium 11.2 mg/dl (8.4-10.2); Carbon Dioxide 30 mmol/L (22-30); Chloride 97 mmol/L (98-107); Glucose 151 mg/dl (70-99); Sodium 137 mmol/L (135-145); Total Bilirubin 1.9 mg/dl (0.2-1.3); Total Protein 8.2 g/dl (6.3-8.2); eGFR > 60.00
[2024-07-11 16:55] LABS: Lipase 98 U/L (23-300)
[2024-07-11 19:11] VITALS: BP 136/78
[2024-07-11] MEDS: NSS 1000 IV ×2 (20:05→23:32)
[2024-07-11] MEDS: ZOFRAN 4 MG IV ×2 (20:05→22:43)
[2024-07-11 20:09] VITALS: BP 124/65
[2024-07-11 20:32] VITALS: BMI 27.5
[2024-07-11 20:50] LABS: COVID-19 Antigen Negative (Negative)
[2024-07-11 22:10] VITALS: BP 105/66
[2024-07-11 23:00] VITALS: BP 131/67
--- NOTE | 2024-07-11 23:15 | ED.GENMED ---
History of Present Illness
General
Chief Complaint: Abdominal Pain
Source: patient and spouse
Exam Limitations: none
Time Seen by Provider: 07/11/24 19:38
Nursing documentation reviewed up to this point in time: agreed with
History of Present Illness
History of Present Illness:
Patient to ED with complaint of generalized abdominal pain, constipation, vomiting. Symptoms started last PM. Denies fever/chills. No prior history of same. Brought to ED by spouse for eval.
Past History
Past History
ED Past Medical History: CAD, Cancer (Prostate CA with radiation), GERD, HTN, Hypercholesterolemia and Other (Pulmonary fibrosis)
ED Past Surgical History: Appendectomy (Questionable patient was unsure), Cardiac (CABG, Stent) and Other (Hernia repair)
Social History
Tobacco: Non-smoker
Alcohol: Occasional
Drug: None
Personal:
Living: with family
Employment: Retired
Family History
Family History: Negative Diabetes, Hypertension, Early CAD, Asthma or Cancer
Review of Systems
Review of Systems
Allergies reviewed?: Yes
All Other Systems: ROS reviewed and negative except as documented in HPI and ROS
Constitutional: Reports no symptoms
EENT: Reports no symptoms
Respiratory: Reports no symptoms
Cardiac: Reports no symptoms
ABD/GI: Reports abdominal pain (diffuse) and constipated
: Reports no symptoms
Musculoskeletal: Reports no symptoms
Skin: Reports no symptoms
Neurological: Reports weakness
Psychiatric: Reports no symptoms
Phy Exam
General Physical Exam
General Presentation: mild distress
General age: appears stated age
General Skin: warm and dry
General Habitus: normal
General Mental: alert
Cardiovascular Exam
Cardiovascular Exam: regular rate/rhythm and no edema
Pulmonary Exam
Pulmonary Exam: lungs clear and no respiratory distress
Gastrointestinal Exam
Gastrointestinal Exam: soft, no organomegaly, no pulsatile mass, non distended and no cva tenderness
Palpation: generalized: Mild tenderness
Musculoskeletal Exam
Musculoskeletal Exam: full ROM and neuro vasc intact
Skin Exam
Skin Exam: normal color and warm/dry
Psychiatric Exam
Psychiatric Exam: normal mood/affect
Course
Orders/Labs/Results
Orders:
Orders
07/11/24 16:18
Complete Blood Count/With Diff Urgent
Comprehensive Metabolic Panel Urgent
Lipase Urgent
07/11/24 19:53
Add On- LAB Urgent
Tests Added?: lipase
0.9% Sodium Chloride 1000 ml [Nss] 1,000 ml IV BOLUS
Ondansetron Injectable [Zofran] 4 mg IV NOW STA
Abdomen Xray - 1 View [CR Abdomen - 1 View] Urgent
Comment:
Reason For Exam: constipation
US Abdomen Complete/Upper Urgent
Comment:
Reason For Exam: upper abd. pain, elevated Tbili
07/11/24 20:11
COVID-19 Antigen Urgent
Source: Nasal Swab
Influenza A+B Rapid Molecular Urgent
JOSH Source: Nasal Swab
Specimen Description:
07/11/24 21:13
CT Abd/pelvis W Iv Cont Urgent
Comment:
Reason For Exam: pain, vomiting
07/11/24 22:42
Ondansetron Injectable [Zofran] 4 mg .ROUTE .STK-MED ONE
07/11/24 22:43
Ondansetron Injectable [Zofran] 4 mg IV NOW STA
07/11/24 23:20
Piperacillin/Tazo 3.375 Gram [Zosyn] 3.375 gram in 50 ml IV NOW
07/11/24 23:28
Consult Surgery [SURGICAL CONSULT] Urgent
Consulting Provider: Gilbert Cruz
Was physician already notified: Yes
07/11/24 23:30
0.9% Sodium Chloride 1000 ml [Nss] 1,000 ml IV 125 mls/hr
07/11/24 23:48
Admit/Transfer Patient As Directed
Co-Sign Provider:
Level of Care: Inpatient admission
Assign to:: Medical/Surgical
Physician / Group: natalie chase
Diagnosis: acute cholecystitis
Reason for Hospitalization: acute cholecystitis
Expected length of stay greater than two midnights?: Yes
ELOS- Estimated Length of Stay in days: 3
I certify the patient meets the requirements for IP care: Yes
PRN Pain Medication Management As Directed
May give lesser potent ordered pain med per pt: No
preference::
Protocol:: Medication orders for pain may NOT be administered in
a manner that defers to patient preference. Follow
all order instructions as written.
Contact provider if ordering parameters for pain need
to be adjusted.
07/11/24 23:49
Code Status As Directed
Resuscitation Status: Full Code
07/12/24 00:56
0.9% Sodium Chloride 1000 ml [Nss] 1,000 ml IV 80 mls/hr
Bisacodyl [Dulcolax] 10 mg RECTAL Q68BPFR PRN
Docusate W/Senna [Senokot-S] 1 tablet PO BIDPRN PRN
HYDROmorphone [Dilaudid] 0.5 mg IV Q4HPRN PRN
Ondansetron Injectable [Zofran] 4 mg IV Q6HPRN PRN
Polyethylene Glycol Powder [Miralax] 17 grams PO DAILYPRN PRN
07/12/24 00:56
Activity As Directed
Activity Level: With Assistance
Intake/ Output As Directed
Frequency: Per unit guidelines
Vital Signs As Directed
Frequency: Per unit guidelines
DX Deep Vein Thrombosis Video Routine
07/12/24 Breakfast
NPO
Allow oral meds: Yes
Allow clear liquids: Sips of Clears
NPO with Ice Chips: Yes
Complete Blood Count/No Diff IN AM
Comprehensive Metabolic Panel IN AM
Piperacillin/Tazo 3.375 Gram [Zosyn] 3.375 gram in 50 ml IV Q6
07/12/24 08:00
Aspirin Low Dose EC [Aspir Low (Enteric Coated)] 81 mg PO DAILY
Heparin 5,000 units SC Q12
07/12/24 18:00
Atorvastatin [Lipitor] 40 mg PO QPM
Abnormal Lab Results
07/11/24
16:18
WBC 11.6 H 10^3/uL
(4.8-10.8)
RBC 4.50 L 10^6/uL
(4.70-6.10)
MCH 31.6 H pg
(27.0-31.0)
Absolute Neuts (auto) 9.0 H 10^3/uL
(1.4-6.5)
Absolute Monos (auto) 1.0 H 10^3/uL
(0.1-0.6)
Neutrophils % 77.9 H %
(42.2-75.2)
Lymphocytes % 13.4 L %
(20.5-51.1)
Chloride 97 L mmol/L
(98-107)
Creatinine 0.6 L mg/dL
(0.7-1.3)
Glucose 151 H mg/dl
(70-99)
Calcium 11.2 H mg/dl
(8.4-10.2)
Total Bilirubin 1.9 H mg/dl
(0.2-1.3)
07/11/24 16:18
07/11/24 16:18
Vital Signs
Initial and Last Documented VS:
Initial Vital Signs
Temp Pulse Resp BP Pulse Ox
99.2 F 60 18 156/71 95
07/11/24 16:08 07/11/24 16:08 07/11/24 16:08 07/11/24 16:08 07/11/24 16:08
Last Documented Vital Signs
Temp Pulse Resp BP Pulse Ox
99.2 F 80 25 131/69 91
07/11/24 16:08 07/12/24 00:45 07/11/24 22:45 07/12/24 00:00 07/12/24 00:45
*Radiology
Radiology exam reviewed: radiology read reviewed
*Pulse Oximetry
Patient hypoxic: no
*Critical Care Note
Total Time (30-74mins, 75-104mins- exclusive of procedures): Not Applicable
Update Note
Update Note:
Patient to ED for complaint of generalized abdominal discomfort, constipation, n/v since last PM. Afebrile. Labes reviewed. WBC sli elevated at 11.6. Tbili 1.9 with normal ast/alt. Sent for abdominal US however study was limited due to bowel
gas. Abdominal CT obtained. Acute cholecystitis identified. Patient and family notified of findings. Dr. Cruz notified of findings. requestst NPO, IVF, IV zosyn, hold plavix. Patient will be admitted to hospitalist service
ED Attending Note
-
Portions of this chart may have been created with voice recognition software.� Occasional wrong word or��sound alike� substitutions may have occurred due to the inherent limitations of voice recognition software.
Discharge Plan
Departure
Patient Disposition: Admit
Date of Disposition: 07/11/24
Time of Disposition: 23:27
Presentation/result/management discussed w/ accepting MD/DO: Hospitalist
Patient with high blood pressure during this ER visit?: No
Condition: Fair
Covid-19: Not Applicable
Discharge Problem:
Acute cholecystitis
Interventions
Interventions:
*Risk Screen - Suicide Last Done: 07/11/24 16:08
*General Assessment Last Done: 07/11/24 16:08
*Neglect/Abuse Screening Last Done: 07/11/24 16:08
*ED COVID-19 Vaccine History Last Done: 07/11/24 16:08
VT-Aowdnp-Xpgvrjuhzz Assessment Last Done: 07/11/24 20:32
[2024-07-11] MEDS: ZOSYN 50 IV (23:29)
[2024-07-11 23:55] VITALS: BMI 27.5
[2024-07-12] VITALS (8 sets, daily range): BP systolic 123–137; BP diastolic 58–75; BMI 29.1
[2024-07-12] MEDS: NSS 1000 IV ×3 (01:09→12:50)
--- NOTE | 2024-07-12 01:12 | HPS.HSE ---
Family Physician
-
Family Physician: Tito Villatoro
Chief Complaint
-
nausea vomiting and constipation
History of Present Illness
This is an 83-year-old who has past medical history significant for CAD status post CABG, stenting with last stent placed 1 year ago August, GERD, PVCs, status post pacemaker, enlarged aortic root, H. pylori gastritis presents into the emergency
department for complete 2 days of abdominal symptoms.
Patient denied pain, he reports that he has intolerance of oral intake. Anytime he tries to eat he vomits up contents about 30 minutes later. He denies any pain with swallowing. He reports that he has not had a bowel movement in about 36 hours.
He denies any fevers or chills. He denies any sick contacts or recent changes to his medications. He denies any melena or hematochezia.
He came to the emergency department due to the constipation.
In the emergency department he was afebrile, blood pressure was 130/70 and oxygen saturation was 91%. CBC showed a white count of 11 but otherwise unremarkable. Electrolytes were normal. BUN/creatinine were normal. LFTs were normal. Lipase was
normal. Ultrasound was mostly unremarkable but not definitive. CT of the abdomen pelvis revealed stone within the gallbladder neck with pericholecystic fluid and stranding in the surrounding fat consistent with acute cholecystitis. Also noted was
4.2 cm cystic focus within the uncinate process of the pancreas, similar in appearance to prior MRI. 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
Medical History
Past Medical History
Past Medical History: Reports Arrhythmia, CAD, Hypercholesterolemia and Other (Pulmonary fibrosis, mild)
Past Surgical History: Reports Other (Cardiac PCI)
Social History
Tobacco: Non-smoker
Drug: None
Personal:
Living: With Family
Family History
Family History: Not pertinent
Allergies / Home Medications
Allergies reflects when Allergies were last updated in [facility].
Home Medications with original date entered in [facility]
Allergy/Medication List:
Allergies
Allergy/AdvReac Type Severity Reaction Status Date / Time
No Known Allergies Allergy Verified 08/23/23 09:09
Home Medications
soy isoflavone 100 mg capsule (Soy Isoflavones) 100 mg PO DAILY Supplement 07/23/11
esomeprazole magnesium 20 mg capsule,delayed release (Nexium) 20 mg PO Q48H@0800 Gastrointestinal issue 12/07/18
allopurinol 100 mg tablet 100 mg PO DAILY Gout 05/02/20
atorvastatin 40 mg tablet 40 mg PO QPM High cholesterol 05/02/20
aspirin 81 mg tablet,delayed release 81 mg PO DAILY Blood clot prevention/tx #90 tabs 05/08/20
carvedilol 3.125 mg tablet (Coreg) 3.125 mg PO BID #180 tabs 05/08/20
Lung Tonic Supplement 200 mg PO DAILY Supplement 08/23/23
chlorpheniramine maleate 4 mg tablet 4 mg PO HSPRN PRN phlegm 08/23/23
cholecalciferol (vitamin D3) 25 mcg (1,000 unit) tablet 25 mcg PO DAILY Supplement 08/23/23
cyanocobalamin (vitamin B-12) 500 mcg tablet 500 mcg PO BID Supplement 08/23/23
folic acid 400 mcg tablet 0.4 mg PO DAILY Supplement 08/23/23
garlic 500 mg capsule 500 mg PO DAILY Supplement 08/23/23
omega 8-kju-jny-fish oil 1,000 mg (120 mg-180 mg) capsule (Fish Oil) 1 cap PO DAILY Supplement 08/23/23
psyllium 1 tsp PO DAILY@1100 Gastrointestinal Issue 08/23/23
acetaminophen 325 mg tablet 650 mg (2 x 325 mg) PO QIDPRN PRN mild pain #0 tabs 08/28/23
cholecalciferol (vitamin D3) 25 mcg (1,000 unit) tablet 25 mcg PO DAILY Blood clot prevention/tx #0 tabs 08/28/23
clopidogrel 75 mg tablet 75 mg PO DAILY Blood clot prevention/tx #30 tabs 08/28/23
doxazosin 1 mg tablet 1 mg PO HS Blood pressure #0 tabs 08/28/23
Review of Systems
-
History Source: Patient
Constitutional: Reports No Symptoms
EENT: Reports No Symptoms
Respiratory: Reports No Symptoms
Cardiac: Reports No Symptoms
Abdomen/GI: Reports Nausea, Vomiting and Constipated
: Reports No Symptoms
Musculoskeletal: Reports No Symptoms
Skin: Reports No Symptoms
Neurological: Reports No Symptoms
Endocrine: Reports No Symptoms
Hematologic/Lymphatic: Reports No Symptoms
Psych: Reports No Symptoms
Physical Exam
Vital Signs
Vital Signs
Temp Pulse Resp BP Pulse Ox
99.2 F 80 25 131/69 91
07/11/24 16:08 07/12/24 00:45 07/11/24 22:45 07/12/24 00:00 07/12/24 00:45
Physical Exam
General: Well Developed, Well Nourished, No Apparent Distress and Comfortable
HEENT: NormoCephalic, Anicteric, Moist mucous membranes and Atraumatic
Respiratory: Clear
Cardiac: S1/S2 and Regular Rhythm
Breast: Deferred by me
GI: Soft, Non Tender, Non Distended and Normal Bowel Sounds
Rectal: Deferred by Provider
Genito-urinary: Deferred by me
Musculoskeletal: No Clubbing, No Cyanosis and No Edema
Skin: Warm
Neuro: AO x 3 and Nonfocal/grossly intact
Hematologic/Lymphatic: No Lymphadenopathy
Psych: Calm
Laboratory Results
-
Laboratory Results
Total Bilirubin 1.9 mg/dl (0.2-1.3) H 07/11/24 16:18
AST 28 U/L (17-59) 07/11/24 16:18
ALT 15 U/L (0-50) 07/11/24 16:18
Alkaline Phosphatase 85 U/L (38-126) 07/11/24 16:18
Lipase 98 U/L (23-300) 07/11/24 16:18
Data Reviewed
-
CT Scan: Report Reviewed by me
Lab Data: Labs Reviewed by me
Old Records: Reviewed
Impression/Plan
-
IMPRESSION:
83-year-old with GI symptoms including nausea vomiting and a sense of constipation x 2 days found to have stone within the gallbladder neck with pericholecystic fluid and stranding in the surrounding fat consistent with acute cholecystitis. LFTs
were normal. Lipase was normal. His exam is fairly benign without any right upper current tenderness to palpation. He is hemodynamically stable afebrile without leukocytosis and nontoxic-appearing. The findings on the CT scan are definitely
consistent with acute cholecystitis despite patient benign presentation. No stool burden mentioned consistent with severe constipation. No bowel obstruction.
PLAN:
1. Acute cholecystitis
- admit to med/surg
- NPO except meds
- Continue abx with zosyn
- IV fluids, antiemetics and pain control
- ppi iv
- surgery consulted
2. CAD - CABG, CAD/syncope in August 2023 with PCI - 'Successful percutaneous coronary artery intervention of sequential 60 to 70% saphenous vein graft lesions proximal into mid vessel with 2 overlapping 4.0 x 28 mm Xience sonia point drug-eluting stents
complicated by type III coronary perforation status post 3 overlapping 4.5 x 26 mm, 4.0 x 26 mm and 5.0 x 26 mm papyrus covered stents with excellent final angiographic result and KADEN-3 flow.'
- hold plavix for now
- continue aspirin and statin
- hold coreg
DVT PPX - heparin sq
Code status - Full code
[2024-07-12 05:34] LABS: Hematocrit 39.8 % (39.0-52.0); Hemoglobin 13.5 g/dL (13.0-18.0); Mean Corp Hgb Conc. 33.9 g/dL (33.0-37.0); Mean Corpuscular Hgb 32.1 pg (27.0-31.0); Mean Corpuscular Volume 94.5 fL (80.0-94.0); Mean Platelet Volume 10.2 fL (7.4-10.4); Platelet Count 164 10^3/uL (130-400); Red Blood Cell Count 4.21 10^6/uL (4.70-6.10); Red Cell Dist. Width 13.2 % (11.5-14.5); White Blood Cell Count 15.2 10^3/uL (4.8-10.8)
[2024-07-12] MEDS: ZOSYN 50 IV ×4 (05:48→23:59)
--- NOTE | 2024-07-12 05:58 | PTCARENOTE ---
Pt complains of dizziness and SOB when walking to and from bathroom. Denies any complaints of chest pain. Vital signs stable. Remains on RA. EKG/ am labs obtained. call gale in reach. will continue to monitor.
--- NOTE | 2024-07-12 06:01 | PTCARENOTE ---
Pt with episode of vomiting this am, bile in nature. Denies need for nausea medicine at this time, Pt reports he thinks its from his post nasal drip. pt reports pain at tolerable level. IVF infusing as ordered. No other changes in assessment noted
at this time. Will continue to monitor.
[2024-07-12 06:05] LABS: ALT (SGPT) 12 U/L (0-50); AST (SGOT) 25 U/L (17-59); Albumin 4.4 g/dl (3.5-5.0); Alkaline Phosphatase 72 U/L (38-126); Blood Urea Nitrogen 19 mg/dl (9-20); Calcium 10.1 mg/dl (8.4-10.2); Carbon Dioxide 30 mmol/L (22-30); Chloride 99 mmol/L (98-107); Estimated Creatinine Clearance 65 ml/min; Glucose 133 mg/dl (70-99); Potassium 3.9 mmol/L (3.5-5.1); Sodium 142 mmol/L (135-145); Total Protein 7.4 g/dl (6.3-8.2); eGFR > 60.00
[2024-07-12 07:57] LABS: Glucose - Point of Care 126 mg/dl (70-99)
[2024-07-12] MEDS: HEPARIN 5000 UNITS SC (08:20)
[2024-07-12] MEDS: ASPIR LOW (ENTERIC COATED) 81 MG PO (08:20)
[2024-07-12] MEDS: ZOFRAN 4 MG IV (09:18)
--- NOTE | 2024-07-12 09:22 | CON.GS ---
Addendum entered and electronically signed by Parminder Dubois MD 07/12/24 14:39:
IR unable to place cholecystostomy tube due to overlying bowel. Plan for medical management with antibiotics. HIDA scan ordered to confirm cystic duct structure and need for further management. Tentatively added onto our schedule tomorrow for
laparoscopic cholecystectomy after 48 hours of Plavix washout prior
Addendum entered and electronically signed by Parminder Dubois MD 07/12/24 11:30:
Attempted to call son for update. No response.
As noted below, ideally would manage gallbladder with cholecystostomy tube given increased operative risks. Gallbladder in a more centralized location with bowel immediately overlying, will be a difficult placement. Will plan for repeat CT scan
imaging with repositioning down in the IR suite. If unable to place cholecystostomy tube may need to proceed with surgical management.
Original Note:
Medical History
-
Chief Complaint: Abdominal pain, nausea, emesis
History of Present Illness:
Patient is an 83 yo M with a PMH of GERD (h/o H. pylori), HTN, HLD, CAD s/p CABG and PCI with stents as recently as 08/2023 (on ASA and Plavix), h/o V-tach/fib s/p ICD, enlarged aortic root, interstitial pulmonary fibrosis (not on home O2), prostate
cancer s/p XRT, gout, s/p multiple orthopedic procedures, and s/p open RIGHT inguinal hernia repair with mesh. Mr. Trinh presents with 2 to 3 days of not feeling well and nausea and vomiting. He has been unable to keep any oral intake down for
the past 48 hours. He denies any significant abdominal pain or discomfort. He denies any pale or loose stools, in fact he states he has more issues with constipation. Denies any jaundice or tea colored urine. Denies any fevers or chills. He
denies any prior attacks or issues as a relates to his gallbladder.
Past Medical History
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
Past Surgical History: Cardiac (CABG, PCI with stent), Hernia Repair (Open RIGHT inguinal hernia) and Orthopedic (Bilateral shoulder replacements and LEFT knee replacement)
Social History
Tobacco: Non-Smoker
Alcohol: Occasional
Drug: None
Personal:
Living: With Family
Employment: Retired
Family History
Family History: Reviewed & Noncontributory
Allergies / Home Medications
Allergy/AdvReac Type Severity Reaction Status Date / Time
No Known Allergies Allergy Verified 11/11/23 11:13
�Medication �Instructions �Recorded �Confirmed �Type
soy isoflavone 100 mg capsule (Soy 100 mg PO DAILY Supplement 07/23/11 07/12/24 History
Isoflavones)
esomeprazole magnesium 20 mg 20 mg PO Q48H@0800 12/07/18 07/12/24 History
capsule,delayed release (Nexium) Gastrointestinal issue
allopurinol 100 mg tablet 100 mg PO DAILY Gout 05/02/20 07/12/24 History
atorvastatin 40 mg tablet 40 mg PO QPM High cholesterol 05/02/20 07/12/24 History
aspirin 81 mg tablet,delayed 81 mg PO DAILY Blood clot 05/08/20 07/12/24 Rx
release prevention/tx #90 tabs
carvedilol 3.125 mg tablet (Coreg) 3.125 mg PO BID #180 tabs 05/08/20 07/12/24 Rx
chlorpheniramine maleate 4 mg 4 mg PO HSPRN PRN phlegm 08/23/23 07/12/24 History
tablet
cholecalciferol (vitamin D3) 25 25 mcg PO DAILY Supplement 08/23/23 07/12/24 History
mcg (1,000 unit) tablet
cyanocobalamin (vitamin B-12) 500 500 mcg PO BID Supplement 08/23/23 07/12/24 History
mcg tablet
folic acid 400 mcg tablet 0.4 mg PO DAILY Supplement 08/23/23 07/12/24 History
omega [id number]-fish oil 1,000 mg 1 cap PO DAILY Supplement 08/23/23 07/12/24 History
(120 mg-180 mg) capsule (Fish Oil)
psyllium 1 tsp PO DAILY@1100 08/23/23 07/12/24 History
Gastrointestinal Issue
acetaminophen 325 mg tablet 650 mg (2 x 325 mg) PO QIDPRN PRN 08/28/23 07/12/24 Rx
mild pain #0 tabs
clopidogrel 75 mg tablet 75 mg PO DAILY Blood clot 08/28/23 07/12/24 Rx
prevention/tx #30 tabs
doxazosin 1 mg tablet 1 mg PO HS Blood pressure #0 tabs 08/28/23 07/12/24 Rx
Review of Systems
-
A 10 point review of systems was completed, and was negative except as per HPI.
Physical Exam
Vital Signs
Temp Pulse Resp BP Pulse Ox
98.6 F 60 18 130/72 95
07/12/24 07:27 07/12/24 07:27 07/12/24 07:27 07/12/24 07:27 07/12/24 07:27
07/11/24 07/12/24 07/13/24
06:59 06:59 06:59
Actual Weight 76.8 kg
Body Mass Index (BMI) 29.1
Lab Results
07/12/24 04:55
07/12/24 04:55
WBC 15.2 10^3/uL (4.8-10.8) H 07/12/24 04:55
Hgb 13.5 g/dL (13.0-18.0) 07/12/24 04:55
Hct 39.8 % (39.0-52.0) 07/12/24 04:55
Plt Count 164 10^3/uL (130-400) 07/12/24 04:55
Abs Immat Gran (auto) 0.0 10^3/uL (0-0.05) 07/11/24 16:18
Neutrophils % 77.9 % (42.2-75.2) H 07/11/24 16:18
Physical Exam
General: Respiratory Distress, Pain and Other (Uncomfortable)
HEENT: Normocephalic and Anicteric
Respiratory: Other (Increased WOB)
Cardiac: Regular Rhythm
GI: Soft, Non Tender, Non Distended and Other (Negative Burt's sign)
Musculoskeletal: No Edema
Neuro: Nonfocal/Grossly Intact
Data Reviewed
-
CT Scan: Image Personally Visualized and interpreted and Report Reviewed by me
Ultrasound: Image Personally Visualized and interpreted and Report Reviewed by me
Labs: Labs Reviewed by me
Assessment / Plan
-
Patient is a 83 yo M p/w acute cholecystitis
The natural history and pathophysiology of biliary and stone disease was briefly discussed. Workup thus far including CT scan, ultrasound, and labs were reviewed. CT notable for significant inflammation and distention of his gallbladder with
closely approximated small and large bowel (likely contributing to his nausea and emesis). Labs notable for a rising WBC and elevated bilirubin without LFT abnormalities. Options for management including medical management with antibiotics alone,
cholecystostomy tube placement, and cholecystectomy were considered and discussed. The pros and cons of all management strategies was considered and discussed. Patient is at increased risk for operative complications as a relates to his likely
delayed presentation with severity of cholecystitis in the setting of active antiplatelet therapy. He also appears to have cardiopulmonary risk factors which are complicating his presentation. Recommend cholecystostomy tube placement. Patient
agrees. All questions answered.
-- IR cholecystostomy tube placement
-- NPO, IVF
-- Abx: Zosyn
-- Continue to hold Plavix for now
--- NOTE | 2024-07-12 14:05 | W.PN.HOSP.TC ---
Today's Communication/Plan
-
Continue IV Zosyn
Perc Antoni versus lap antoni
Antiemetics and analgesics
Hold Plavix and carvedilol
Assessment / Plan
Assessment / Plan
#Acute calculus cholecystitis
-Presented with persistent nausea and vomiting; CT with cholelithiasis and gallbladder neck and inflammation
-Upon arrival was started on IV Zosyn; made n.p.o. and started on IVF with antiemetics
-Surgery consulted, initial plan for PERC antoni though concerns with bowel loop overlying gallbladder
-Surgery repeating CT scan to reassess target for percutaneous cholecystotomy
-Will continue n.p.o. status for now, follow-up repeat CT scan
-Continue with IV Zosyn, trend CBC and temperature curve, serial abdomen exams
-Continue with antiemetics and analgesics
-Decision for laparoscopic cholecystectomy versus PERC Antoni per surgery team
#CAD s/p CABG and PCI
#Dyslipidemia
-Home medications include beta-turner, DAPT, high intensity statin
-Last had PCI in August 2023 with YOKASTA placed into saphenous venous graft
-Upon admission Plavix and carvedilol held in preparation of OR; continued on aspirin and statin
-No signs of ACS at this time
-LDL goal <70
#IPF
-History of mild pulmonary fibrosis; not on home O2 or antifibrotic therapy
-No signs of exacerbation at this time
-Will monitor for symptoms
#GERD
#H/O H. pylori (+) gastritis
-Home medications include esomeprazole every other day
-Transition to IV PPI daily while inpatient
-No signs of significant abdomen pain or bleeding
#Primary hypertension
-Home medications include carvedilol, doxazosin
-No known history of hypertensive systemic disease
-Blood pressure currently adequate
#H/O prostate cancer s/p XRT
#H/O VT s/p AICD
DVT prophylaxis: SCDs
Diet: N.p.o. in preparation of OR
CODE STATUS: Full code
Anticipated Discharge: > 48 hours
Subjective/Interval History
-
Date of Service: July 12, 2024
Seen and examined at the bedside. No acute events reported overnight. AFVSS
Patient states he still has some nausea though improved. Denies any significant abdomen pain at any point
Denies any new complaints as of this morning.
Objective Data
-
Labs:
Laboratory Results
07/12/24
04:55
WBC 15.2 H
Hgb 13.5
Hct 39.8
Plt Count 164
Sodium 142
Potassium 3.9
Chloride 99
Carbon Dioxide 30
BUN 19
Creatinine 0.7
Glucose 133 H
Calcium 10.1
Total Bilirubin 2.0 H
AST 25
ALT 12
Alkaline Phosphatase 72
Vital Signs:
Vital Signs
Temp Pulse Resp BP Pulse Ox
97.4 F 59 16 133/68 97
07/12/24 11:18 07/12/24 11:18 07/12/24 11:18 07/12/24 11:18 07/12/24 12:27
I&O
07/11/24 07/12/24 07/13/24
06:59 06:59 06:59
Intake Total 450 / 450 50 / 50
Balance 450 / 450 50 / 50
Review of Systems
-
History Source: Patient
All other systems: Reviewed and negative
Physical Exam
-
General: Well Developed, Well Nourished and No Apparent Distress
HEENT: Normocephalic, Atraumatic, Moist Mucous Membranes and Anicteric
Respiratory: Clear to Auscultation and Non Labored Respirations
Cardiac: Regular Rhythm and S1/S2; Negative Murmur, Rub, JVD or Gallop
GI: Soft, Nontender, Nondistended, Normal Bowel Sounds and Other (No tenderness to RUQ)
Musculoskeletal: No Clubbing, No Cyanosis and No Edema
Skin: Warm, Dry and Normal Turgor; Negative Rash or Jaundice
Neuro: AO x 3 and Nonfocal/Grossly Intact
Psych: Calm
Data Reviewed
-
Labs: Labs Reviewed by me and Discussed with Patient
[2024-07-12] MEDS: LIPITOR 40 MG PO (17:05)
[2024-07-13] VITALS (12 sets, daily range): BP systolic 113–154; BP diastolic 55–72; PULSE 65; O2SAT 96
[2024-07-13] MEDS: NSS 1000 IV (01:57)
[2024-07-13] MEDS: ZOSYN 50 IV ×4 (05:03→23:03)
--- NOTE | 2024-07-13 11:08 | PTCARENOTE ---
[facility] note: Patient is in Nuclear med for HIDA scan. asked to give morphine sulfate 2mg IV for HIDA. patient identified. Allergies confirmed.At 1050, Pre med VS: BP 124/60 HR 73 RR14 SPO2 93% RA. Morphine 2mg IVP given thru right AC PIV at 1053. Post
med VS at 1055: BP 111/51 HR 67 RR 16 SPO2 92%RA. Tolerated well.
--- NOTE | 2024-07-13 11:27 | CM ---
Patient was off floor for testing. Patient's spouse and son bedside, initial assessment completed. Patient is a 83-year-old who has past medical history significant for CAD status post CABG, stenting with last stent placed 1 year ago August, GERD,
PVCs, status post pacemaker, enlarged aortic root, H. pylori gastritis presents into the emergency department for complete 2 days of abdominal symptoms.
Continue IV Zosyn
Patient resides w/ spouse in [facility]- 1 step to enter. Patient and spouse have a 1st flr set up, do not utilize the second floor. Patient uses cane for ambulation, has tub grab bar and shower chair. Denies SNF/HC hx. OP therapy in the past. No current
home or OP services at this time.
Address, points of contact and insurance verified
PCP: Tito Villatoro
Pharmacy: [facility]
PT/OT evaluations ordered, will review any recommendations once determined
Plan: CM will cont to follow for d/c needs
[2024-07-13] MEDS: ASPIR LOW (ENTERIC COATED) 81 MG PO (11:44)
[2024-07-13 12:15] LABS: % Basophils 0.2 % (0-2); % Eosinophils 0.2 % (0-6); % Immature Granulocytes 0.4 % (0-0.5); % Lymphocytes 15.1 % (20.5-51.1); % Monocytes 6.7 % (1.7-9.3); % Neutrophils 77.4 % (42.2-75.2); Absolute Lymphocytes 1.5 10^3/uL (1.2-3.4); Absolute Monocytes 0.7 10^3/uL (0.1-0.6); Absolute Neutrophils 7.9 10^3/uL (1.4-6.5); Hematocrit 36.5 % (39.0-52.0); Hemoglobin 11.8 g/dL (13.0-18.0); Mean Corp Hgb Conc. 32.3 g/dL (33.0-37.0); Mean Corpuscular Hgb 31.9 pg (27.0-31.0); Mean Corpuscular Volume 98.6 fL (80.0-94.0); Mean Platelet Volume 10.1 fL (7.4-10.4); Nucleated Red Blood Cells % 0 % (-); Platelet Count 140 10^3/uL (130-400); Red Cell Dist. Width 13.4 % (11.5-14.5); White Blood Cell Count 10.2 10^3/uL (4.8-10.8)
[2024-07-13 12:50] LABS: ALT (SGPT) 16 U/L (0-50); AST (SGOT) 28 U/L (17-59); Albumin 3.6 g/dl (3.5-5.0); Alkaline Phosphatase 61 U/L (38-126); Blood Urea Nitrogen 32 mg/dl (9-20); Carbon Dioxide 31 mmol/L (22-30); Chloride 102 mmol/L (98-107); Direct Bilirubin 0.3 mg/dl (0.0-0.4); Estimated Creatinine Clearance 65 ml/min; Glucose 96 mg/dl (70-99); Potassium 3.3 mmol/L (3.5-5.1); Sodium 143 mmol/L (135-145); Total Bilirubin 1.6 mg/dl (0.2-1.3); Total Protein 6.5 g/dl (6.3-8.2); eGFR > 60.00
--- NOTE | 2024-07-13 13:26 | W.PN.HOSP.TC ---
Today's Communication/Plan
-
Continue IV Zosyn
Possible OR tomorrow
N.p.o. with IV maintenance fluids
Trend CBC and abdomen exams
Assessment / Plan
Assessment / Plan
#Acute calculus cholecystitis
-Presented with persistent nausea and vomiting; CT with cholelithiasis and gallbladder neck and inflammation
-Upon arrival was started on IV Zosyn; made n.p.o. and started on IVF with antiemetics
-Surgery consulted, initial plan for PERC antoni though concerns with bowel loop overlying gallbladder
-Surgery repeating CT scan to reassess target for percutaneous cholecystotomy
-Percutaneous cholecystotomy was unable to be performed due to overlying bowel loop
-HIDA scan was ordered this morning to assess cystic duct anatomy; added to the OR list on 07/14, tentatively
-Leukocytosis and nausea have improved with IV antibiotic; HIDA did not visualize gallbladder
Plan
-Continue with IV Zosyn and maintenance fluid
-Trend CBC and temperature curve
-Serial abdomen exams
-Continue with antiemetics and analgesics
-Laparoscopy later today
#CAD s/p CABG and PCI
#Dyslipidemia
-Home medications include beta-turner, DAPT, high intensity statin
-Last had PCI in August 2023 with YOKASTA placed into saphenous venous graft
-Upon admission Plavix and carvedilol held in preparation of OR; continued on aspirin and statin
-No signs of ACS at this time
-LDL goal <70
#IPF
-History of mild pulmonary fibrosis; not on home O2 or antifibrotic therapy
-No signs of exacerbation at this time
-Will monitor for symptoms
#GERD
#H/O H. pylori (+) gastritis
-Home medications include esomeprazole every other day
-Transition to IV PPI daily while inpatient
-No signs of significant abdomen pain or bleeding
#Primary hypertension
-Home medications include carvedilol, doxazosin
-No known history of hypertensive systemic disease
-Blood pressure currently adequate
#H/O prostate cancer s/p XRT
#H/O VT s/p AICD
DVT prophylaxis: SCDs
Diet: N.p.o. for now
CODE STATUS: Full code
Anticipated Discharge: > 48 hours
Subjective/Interval History
-
Date of Service: July 13, 2024
Seen and examined at the bedside. No acute events reported overnight. AFVSS this morning
Leukocytosis resolved. Attempted to place percutaneous cholecystotomy tube on 07/12 however unable due to overlying bowel loops. HIDA ordered for this morning, surgery added patient to the OR on 07/14 tentatively for possible laparotomy.
Patient denies any new complaints this morning. Nausea improved
Objective Data
-
Labs:
Laboratory Results
07/13/24
11:56
WBC 10.2
Hgb 11.8 L
Hct 36.5 L
Plt Count 140
Sodium 143
Potassium 3.3 L
Chloride 102
Carbon Dioxide 31 H
BUN 32 H
Creatinine 0.7
Glucose 96
Calcium 9.0
Total Bilirubin 1.6 H
AST 28
ALT 16
Alkaline Phosphatase 61
Vital Signs:
Vital Signs
Temp Pulse Resp BP Pulse Ox
98.0 F 69 18 113/69 92
07/13/24 07:40 07/13/24 07:40 07/13/24 07:40 07/13/24 07:40 07/13/24 07:40
I&O
07/12/24 07/13/24 07/14/24
06:59 06:59 06:59
Intake Total 450 / 450 1600 / 1600
Output Total 350 / 350
Balance 450 / 450 1250 / 1250
Review of Systems
-
History Source: Patient
All other systems: Reviewed and negative
Physical Exam
-
General: Well Developed, Well Nourished and No Apparent Distress
HEENT: Normocephalic, Atraumatic, Moist Mucous Membranes and Anicteric
Respiratory: Crackles and Non Labored Respirations; Negative Wheezes, Rales, Rhonchi or Accessory Resp Muscle Use
Cardiac: Regular Rhythm and S1/S2; Negative Murmur, Rub or Gallop
GI: Soft, Nontender, Nondistended and Normal Bowel Sounds
Musculoskeletal: No Clubbing, No Cyanosis and No Edema
Skin: Warm and Dry; Negative Rash, Normal Turgor or Jaundice
Neuro: AO x 3 and Nonfocal/Grossly Intact
Psych: Calm
Data Reviewed
-
Labs: Labs Reviewed by me and Discussed with Patient
[2024-07-13] MEDS: LR 1000 IV (14:31)
--- NOTE | 2024-07-13 15:39 | W.PN.GS2 ---
Today's Communication / Plan
-
-- Laparoscopic possible open cholecystectomy with possible cholangiogram
-- NPO, IVF
-- Zosyn
Assessment / Plan
-
Patient is an 83 yo M p/w acute cholecystitis
AVSS
Labs notable for normalized WBC, and slight downtrend in bilirubin, normal LFTs and ALP
Previous discussions regarding the natural history and pathophysiology of biliary and stone disease. Diagnosis has been confirmed on ultrasound, CT scan, and most recently a HIDA scan. He is at increased risk for operative complications given the
duration of his symptoms, advanced age, and active antiplatelet therapy. Previous attempts at IR cholecystostomy tube unable to be performed due to overlying bowel. Options for management were reviewed. Consideration of medical management with
antibiotics versus surgical management with cholecystectomy possible partial cholecystectomy with drain placement. Pros and cons of both approaches was discussed. Specifically, we discussed failure of medical management and worsening or
deterioration of his cholecystitis versus surgical risks. Mr. Ryan would like to proceed with surgical management.
Plan for a laparoscopic possible open cholecystectomy with possible cholangiogram. Procedure itself, as well as the risks, benefits, and alternatives was discussed. Specifically, we discussed the risks of bleeding, infection, injury to surrounding
structures (bowel, bile ducts), CBD injury, need for open procedure. We also discussed the potential for a partial cholecystectomy and need for future GI procedures. Typical postprocedure recovery was discussed. All questions answered. Consent
signed. Son updated by phone.
-- Laparoscopic possible open cholecystectomy with possible cholangiogram
-- NPO, IVF
-- Zosyn
Subjective Data
-
Date of Service: July 13, 2024
Feels slightly improved, less nausea. Continues to deny any abdominal pain. No fevers.
Objective Data
-
Intake and Output
07/12/24 07/13/24 07/14/24
06:59 06:59 06:59
Intake Total 450 / 450 1600 / 1600
Output Total 350 / 350
Balance 450 / 450 1250 / 1250
Intake:
IV fluids (Total) 400 / 400 1400 / 1400
IV piggybacks 50 / 50 200 / 200
Output:
Urine, Voided 350 / 350
Other:
Number of approximated MODERATE 1
amounts of urine
Vital Signs
Temp Pulse Resp BP Pulse Ox
98.0 F 69 18 113/69 92
07/13/24 07:40 07/13/24 07:40 07/13/24 07:40 07/13/24 07:40 07/13/24 07:40
Lab Results
07/13/24 11:56
07/13/24 11:56
Calcium 9.0 mg/dl (8.4-10.2) 07/13/24 11:56
Total Bilirubin 1.6 mg/dl (0.2-1.3) H 07/13/24 11:56
Direct Bilirubin 0.3 mg/dl (0.0-0.4) 07/13/24 11:56
AST 28 U/L (17-59) 07/13/24 11:56
ALT 16 U/L (0-50) 07/13/24 11:56
Alkaline Phosphatase 61 U/L (38-126) 07/13/24 11:56
Total Protein 6.5 g/dl (6.3-8.2) 07/13/24 11:56
Albumin 3.6 g/dl (3.5-5.0) 07/13/24 11:56
Physical Exam
-
Gen: NAD
Abd: soft, NT/ND, palpable GB, non-peritoneal
Patient has a deal catheter: No
Patient has a central line: No
--- NOTE | 2024-07-13 15:42 | W.SUR.PREOP ---
Pre-Operative Surgical Note
-
I have examined this patient prior to the performance of the scheduled procedure.
The patient's condition is unchanged from the time of the current History and
Physical and the patient is able to undergo the scheduled procedure.
--- NOTE | 2024-07-13 18:12 | W.IMMPOSTOP ---
Surgical Immed Post Op Note
-
Primary Surgeon: Sherly
Assisting Surgeon: Aydee, PGY1
Pre-op Diagnosis: Acute cholecystitis
Post-op Diagnosis: Acute on chronic cholecystitis
Procedure Performed: Laparoscopic subtotal cholecystectomy
Anesthesia Type: General
Specimen / Cultures:
1. Gallbladder
Estimated Blood Loss: 101 cc
Complications: None
Operative Findings:
1. Severely inflamed GB with dense omental and duodenal adhesions
2. Removal of anterior 90% of GB wall, no bile leak unable to clearly identify cystic duct orifice
3. All visible stones removed, mucosa ablated
4 19 Fr Sarabjit into operative field
[2024-07-13] MEDS: LIPITOR 40 MG PO (19:32)
[2024-07-13] MEDS: TYLENOL 650 MG PO (23:03)
[2024-07-14] MEDS: MYLICON 80 MG PO (02:33)
[2024-07-14 03:00] VITALS: BP 128/64
[2024-07-14] MEDS: TYLENOL PO (03:06)
[2024-07-14] MEDS: ZOSYN 50 IV ×4 (05:28→23:37)
[2024-07-14] MEDS: LR 1000 IV ×2 (05:44→17:02)
--- NOTE | 2024-07-14 07:36 | W.PN.GS2 ---
Today's Communication / Plan
-
-- Clears
-- Pain control: Tylenol, Tramadol
-- Abx: Zosyn, anticipate 7 days post-op
-- IVF per Hospitalist
-- DVT: Lovenox, hold Plavix for at least 2 days post-op
-- FARIDA drain to remain in place for at least 1 week post-op
-- Trend labs
Assessment / Plan
-
Patient is an 83 yo M p/w acute cholecystitis, now POD#1 s/p laparoscopic subtotal cholecystectomy
AVSS
Labs pending
Recovering well overall. No postoperative concerns at this point in time. Maintain in hospital for close monitoring of drain and potential bile leak, additional IV antibiotics, pain management, monitoring of his cardiopulmonary status and dietary
tolerance.
-- Clears
-- Pain control: Tylenol, Tramadol
-- Abx: Zosyn, anticipate 7 days post-op
-- IVF per Hospitalist
-- DVT: Lovenox
-- FARIDA drain to remain in place for at least 1 week post-op
-- Trend labs
Subjective Data
-
Date of Service: July 14, 2024
No complaints. Pain well-controlled. Reports significant abdominal bloating, but passing flatus and no nausea or vomiting. Afebrile. Minimal ambulation. Denies any worsening shortness of breath or chest pain.
Objective Data
-
Intake and Output
07/13/24 07/14/24 07/15/24
06:59 06:59 06:59
Intake Total 1600 / 1600 1340 / 1340
Output Total 350 / 350 500 / 500
Balance 1250 / 1250 840 / 840
Intake:
Oral fluids 240 / 240
IV fluids (Total) 1400 / 1400 1000 / 1000
IV piggybacks 200 / 200 100 / 100
Output:
Drain Output (Total) 0 / 0
Right Abdomen Stevan-Echeverria A 0 / 0
Urine, Voided 350 / 350 500 / 500
Other:
Number of approximated SMALL 2
amounts of urine
Number of approximated MODERATE 1
amounts of urine
Vital Signs
Temp Pulse Resp BP Pulse Ox
97.9 F 61 14 128/64 93
07/14/24 03:00 07/14/24 03:00 07/14/24 03:00 07/14/24 03:00 07/14/24 03:00
Calcium 9.0 mg/dl (8.4-10.2) 07/13/24 11:56
Total Bilirubin 1.6 mg/dl (0.2-1.3) H 07/13/24 11:56
Direct Bilirubin 0.3 mg/dl (0.0-0.4) 07/13/24 11:56
AST 28 U/L (17-59) 07/13/24 11:56
ALT 16 U/L (0-50) 07/13/24 11:56
Alkaline Phosphatase 61 U/L (38-126) 07/13/24 11:56
Total Protein 6.5 g/dl (6.3-8.2) 07/13/24 11:56
Albumin 3.6 g/dl (3.5-5.0) 07/13/24 11:56
Physical Exam
-
Gen: NAD
Abd: soft, NT/ND, non-peritoneal, incisions c/d/i - no erythema, ecchymosis or drainage, FARIDA dry, non-bilious
Patient has a deal catheter: No
Patient has a central line: No
[2024-07-14 07:47] VITALS: BP 131/72
[2024-07-14 08:00] LABS: % Basophils 0.2 % (0-2); % Eosinophils 0.8 % (0-6); % Immature Granulocytes 0.4 % (0-0.5); % Lymphocytes 11.4 % (20.5-51.1); % Monocytes 8.6 % (1.7-9.3); % Neutrophils 78.6 % (42.2-75.2); Absolute Eosinophils 0.1 10^3/uL (0-0.7); Absolute Lymphocytes 1.1 10^3/uL (1.2-3.4); Absolute Monocytes 0.8 10^3/uL (0.1-0.6); Absolute Neutrophils 7.7 10^3/uL (1.4-6.5); Hematocrit 34.2 % (39.0-52.0); Hemoglobin 11.1 g/dL (13.0-18.0); Mean Corp Hgb Conc. 32.5 g/dL (33.0-37.0); Mean Corpuscular Hgb 32.1 pg (27.0-31.0); Mean Corpuscular Volume 98.8 fL (80.0-94.0); Mean Platelet Volume 10.4 fL (7.4-10.4); Nucleated Red Blood Cells % 0 % (-); Platelet Count 127 10^3/uL (130-400); Red Blood Cell Count 3.46 10^6/uL (4.70-6.10); Red Cell Dist. Width 13.4 % (11.5-14.5); White Blood Cell Count 9.8 10^3/uL (4.8-10.8)
[2024-07-14] MEDS: HEPARIN 5000 UNITS SC ×2 (08:31→20:43)
[2024-07-14] MEDS: TYLENOL 650 MG PO ×5 (08:32→23:37)
[2024-07-14] MEDS: ASPIR LOW (ENTERIC COATED) 81 MG PO (08:32)
[2024-07-14] MEDS: LR IV (09:32)
[2024-07-14 09:42] LABS: ALT (SGPT) 21 U/L (0-50); AST (SGOT) 48 U/L (17-59); Albumin 3.3 g/dl (3.5-5.0); Alkaline Phosphatase 67 U/L (38-126); Blood Urea Nitrogen 30 mg/dl (9-20); Calcium 8.8 mg/dl (8.4-10.2); Carbon Dioxide 28 mmol/L (22-30); Chloride 105 mmol/L (98-107); Direct Bilirubin 0.4 mg/dl (0.0-0.4); Estimated Creatinine Clearance 65 ml/min; Glucose 92 mg/dl (70-99); Potassium 3.4 mmol/L (3.5-5.1); Sodium 143 mmol/L (135-145); Total Bilirubin 1.3 mg/dl (0.2-1.3); eGFR > 60.00
--- NOTE | 2024-07-14 12:26 | W.PN.HOSP.TC ---
Addendum entered and electronically signed by Max Monroe DO 07/14/24 12:30:
Hypokalemia -repleted K
Plan to resume Plavix on 07/16
Original Note:
Today's Communication/Plan
-
Continue antibiotics
Slowly escalate diet
Trend labs
OOB
Assessment / Plan
Assessment / Plan
#Acute calculus cholecystitis
-Presented with persistent nausea and vomiting; CT with cholelithiasis and gallbladder neck and inflammation
-Upon arrival was started on IV Zosyn; made n.p.o. and started on IVF with antiemetics
-Surgery consulted, initial plan for PERC antoni though concerns with bowel loop overlying gallbladder
-Surgery repeating CT scan to reassess target for percutaneous cholecystotomy
-Percutaneous cholecystotomy was unable to be performed due to overlying bowel loop
-HIDA scan was ordered this morning to assess cystic duct anatomy; added to the OR list on 07/14, tentatively
-Leukocytosis and nausea have improved with IV antibiotic; HIDA did not visualize gallbladder
Plan
-Continue with IV Zosyn and maintenance fluid
-Plan to transition to Augmentin to complete 7-day postoperative course
-Trend CBC and temperature curve
-Serial abdomen exams
-Continue with antiemetics and analgesics
#CAD s/p CABG and PCI
#Dyslipidemia
-Home medications include beta-turner, DAPT, high intensity statin
-Last had PCI in August 2023 with YOKASTA placed into saphenous venous graft
-Upon admission Plavix and carvedilol held in preparation of OR; continued on aspirin and statin
-No signs of ACS at this time
-LDL goal <70
#IPF
-History of mild pulmonary fibrosis; not on home O2 or antifibrotic therapy
-No signs of exacerbation at this time
-Will monitor for symptoms
#GERD
#H/O H. pylori (+) gastritis
-Home medications include esomeprazole every other day
-Transition to IV PPI daily while inpatient
-No signs of significant abdomen pain or bleeding
#Primary hypertension
-Home medications include carvedilol, doxazosin
-No known history of hypertensive systemic disease
-Blood pressure currently adequate
#H/O prostate cancer s/p XRT
#H/O VT s/p AICD
DVT prophylaxis: SCDs
Diet: CLD, advance slowly
CODE STATUS: Full code
Disposition: Home care
Anticipated Discharge: 24 - 48 hours
Subjective/Interval History
-
Date of Service: July 14, 2024
Seen and examined at the bedside. No acute events reported overnight. AFVSS this morning
Had laparoscopic cholecystectomy yesterday. Feeling well today, denies abdomen pain, N/V, or fever
Hemoglobin down from 11.8-11.1. Potassium 3.4, 40 mill equivalents provided
Objective Data
-
Labs:
Laboratory Results
07/14/24
07:21
WBC 9.8
Hgb 11.1 L
Hct 34.2 L
Plt Count 127 L
Sodium 143
Potassium 3.4 L
Chloride 105
Carbon Dioxide 28
BUN 30 H
Creatinine 0.7
Glucose 92
Calcium 8.8
Total Bilirubin 1.3
AST 48
ALT 21
Alkaline Phosphatase 67
Vital Signs:
Vital Signs
Temp Pulse Resp BP Pulse Ox
98.2 F 72 16 131/72 96
07/14/24 07:47 07/14/24 07:47 07/14/24 07:47 07/14/24 07:47 07/14/24 08:33
I&O
07/13/24 07/14/24 07/15/24
06:59 06:59 06:59
Intake Total 1600 / 1600 1340 / 1340 630 / 630
Output Total 350 / 350 500 / 500 225 / 225
Balance 1250 / 1250 840 / 840 405 / 405
Review of Systems
-
History Source: Patient
All other systems: Reviewed and negative
Physical Exam
-
General: Well Developed, No Apparent Distress and Comfortable
HEENT: Normocephalic, Atraumatic and Moist Mucous Membranes
Respiratory: Clear to Auscultation and Non Labored Respirations
Cardiac: Regular Rhythm and S1/S2; Negative Murmur, Rub or Gallop
GI: Soft, Nontender, Nondistended, Normal Bowel Sounds and Other (Mild tenderness near surgical incisions)
Musculoskeletal: No Clubbing, No Cyanosis and No Edema
Skin: Warm, Dry and Normal Turgor; Negative Rash or Jaundice
Neuro: AO x 3 and Nonfocal/Grossly Intact
Psych: Calm
Data Reviewed
-
Labs: Labs Reviewed by me and Discussed with Patient
[2024-07-14 12:30] LABS: Glucose - Point of Care 189 mg/dl (70-99)
[2024-07-14 12:34] VITALS: BP 107/67
--- NOTE | 2024-07-14 12:34 | PTCARENOTE ---
pt reports feeling lightheaded and dizzy. vitals checked; pt noted to be sating in med 80s on RA. pt placed on 2L NC coming up to 94%. pt reports symptoms subsided. pt encouraged to take deep breaths and continue to use incentive. blood sugar
was 186. pt in bed, rails up x 3. watching tv, spouse at bedside. pt tolerating po food. plan of care continues to be followed.
[2024-07-14] MEDS: KCL 40 MEQ PO (14:50)
--- NOTE | 2024-07-14 15:26 | CM ---
CM following re: discharge planning.
Reviewed pt's chart, met with pt.
Pt reports he lives with spouse 2SH, has supportive son.
PT and OT evaluations noted - VN services recommended. Pt is aware, expressed his agreement. VN choice provided, pt preferred [facility]. A referral to [facility] made.
D/C plan: home with [facility] and family support. Spouse to transport at discharge.
CM will follow with discharge plan updates as needed.
[2024-07-14 15:33] VITALS: BP 111/74
--- NOTE | 2024-07-14 16:37 | PTCARENOTE ---
Pt given scheduled tylenol dose. Pts at bedside. Awaiting transfer to [facility]. FARIDA drain emptied for 10ml. Pt with no c/o at this time.
--- NOTE | 2024-07-14 16:54 | PTCARENOTE ---
Pt given scheduled tylenol dose. Pts at bedside. Awaiting transfer to [facility]. FARIDA drain emptied for 10ml. Pt with no c/o at this time.
[2024-07-14] MEDS: LIPITOR 40 MG PO (17:06)
--- NOTE | 2024-07-14 17:24 | PTCARENOTE ---
Report called to Betzaida ROSE, pt transported in bed to [facility].
[2024-07-14 17:26] VITALS: BP 99/73
[2024-07-14] MEDS: CARDURA 1 MG PO (23:00)
[2024-07-14 23:04] VITALS: BP 100/69
[2024-07-15] MEDS: LR 1000 IV (03:26)
[2024-07-15] MEDS: TYLENOL 650 MG PO ×6 (03:44→23:36)
[2024-07-15] MEDS: MYLICON 80 MG PO (04:54)
[2024-07-15] MEDS: ZOSYN 50 IV ×4 (04:54→23:36)
[2024-07-15 07:08] LABS: % Basophils 0.5 % (0-2); % Eosinophils 5.8 % (0-6); % Immature Granulocytes 0.4 % (0-0.5); % Lymphocytes 13.4 % (20.5-51.1); % Monocytes 9.9 % (1.7-9.3); Absolute Eosinophils 0.4 10^3/uL (0-0.7); Absolute Monocytes 0.7 10^3/uL (0.1-0.6); Absolute Neutrophils 5.2 10^3/uL (1.4-6.5); Hematocrit 32.9 % (39.0-52.0); Hemoglobin 10.8 g/dL (13.0-18.0); Mean Corp Hgb Conc. 32.8 g/dL (33.0-37.0); Mean Corpuscular Volume 97.6 fL (80.0-94.0); Mean Platelet Volume 10.8 fL (7.4-10.4); Nucleated Red Blood Cells % 0 % (-); Platelet Count 140 10^3/uL (130-400); Red Blood Cell Count 3.37 10^6/uL (4.70-6.10); Red Cell Dist. Width 13.2 % (11.5-14.5); White Blood Cell Count 7.5 10^3/uL (4.8-10.8)
[2024-07-15 07:21] LABS: Blood Urea Nitrogen 24 mg/dl (9-20); Calcium 8.4 mg/dl (8.4-10.2); Carbon Dioxide 32 mmol/L (22-30); Chloride 103 mmol/L (98-107); Estimated Creatinine Clearance 75 ml/min; Glucose 105 mg/dl (70-99); Potassium 3.4 mmol/L (3.5-5.1); Sodium 140 mmol/L (135-145); eGFR > 60.00
[2024-07-15 07:52] VITALS: BP 107/75
[2024-07-15 08:28] LABS: ALT (SGPT) 24 U/L (0-50); AST (SGOT) 44 U/L (17-59); Albumin 2.8 g/dl (3.5-5.0); Alkaline Phosphatase 61 U/L (38-126); Direct Bilirubin 0.3 mg/dl (0.0-0.4); Total Bilirubin 1.2 mg/dl (0.2-1.3); Total Protein 5.4 g/dl (6.3-8.2)
[2024-07-15] MEDS: KCL 40 MEQ PO ×2 (08:56→23:36)
[2024-07-15] MEDS: ASPIR LOW (ENTERIC COATED) 81 MG PO (08:57)
[2024-07-15] MEDS: HEPARIN 5000 UNITS SC ×2 (08:57→20:39)
[2024-07-15] MEDS: COREG 3.125 MG PO ×2 (10:11→18:27)
--- NOTE | 2024-07-15 11:01 | W.PN.GS2 ---
Addendum entered and electronically signed by Gregory Ayala MD 07/15/24 11:46:
I saw and examined the patient.
The Parks Recreation Director's note was reviewed and I agree with the note.
Comment: Doing well. Abd soft, approp ttp, incisions cdi, drain non-bilious. OK to adv to LFD. Cont abx as below. Dispo planning.
Original Note:
Today's Communication / Plan
-
Advance diet
Assessment / Plan
-
Patient is an 83 yo M p/w acute cholecystitis, now POD#2 s/p laparoscopic subtotal cholecystectomy
Afebrile, tachycardia noted
h/h stable, no leukocytosis
FARIDA nonbilious with SSF present
-- Advance to LFD
-- Pain control: Tylenol, Tramadol
-- Ok to resume Plavix tomorrow
-- Coreg resumed this AM
-- Abx: Zosyn, anticipate 7 days post-op (ok to convert to PO upon d/c)
-- IVF per Hospitalist
-- DVT: Heparin sq
-- FARIDA drain to remain in place for at least 1 week post-op, CM for VNA arrangements
Subjective Data
-
Date of Service: July 15, 2024
Patient seen and examined at bedside with Dr Ayala. Denies n/v. Tolerating liquids. Minimal discomfort
Objective Data
-
Intake and Output
07/14/24 07/15/24 07/16/24
06:59 06:59 06:59
Intake Total 1340 / 1340 980 / 980
Output Total 500 / 500 590 / 590
Balance 840 / 840 390 / 390
Intake:
Oral fluids 240 / 240 930 / 930
IV fluids (Total) 1000 / 1000
IV piggybacks 100 / 100 50 / 50
Output:
Drain Output (Total)
Right Abdomen Stevan-Echeverria A 15 15
Urine, Voided 500 / 500 575 / 575
Other:
Number of approximated SMALL 2
amounts of urine
How many times incontinent 1
MODERATE amount urine
Vital Signs
Temp Pulse Resp BP Pulse Ox
98.2 F 120 20 107/75 94
07/15/24 07:52 07/15/24 07:52 07/15/24 07:52 07/15/24 07:52 07/15/24 07:52
Lab Results
07/15/24 06:15
07/15/24 06:15
Calcium 8.4 mg/dl (8.4-10.2) 07/15/24 06:15
Total Bilirubin 1.2 mg/dl (0.2-1.3) 07/15/24 07:33
Direct Bilirubin 0.3 mg/dl (0.0-0.4) 07/15/24 07:33
AST 44 U/L (17-59) 07/15/24 07:33
ALT 24 U/L (0-50) 07/15/24 07:33
Alkaline Phosphatase 61 U/L (38-126) 07/15/24 07:33
Total Protein 5.4 g/dl (6.3-8.2) L 07/15/24 07:33
Albumin 2.8 g/dl (3.5-5.0) L 07/15/24 07:33
Physical Exam
-
NAD
ABD soft, expected incisional tenderness, ND
Incision well approximated, intact glue
FARIDA with SSF
--- NOTE | 2024-07-15 11:16 | W.PN.HOSP.TC ---
Today's Communication/Plan
-
Transition to Augmentin to complete 7-day postoperative course
Incentive spirometer and out of bed as tolerated
Resume carvedilol today
Resume Plavix on 07/16
Wean oxygen
Assessment / Plan
Assessment / Plan
#Acute calculus cholecystitis
-Presented with persistent nausea and vomiting; CT with cholelithiasis and gallbladder neck and inflammation
-Upon arrival was started on IV Zosyn; made n.p.o. and started on IVF with antiemetics
-Surgery consulted, initial plan for PERC antoni though concerns with bowel loop overlying gallbladder
-Surgery repeating CT scan to reassess target for percutaneous cholecystotomy
-Percutaneous cholecystotomy was unable to be performed due to overlying bowel loop
-HIDA scan was ordered this morning to assess cystic duct anatomy; added to the OR list on 07/14, tentatively
-Leukocytosis and nausea have improved with IV antibiotic; HIDA did not visualize gallbladder
Plan
-Transition to oral Augmentin to complete 7-day postoperative antibiotic course
-Trend CBC and temperature curve
-Serial abdomen exams
-Continue with antiemetics and analgesics
-Resume home Plavix morning of 07/16
#Acute hypoxemic respiratory insufficiency
-Suspect that this is related to atelectasis, deconditioning in the postoperative state
-He does have a history of IPF though does not seem to be decompensated
-Chest x-ray today without signs of pneumonia, pulmonary edema; showed chronic fibrotic findings
-Encourage incentive spirometer and wean oxygen as possible
-SpO2 goal >90%
#Sinus tachycardia
#Chronic RBBB
-Heart rate increased overnight from WNL to near 120/min; blood pressure stable, no symptoms
-Suspected this is related with holding his carvedilol, ECG showed sinus tachycardia today
-Will resume carvedilol and continue to monitor on telemetry
-Consider uptitrating carvedilol dose if blood pressure allows
#CAD s/p CABG and PCI
#Dyslipidemia
-Home medications include beta-turner, DAPT, high intensity statin
-Last had PCI in August 2023 with YOKASTA placed into saphenous venous graft
-Upon admission Plavix and carvedilol held in preparation of OR; continued on aspirin and statin
-No signs of ACS at this time
-LDL goal <70
#IPF
-History of mild pulmonary fibrosis; not on home O2 or antifibrotic therapy
-No signs of exacerbation at this time
-Will monitor for symptoms
#GERD
#H/O H. pylori (+) gastritis
-Home medications include esomeprazole every other day
-Transition to IV PPI daily while inpatient
-No signs of significant abdomen pain or bleeding
#Primary hypertension
-Home medications include carvedilol, doxazosin
-No known history of hypertensive systemic disease
-Blood pressure currently adequate; resumed on home meds
#H/O prostate cancer s/p XRT
#H/O VT s/p AICD
DVT prophylaxis: SCDs
Diet: CLD, advance slowly
CODE STATUS: Full code
Disposition: Home care
Anticipated Discharge: Within 24 hours
Subjective/Interval History
-
Date of Service: July 15, 2024
Seen and examined at the bedside. No acute events reported overnight. Heart rate increased overnight, near 120/min today. Otherwise stable, on 2 L O2 with SpO2 mid 90s
Chest x-ray today showed diffuse interstitial opacities consistent with fibrosis, no pleural effusions or edema. Patient was resumed on his carvedilol
He states he feels well and denies any acute complaints. Only noted his heart rate was fast as it appeared so on his Apple Watch
Objective Data
-
Labs:
Laboratory Results
07/15/24 07/15/24
06:15 07:33
WBC 7.5
Hgb 10.8 L
Hct 32.9 L
Plt Count 140
Sodium 140
Potassium 3.4 L
Chloride 103
Carbon Dioxide 32 H
BUN 24 H
Creatinine 0.5 L
Glucose 105 H
Calcium 8.4
Total Bilirubin 1.2
AST 44
ALT 24
Alkaline Phosphatase 61
Vital Signs:
Vital Signs
Temp Pulse Resp BP Pulse Ox
98.2 F 120 20 107/75 94
07/15/24 07:52 07/15/24 07:52 07/15/24 07:52 07/15/24 07:52 07/15/24 07:52
I&O
07/14/24 07/15/24 07/16/24
06:59 06:59 06:59
Intake Total 1340 / 1340 980 / 980
Output Total 500 / 500 590 / 590
Balance 840 / 840 390 / 390
Review of Systems
-
History Source: Patient
All other systems: Reviewed and negative
Physical Exam
-
General: Well Developed, No Apparent Distress, Comfortable and Other (Frail-appearing)
HEENT: Normocephalic, Atraumatic, Moist Mucous Membranes, Anicteric and Oxygen
Respiratory: Crackles and Non Labored Respirations; Negative Wheezes, Rales, Rhonchi or Accessory Resp Muscle Use
Cardiac: Regular Rhythm, S1/S2 and Tachycardic; Negative Murmur, Rub, JVD or Gallop
GI: Soft, Nontender, Nondistended and Normal Bowel Sounds
Musculoskeletal: No Clubbing, No Cyanosis and No Edema
Skin: Warm, Dry and Normal Turgor; Negative Rash
Neuro: AO x 3 and Nonfocal/Grossly Intact; Negative Tremors
Psych: Calm
Data Reviewed
-
Labs: Labs Reviewed by me and Discussed with Patient
[2024-07-15 15:36] VITALS: BP 119/74
[2024-07-15 15:49] VITALS: BP 104/68; PULSE 122
[2024-07-15 17:57] VITALS: BP 182/92
[2024-07-15 17:58] VITALS: BMI 26.2
[2024-07-15] MEDS: LIPITOR 40 MG PO (18:22)
[2024-07-15 23:16] VITALS: BP 102/73
[2024-07-15] MEDS: CARDURA 1 MG PO (23:35)
[2024-07-16] MEDS: TYLENOL PO ×4 (04:56→13:39)
[2024-07-16] MEDS: ZOSYN 50 IV (04:57)
[2024-07-16 07:00] VITALS: BP 107/70
[2024-07-16 08:20] LABS: % Basophils 0.7 % (0-2); % Eosinophils 7.1 % (0-6); % Immature Granulocytes 0.4 % (0-0.5); % Lymphocytes 15.2 % (20.5-51.1); % Monocytes 9.7 % (1.7-9.3); % Neutrophils 66.9 % (42.2-75.2); Absolute Basophils 0.1 10^3/uL (0-0.2); Absolute Eosinophils 0.6 10^3/uL (0-0.7); Absolute Lymphocytes 1.3 10^3/uL (1.2-3.4); Absolute Monocytes 0.8 10^3/uL (0.1-0.6); Absolute Neutrophils 5.7 10^3/uL (1.4-6.5); Hematocrit 34.4 % (39.0-52.0); Hemoglobin 11.4 g/dL (13.0-18.0); Mean Corp Hgb Conc. 33.1 g/dL (33.0-37.0); Mean Corpuscular Hgb 32.2 pg (27.0-31.0); Mean Corpuscular Volume 97.2 fL (80.0-94.0); Mean Platelet Volume 10.7 fL (7.4-10.4); Nucleated Red Blood Cells % 0 % (-); Platelet Count 159 10^3/uL (130-400); Red Blood Cell Count 3.54 10^6/uL (4.70-6.10); White Blood Cell Count 8.5 10^3/uL (4.8-10.8)
[2024-07-16 08:52] LABS: Blood Urea Nitrogen 29 mg/dl (9-20); Calcium 8.9 mg/dl (8.4-10.2); Carbon Dioxide 31 mmol/L (22-30); Chloride 103 mmol/L (98-107); Estimated Creatinine Clearance 75 ml/min; Glucose 102 mg/dl (70-99); Potassium 4.4 mmol/L (3.5-5.1); Sodium 141 mmol/L (135-145); eGFR > 60.00
[2024-07-16] MEDS: COREG 3.125 MG PO (10:07)
[2024-07-16] MEDS: ASPIR LOW (ENTERIC COATED) 81 MG PO (10:07)
[2024-07-16] MEDS: IMODIUM 2 MG PO (10:07)
[2024-07-16] MEDS: HEPARIN 5000 UNITS SC (10:08)
[2024-07-16] MEDS: TYLENOL 650 MG PO (10:08)
[2024-07-16] MEDS: AUGMENTIN 875 MG/125 MG 1 TABLET PO (10:08)
[2024-07-16] MEDS: PLAVIX 75 MG PO (10:08)
--- NOTE | 2024-07-16 10:53 | W.PN.HOSP.TC ---
Today's Communication/Plan
-
Start Eliquis for new onset AF
Continue with carvedilol
Transfer to telemetry
Cardiology evaluation
Transition to Augmentin through 07/20
Imodium for soft bowel movements
Assessment / Plan
Assessment / Plan
#New onset atrial fibrillation
-[id number] 4; heart rate WNL and regular this morning, ECG with new AF
-Will begin Eliquis 5 mg twice daily, discontinue aspirin to avoid triple therapy
-Continue with carvedilol at current dose, consider increase if he develops RVR
-Asymptomatic concerning A-fib at this time, transferred to telemetry
-Cardiology consulted, consider TTE here on Thursday versus OP
#Acute calculus cholecystitis -- POD 3
-Presented with persistent nausea and vomiting; CT with cholelithiasis and gallbladder neck and inflammation
-Upon arrival was started on IV Zosyn; made n.p.o. and started on IVF with antiemetics
-Leukocytosis and nausea have improved with IV antibiotic; HIDA did not visualize gallbladder
-Transitioned IV Zosyn to Augmentin twice daily, through end of 07/20
#Acute hypoxemic respiratory insufficiency
-Suspect that this is related to atelectasis, deconditioning in the postoperative state
-He does have a history of IPF though does not seem to be decompensated
-Chest x-ray today without signs of pneumonia, pulmonary edema; showed chronic fibrotic findings
-Encourage incentive spirometer and wean oxygen as possible
-SpO2 goal >90%
#Diarrhea/soft stools
-Patient complained of soft 'a lot of like' stools today that followed initial hard bowel movement
-Likely associated with antibiotics and clear liquid diet that he was previously
-Will start Imodium as needed, low concern for infectious etiology
-Monitor clinically
#Sinus tachycardia
#Chronic RBBB
-Heart rate increased overnight from WNL to near 120/min; blood pressure stable, no symptoms
-Suspected this is related with holding his carvedilol, ECG showed sinus tachycardia today
-Will resume carvedilol and continue to monitor on telemetry
-Consider uptitrating carvedilol dose if blood pressure allows
#CAD s/p CABG and PCI
#Dyslipidemia
-Home medications include beta-turner, DAPT, high intensity statin
-Last had PCI in August 2023 with YOKASTA placed into saphenous venous graft
-Holding aspirin due to new AF and avoidance of triple AC
-No signs of ACS at this time
-LDL goal <70
#IPF
-History of mild pulmonary fibrosis; not on home O2 or antifibrotic therapy
-No signs of exacerbation at this time
-Will monitor for symptoms
#GERD
#H/O H. pylori (+) gastritis
-Home medications include esomeprazole every other day
-Transition to IV PPI daily while inpatient
-No signs of significant abdomen pain or bleeding
#Primary hypertension
-Home medications include carvedilol, doxazosin
-No known history of hypertensive systemic disease
-Blood pressure currently adequate; resumed on home meds
#H/O prostate cancer s/p XRT
#H/O VT s/p AICD
DVT prophylaxis: Eliquis
Diet: Low-fat
CODE STATUS: Full code
Disposition: Home care
Anticipated Discharge: 24 - 48 hours
Subjective/Interval History
-
Date of Service: July 16, 2024
Seen and examined at the bedside. No acute events reported overnight. AFVSS this morning on 1 L oxygen with SpO2 min 90
Heart rate was irregular, obtain ECG that showing new onset atrial fibrillation. No symptoms associated. Heart rate currently WNL but irregular
Patient complains of some diarrhea that started today, not watery but soft per his history. Denies fevers or chills, denies any melena or hematochezia
Objective Data
-
Labs:
Laboratory Results
07/16/24
07:57
WBC 8.5
Hgb 11.4 L
Hct 34.4 L
Plt Count 159
Sodium 141
Potassium 4.4 D
Chloride 103
Carbon Dioxide 31 H
BUN 29 H
Creatinine 0.7
Glucose 102 H
Calcium 8.9
Vital Signs:
Vital Signs
Temp Pulse Resp BP Pulse Ox
98.1 F 85 20 107/70 100
07/16/24 07:00 07/16/24 10:07 07/16/24 07:00 07/16/24 10:07 07/16/24 07:00
I&O
07/15/24 07/16/24 07/17/24
06:59 06:59 06:59
Intake Total 980 / 980 1060 / 1060
Output Total 590 / 590
Balance 390 / 390 1050 / 1050
Review of Systems
-
History Source: Patient
All other systems: Reviewed and negative
Physical Exam
-
General: Well Developed, No Apparent Distress, Appears Chronically Ill and Other (Frail appearing)
HEENT: Normocephalic, Atraumatic and Moist Mucous Membranes
Respiratory: Crackles and Non Labored Respirations; Negative Accessory Resp Muscle Use
Cardiac: S1/S2 and Irregular Rhythm; Negative Murmur, Rub, JVD, Gallop or Tachycardic
GI: Soft, Nontender, Nondistended and Normal Bowel Sounds
Musculoskeletal: No Clubbing, No Cyanosis and No Edema
Skin: Warm, Dry and Normal Turgor; Negative Rash
Neuro: AO x 3 and Nonfocal/Grossly Intact; Negative Tremors
Psych: Calm
Data Reviewed
-
Labs: Labs Reviewed by me and Discussed with Patient
--- NOTE | 2024-07-16 11:25 | CON.CAR ---
Consultation
Consultation Request
Date/Time Consultation Requested: 07/16/2024
Date/Time Consultation Performed: 07/16/24
Reason for Consultation: new onset Atrial fibrillation
Medical History
-
Chief Complaint: abdominal pain
History of Present Illness:
83 yo M p/w acute cholecystitis, s/p laparoscopic subtotal cholecystectomy on 07/14/24 with with history of coronary disease, hypertension, pulmonary fibrosis, CVA, coronary disease status post CABG, presented with syncope with sustained VT/V-fib
status post left heart cath with PCI to OM and subsequent PCI to SVG to RPDA that got complicated by coronary perforation requiring multiple covered stents s/p RV pacemaker lead extraction and upgrade to ICD placement on 09/23/23 is in post op period
from his Lap Antoni and is noted to have atrial fibrillation.
Patient had acute hypoxic respiratory insufficiency and was thought to be related to atelectasis. Patient also has a history of interstitial pulmonary fibrosis but is maintaining oxygen saturations on nasal cannula with humidified oxygen. He also
had severe constipation post surgery and had finally good relief yesterday. Now he is having too many loose stools.
This morning patient was noted to be in atrial fibrillation. He is asymptomatic. But his rhythm strip and EKG is consistent with atrial fibrillation. He is on aspirin and Plavix but has never been on anticoagulation therapy.
He is willing to continue his anticoagulation therapy if is needed. We discussed plans of anticoagulation therapy to reduce the risk of stroke.
Past Medical History
Past Medical History: Arrhythmias (History of VT/VF arrest., New onset of atrial fibrillation, severe sick sinus syndrome status post pacemaker currently paced with dual-chamber ICD.), CAD (Status post CABG and PCI last PCI in August 2023 with YOKASTA to
SVG), COPD (Interstitial pulmonary fibrosis), CVA, GERD, HTN, Hypercholesterolemia and Other (Prostate cancer)
Past Surgical History: Cardiac and Cholecystectomy
Social History
Tobacco: Non-Smoker
Alcohol: None
Drug: None
Personal:
Living: With Family
Family History
Family History: Reviewed & Not Pertinent
Allergies / Home Medications
Allergy/AdvReac Type Severity Reaction Status Date / Time
No Known Allergies Allergy Verified 11/11/23 11:13
�Medication �Instructions �Recorded �Confirmed �Type
soy isoflavone 100 mg capsule (Soy 100 mg PO DAILY Supplement 07/23/11 07/12/24 History
Isoflavones)
esomeprazole magnesium 20 mg 20 mg PO Q48H@0800 12/07/18 07/12/24 History
capsule,delayed release (Nexium) Gastrointestinal issue
allopurinol 100 mg tablet 100 mg PO DAILY Gout 05/02/20 07/12/24 History
atorvastatin 40 mg tablet 40 mg PO QPM High cholesterol 05/02/20 07/12/24 History
aspirin 81 mg tablet,delayed 81 mg PO DAILY Blood clot 05/08/20 07/12/24 Rx
release prevention/tx #90 tabs
carvedilol 3.125 mg tablet (Coreg) 3.125 mg PO BID #180 tabs 05/08/20 07/12/24 Rx
chlorpheniramine maleate 4 mg 4 mg PO HSPRN PRN phlegm 08/23/23 07/12/24 History
tablet
cholecalciferol (vitamin D3) 25 25 mcg PO DAILY Supplement 08/23/23 07/12/24 History
mcg (1,000 unit) tablet
cyanocobalamin (vitamin B-12) 500 500 mcg PO BID Supplement 08/23/23 07/12/24 History
mcg tablet
folic acid 400 mcg tablet 0.4 mg PO DAILY Supplement 08/23/23 07/12/24 History
omega 3-cfa-sqb-fish oil 1,000 mg 1 cap PO DAILY Supplement 08/23/23 07/12/24 History
(120 mg-180 mg) capsule (Fish Oil)
psyllium 1 tsp PO DAILY@1100 08/23/23 07/12/24 History
Gastrointestinal Issue
acetaminophen 325 mg tablet 650 mg (2 x 325 mg) PO QIDPRN PRN 08/28/23 07/12/24 Rx
mild pain #0 tabs
clopidogrel 75 mg tablet 75 mg PO DAILY Blood clot 08/28/23 07/12/24 Rx
prevention/tx #30 tabs
doxazosin 1 mg tablet 1 mg PO HS Blood pressure #0 tabs 08/28/23 07/12/24 Rx
Review of Systems
-
All other systems: Negative unless noted
Physical Exam
Vital Signs
Temp Pulse Resp BP Pulse Ox
98.1 F 85 20 107/70 100
07/16/24 07:00 07/16/24 10:07 07/16/24 07:00 07/16/24 10:07 07/16/24 07:00
Lab Results
07/16/24 07:57
07/16/24 07:57
Physical Exam
General: Well Developed, Well Nourished, No Apparent Distress and Poor Appetite
HEENT: Normocephalic and Moist Mucous Membranes
Respiratory: Clear and Non Labored Respirations
Cardiac: S1/S2, Irregular Rhythm and Murmur
GI: Soft, Non Tender and Normal Bowel Sounds
Musculoskeletal: No Clubbing, No Cyanosis and No Edema
Skin: Warm and Dry
Neuro: Awake, Alert, Oriented, AO x 3 and No Motor Deficits
Psych: Calm
Impression / Plan
-
83 yo M p/w acute cholecystitis, s/p laparoscopic subtotal cholecystectomy on 07/14/24 with with history of coronary disease, hypertension, pulmonary fibrosis, CVA, coronary disease status post CABG, presented with syncope with sustained VT/V-fib
status post left heart cath with PCI to OM and subsequent PCI to SVG to RPDA that got complicated by coronary perforation requiring multiple covered stents s/p RV pacemaker lead extraction and upgrade to ICD placement on 09/23/23 is in post op period
from his Lap Antoni and is noted to have atrial fibrillation.
New Onset atrial fibrillation:
- Atrial fibrillation with rate controlled on Coreg 3.125mg BID
- On ASA 81 mg
- CHADSvasc score is 6 - age, CAD, HTN, CVA
- Will recommend to stop ASA and start Eliquis 5 mg BID
- No plan for rhythm control in the acute post op setting.
- Even short tem Amiodarone in post op lap antoni might cause liver issues and rates are well controlled.
- Not a candidate for amiodarone given patient's lung disease
- If AF continues then will need rhythm control but expect to come out spontaneously.
- ICD was interrogated, AF started on 07/14/24 at 3 am
- Now post op day # 2 and Ok to start Eliquis.
Ventricular tachycardia / Cardiac arrest
-Presented with syncope with VT and VF consistent with cardiac arrest in 2023
-Left heart cath shows stable coronary disease with PCI done to OM and SVG to RPDA likely not responsible for the VT.
-s/p PPM lead extraction and ICD placement - [employer] - 09/23/23
-Subclavian vein occluded was able to open and place ICD lead
-Continue Coreg.
Sick sinus syndrome status post dual-chamber pacemaker
-[employer]onic dual-chamber pacemaker was initially implanted in April 2020 - extracted and upgraded to dual chamber ICD on 09/23/23
-Patient is not pacemaker dependent.
Hypertension
-Stable.
-Continue Coreg.
Coronary disease
-Status post CABG and recent PCI on 08/26/2023 -PCI to SVG complicated by type III coronary perforation requiring 3 overlapping covered stents.
-Stable coronary disease.
-On aspirin, Plavix, statin, Coreg, Cardura
- Will switch ASA to Eliquis.
Data Reviewed
-
EKG: Tracing Personally Visualized and interpreted
Radiology: Report Reviewed by me
Labs: Labs Reviewed by me
Old Records: Reviewed
--- NOTE | 2024-07-16 11:59 | W.PN.UPDATE ---
Update Note
Progress Note Update
Discussed with vascular surgery. Patient may still have vascular surgery. Will stop Eliquis and give Lovenox instead of heparin. Await decision regarding possible surgery.
--- NOTE | 2024-07-16 12:23 | W.CARD.DEVCH ---
Cardiac Device Check
-
Device: Implanted Cardioverter-Defibrillator
Plating Department Helper: [employer]
The patient's device dual chamber ICD was interrogated personally. The device had normal function. No abnormalities seen.
New onset of AF noted from 07/14/24.
[2024-07-16] MEDS: METAMUCIL, KONSYL 1 PACKET PO (13:34)
--- NOTE | 2024-07-16 14:13 | CM ---
Addendum entered by KEON Bojra 07/16/24 14:16:
[facility]
Original Note:
Received update that patient is medically cleared for discharge. Met with patient and his who was at bedside. Patient's son coming in to transport home. Patient is agreeable to discharge. IMM reviewed, signed and on chart.
Plan: Case management will continue to follow and assist with discharge planning. Home.
--- NOTE | 2024-07-16 14:32 | W.DCSUMMARY ---
Discharge Summary
Discharge Data
Date of Admission: 07/11/24
Date of Discharge: 07/16/24
Total time spent discharging patient (in min): 38
-
Pending Results: No
Hospital Course
Discharging Physician :�Max Monroe DO
Disposition :���� Home care
Principal Discharge diagnosis :�
Acute calculus cholecystitis s/p laparoscopic cholecystectomy
New onset atrial fibrillation
Acute hypoxemic respiratory insufficiency
Chronic Discharge diagnosis :�
CAD s/p CABG
VT s/p AICD
Right carotid stenosis
Idiopathic pulmonary fibrosis
GERD/gastritis
H/O H. pylori positivity
H/O prostate cancer s/p XRT
Hypertension
Dyslipidemia
Hospital Course :�
83-year-old male that presented to the hospital with a fall at home, persistent nausea and vomiting over multiple days. Abdomen x-ray without signs of obstruction. Abdomen ultrasound was limited due to presence of bowel gas. CT A/P with IV
contrast showed a stone within the gallbladder neck and pericholecystic fluid consistent with acute cholecystitis, 4.2 cm stable cystic pancreatic lesion. Had HIDA scan performed that was unable to visualize gallbladder. Started on IV Zosyn for
acute cholecystitis and surgery was consulted. With significant cardiovascular risk factors initially preference for percutaneous cholecystotomy rather than laparoscopic cholecystectomy. Surgery unable to perform however due to overlying loop of
bowel covering the gallbladder. Was taken to the OR evening of 07/13/2024 for laparoscopic cholecystectomy with removal of severely inflamed gallbladder. Was able to tolerate diet following procedure and had hoahaoism of bowel status. Was
transition from IV Zosyn to oral Augmentin to complete 7-day postoperative course. On 07/16/2024 was noted to have irregular rhythm on physical exam. ECG at that time showed new onset atrial fibrillation with RVR. Eliquis 5 mg twice daily was
started for anticoagulation on POD 3, aspirin discontinued to avoid triple therapy. Quickly became rate controlled with his home dose carvedilol. Evaluated by cardiology who arrange for outpatient follow-up.
Consultants :
General surgery: Parminder Dubois MD
Cardiology: Carmelina Cabrera MD
Important imaging findings :�
CT A/P with IV contrast (06/11/2024)
IMPRESSION: There is stone within the gallbladder neck with pericholecystic fluid and stranding in the surrounding fat consistent with acute cholecystitis. 4.2 cm cystic focus within the uncinate process of the pancreas, similar in appearance to
prior MRI. Dedicated nonemergent MRI abdomen may be considered for further evaluation. The urinary bladder is nondistended with apparent mild circumferential wall thickening which may be secondary to underdistention, however can be seen with
cystitis. Consider correlation with urinalysis. 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
HIDA (07/13/24)
IMPRESSION: The gallbladder is not clearly identified raising concern for cystic duct obstruction and acute cholecystitis. No evidence for common bile duct obstruction.
Procedure findings :�
Laparoscopic cholecystectomy (07/13/2024)
OPERATIVE FINDINGS:
1. Severely inflamed gallbladder with dense omental and duodenal adhesions.
2. Removal of anterior 90% of gallbladder wall, no bile leak, unable to clearly identify the cystic duct orifice.
3. 19-[place] Sarabjit drain into operative field.
Follow-up :
Follow-up in office with cardiology within 1 to 2 weeks of discharge from hospital for echocardiogram and maintenance of atrial fibrillation
Follow-up in office with general surgery the week following the procedure, referral was provided
Medication changes: Discontinued aspirin, started Eliquis 5 mg twice daily.
Continue with Augmentin 875-125 mg every 12 hours through the end of 07/20/2024
CBC within 5 to 7 days of discharge, results sent to PCP and mirror inspector
Discharge Plan
-
Patient Disposition: Home (Routine Discharge)
Discharge Diagnosis/Procedures: Cholecystitis status post laparoscopic subtotal cholecystectomy
Atrial fibrillation
Hypoxemia
Condition: Fair
Diet: As tolerated and Low Fat
Additional Diets: If you notice loose stools after surgery, switch to a low fat diet
Activity: No strenuous activity
Additional Activity: Do not lift over 15lbs for the next 2-3 weeks
Driving Restrictions: Not until seen by your Dr
Bathing Restrictions: OK to Shower
Blood Work: CBC 5 days after discharge from the hospital
Other Services: VN
Activity Restrictions/Additional Instructions:
Call your surgeon if you notice the color of drainage from your drain changes to green. The drain will be removed in your surgeon's office approximately one week after your surgery date, please call the number below to arrange.
If you develop dark black stools, or bright red blood in your stool then come back to the emergency department
Instructions: How to care for a closed suction drain
Referrals:
Betito Merchant MD [Active] - in one to two weeks
Parminder Dubois MD [Active] - in less than 1 week
Tito Villatoro MD [Family Provider] -
Additional Discharge Medication Instructions: Continue Augmentin 875-125 mg every 12 hours through the end of 07/20/2024
Start Eliquis 5 mg twice daily, every day, indefinitely
Use [id number] Imodium as needed if soft stools persist
Stop taking aspirin
Prescriptions:
New
amoxicillin-pot clavulanate 875-125 mg Tablet
1 tab PO Q12 5 Days Qty: 10 0RF
apixaban 5 mg tablet
5 mg PO BID 30 Days Qty: 60 0RF
Continued
Soy Isoflavones 100 MG capsule
100 mg PO DAILY
esomeprazole magnesium [Nexium] 20 MG capsule,delayed release(DR/EC)
20 mg PO Q48H@0800
atorvastatin 40 MG tablet
40 mg PO QPM
allopurinol 100 MG tablet
100 mg PO DAILY
carvedilol [Coreg] 3.125 MG tablet
3.125 mg PO BID Qty: 180 3RF
chlorpheniramine maleate 4 mg Tablet
4 mg PO HSPRN PRN (Reason: phlegm)
folic acid 400 mcg Tablet
0.4 mg PO DAILY
cyanocobalamin (vitamin B-12) 500 mcg Tablet
500 mcg PO BID
psyllium Powder
1 tsp PO DAILY@1100
cholecalciferol (vitamin D3) 25 mcg (1,000 unit) Tablet
25 mcg PO DAILY
omega 7-nqt-arj-fish oil [Fish Oil] 1,000 mg (120 mg-180 mg) Capsule
1 cap PO DAILY
clopidogrel 75 mg Tablet
75 mg PO DAILY Qty: 30 0RF
acetaminophen 325 mg Tablet
650 mg PO QIDPRN PRN (Reason: mild pain) Qty: 0 0RF
doxazosin 1 mg Tablet
1 mg PO HS Qty: 0 0RF
Discontinued
aspirin 81 MG tablet,delayed release (DR/EC)
81 mg PO DAILY Qty: 90 0RF
Discharge Orders:
Discharge Patient (As Directed); Ordered 07/16/24
Ordered By: Max Monroe
Discharge Date and Time
Print Language: WALLISIAN
--- NOTE | 2024-07-16 14:53 | W.PN.GS2 ---
Today's Communication / Plan
-
dispo planning
Assessment / Plan
-
Patient is an 83 yo M p/w acute cholecystitis, now POD#3 s/p laparoscopic subtotal cholecystectomy
AFVSS
Labs stable
FARIDA nonbilious with SSF present
-- Continue LFD
-- Pain control: Tylenol, Tramadol
-- Ok to resume Plavix
-- Abx: Zosyn, anticipate 7 days post-op (ok to convert to PO upon d/c)
-- DVT: Heparin sq
-- FARIDA drain to remain in place for at least 1 week post-op, CM for VNA arrangements
Ok for discharge from surgical standpoint with FARIDA drain in place on PO abx when medically ready
Subjective Data
-
Date of Service: July 16, 2024
Patient seen and examined at bedside with Dr. Brandt, spouse present. Denies n/v. Tolerating diet. Does feel a bit tired. Some incisional soreness. Abdominal discomfort generally relieved when he was able to pass a large BM.
Objective Data
-
Intake and Output
07/15/24 07/16/24 07/17/24
06:59 06:59 06:59
Intake Total 980 / 980 1060 / 1060
Output Total 590 / 590
Balance 390 / 390 1050 / 1050
Intake:
Oral fluids 930 / 930 960 / 960
IV piggybacks 50 / 50 100 / 100
Output:
Drain Output (Total)
Right Abdomen Stevan-Echeverria A
Urine, Voided 575 / 575
Other:
Number of approximated LARGE 3
amounts of urine
How many times incontinent 1
MODERATE amount urine
Number of unmeasured liquid
stools
Rectum 4
Vital Signs
Temp Pulse Resp BP Pulse Ox
98.1 F 85 20 107/70 100
07/16/24 07:00 07/16/24 10:07 07/16/24 07:00 07/16/24 10:07 07/16/24 07:00
Lab Results
07/16/24 07:57
07/16/24 07:57
Calcium 8.9 mg/dl (8.4-10.2) 07/16/24 07:57
Total Bilirubin 1.2 mg/dl (0.2-1.3) 07/15/24 07:33
Direct Bilirubin 0.3 mg/dl (0.0-0.4) 07/15/24 07:33
AST 44 U/L (17-59) 07/15/24 07:33
ALT 24 U/L (0-50) 07/15/24 07:33
Alkaline Phosphatase 61 U/L (38-126) 07/15/24 07:33
Total Protein 5.4 g/dl (6.3-8.2) L 07/15/24 07:33
Albumin 2.8 g/dl (3.5-5.0) L 07/15/24 07:33
Physical Exam
-
NAD
ABD soft, expected incisional tenderness, ND
Incision well approximated, intact glue
FARIDA with SSF
[2024-07-16 15:13] VITALS: BP 109/68
--- NOTE | 2024-07-16 18:19 | PTCARENOTE ---
Oxygen removed to trial RA pulsox. Pulsox 93% on RA at rest. Pt agitated about having to wait to be discharged and refused to ambulate to test pulsox on ambulation. Dr. Monroe at the bedside during this conversation and he stated okay to discharge
without completing it. Iv discontinued. Tele pack removed. Discharge instructions printed and reviewed with patient and spouse who verbalized understanding. FARIDA drain care education demonstrated. Pt transported off the unit via wheelchair with all
belongings by RN.
== END 2024-07-16 17:36 | disposition home health service (06) | DRG 419 ==
LOC: 4 EAST ACU 23:55
PROVIDERS: Internal Medicine; Nurse Practitioner; Student in an Organized Health Care Education/Training Program; ADMITTING PHYSICIAN Internal Medicine; ATTENDING PHYSICIAN Internal Medicine; EMERGENCY PHYSICIAN Emergency Medicine; FAMILY PHYSICIAN Internal Medicine; OTHER PHYSICIAN Internal Medicine Cardiovascular Disease; OTHER PHYSICIAN Surgery
PROC: 0FT44ZZ Resection of Gallbladder, Percutaneous Endoscopic Approach (ICD-10-PCS; 2024-07-13)
PROC: 4B02XTZ Measurement of Cardiac Defibrillator, External Approach (ICD-10-PCS; 2024-07-16)
DX: K80.12 Calculus of gallbladder with acute and chronic cholecystitis without obstruction (principal); Z11.52 Encounter for screening for COVID-19; K66.0 Peritoneal adhesions (postprocedural) (postinfection); I48.91 Unspecified atrial fibrillation; Z95.1 Presence of aortocoronary bypass graft; Z95.5 Presence of coronary angioplasty implant and graft; I25.10 Atherosclerotic heart disease of native coronary artery without angina pectoris; K21.9 Gastro-esophageal reflux disease without esophagitis; I10 Essential (primary) hypertension; E87.6 Hypokalemia; Z79.02 Long term (current) use of antithrombotics/antiplatelets; R09.02 Hypoxemia; R06.89 Other abnormalities of breathing; K59.00 Constipation, unspecified; Z79.01 Long term (current) use of anticoagulants; Z79.82 Long term (current) use of aspirin; Z79.899 Other long term (current) drug therapy; Z85.46 Personal history of malignant neoplasm of prostate; Z95.810 Presence of automatic (implantable) cardiac defibrillator
CPT/HCPCS: 88304; 71045; 74018; 74177; 76700; 76705; 78226; 80048; 80053; 80076; 82248; 82962; 83690; 85025; 85027; 87502; 87811; 93005; 96361; 96374; 96375; 96376; 97116; 97163; 97167; 97530; 99285; A9537; Q9967

== ENCOUNTER → 2024-07-20 11:02 | Outpatient (REF) | payer MEDICARE, SELFPAY ==
[2024-07-20 11:37] LABS: % Basophils 0.9 % (0-2); % Eosinophils 7.6 % (0-6); % Immature Granulocytes 0.9 % (0-0.5); % Lymphocytes 17.5 % (20.5-51.1); % Monocytes 9.7 % (1.7-9.3); % Neutrophils 63.4 % (42.2-75.2); Absolute Basophils 0.1 10^3/uL (0-0.2); Absolute Eosinophils 0.8 10^3/uL (0-0.7); Absolute Immature Granulocytes 0.1 10^3/uL (0-0.05); Absolute Lymphocytes 1.8 10^3/uL (1.2-3.4); Absolute Neutrophils 6.6 10^3/uL (1.4-6.5); Hemoglobin 11.5 g/dL (13.0-18.0); Mean Corp Hgb Conc. 32.9 g/dL (33.0-37.0); Mean Corpuscular Hgb 31.3 pg (27.0-31.0); Mean Corpuscular Volume 95.4 fL (80.0-94.0); Mean Platelet Volume 9.5 fL (7.4-10.4); Nucleated Red Blood Cells % 0 % (-); Platelet Count 304 10^3/uL (130-400); Red Blood Cell Count 3.67 10^6/uL (4.70-6.10); Red Cell Dist. Width 13.3 % (11.5-14.5); White Blood Cell Count 10.4 10^3/uL (4.8-10.8)
== END ==
LOC: REG 11:02
PROVIDERS: ATTENDING PHYSICIAN Internal Medicine
DX: D64.9 Anemia, unspecified (principal); R04.0 Epistaxis
CPT/HCPCS: 36415; 85025

== ENCOUNTER → 2024-08-09 06:45 | Outpatient (REF) | payer MEDICARE, SELFPAY | LOC: RSP 06:45 | PROVIDERS: ATTENDING PHYSICIAN Internal Medicine Pulmonary Disease; FAMILY PHYSICIAN Internal Medicine | DX: J84.112 Idiopathic pulmonary fibrosis (principal) | CPT/HCPCS: 94727; 94729; 88738; 94010 ==

== ENCOUNTER → 2024-09-08 10:47 | Outpatient (REF) | payer MEDICARE, SELFPAY ==
[2024-09-08 11:21] LABS: % Basophils 1.1 % (0-2); % Eosinophils 6.7 % (0-6); % Lymphocytes 34.6 % (20.5-51.1); % Monocytes 9.2 % (1.7-9.3); % Neutrophils 48.4 % (42.2-75.2); Absolute Basophils 0.1 10^3/uL (0-0.2); Absolute Eosinophils 0.4 10^3/uL (0-0.7); Absolute Lymphocytes 1.8 10^3/uL (1.2-3.4); Absolute Monocytes 0.5 10^3/uL (0.1-0.6); Absolute Neutrophils 2.5 10^3/uL (1.4-6.5); Hematocrit 38.9 % (39.0-52.0); Hemoglobin 12.9 g/dL (13.0-18.0); Mean Corp Hgb Conc. 33.2 g/dL (33.0-37.0); Mean Corpuscular Volume 96.5 fL (80.0-94.0); Mean Platelet Volume 10.1 fL (7.4-10.4); Nucleated Red Blood Cells % 0 % (-); Platelet Count 157 10^3/uL (130-400); Red Blood Cell Count 4.03 10^6/uL (4.70-6.10); Red Cell Dist. Width 13.2 % (11.5-14.5); White Blood Cell Count 5.2 10^3/uL (4.8-10.8)
[2024-09-08 13:10] LABS: Albumin 4.3 g/dl (3.5-5.0); Blood Urea Nitrogen 13 mg/dl (9-20); Carbon Dioxide 35 mmol/L (22-30); Chloride 103 mmol/L (98-107); Glucose 101 mg/dl (70-99); Phosphorus 3.6 mg/dl (2.5-4.5); Potassium 4.4 mmol/L (3.5-5.1); Sodium 141 mmol/L (135-145); eGFR > 60.00
== END ==
LOC: REG 10:47
PROVIDERS: ATTENDING PHYSICIAN Internal Medicine
DX: D64.9 Anemia, unspecified (principal); I48.91 Unspecified atrial fibrillation
CPT/HCPCS: 36415; 80069; 85025

== ENCOUNTER → 2024-10-27 07:52 | Outpatient (REF) | payer MEDICARE, SELFPAY | LOC: RSP 07:52 | PROVIDERS: ATTENDING PHYSICIAN Internal Medicine; FAMILY PHYSICIAN Internal Medicine | DX: J84.112 Idiopathic pulmonary fibrosis (principal) | CPT/HCPCS: 88738; 94010; 94727; 94729 ==

== ENCOUNTER → 2025-02-22 09:48 | Outpatient (REF) | payer MEDICARE, SELFPAY | LOC: RAD 09:48 | PROVIDERS: ATTENDING PHYSICIAN Surgery Vascular Surgery; FAMILY PHYSICIAN Internal Medicine | DX: I65.23 Occlusion and stenosis of bilateral carotid arteries (principal) | CPT/HCPCS: 93880 ==

== ENCOUNTER → 2025-03-18 07:20 | Outpatient (REF) | payer MEDICARE, SELFPAY ==
[2025-03-18 08:30] LABS: Hematocrit 38.5 % (39.0-52.0); Hemoglobin 12.9 g/dL (13.0-18.0); Mean Corp Hgb Conc. 33.5 g/dL (33.0-37.0); Mean Corpuscular Volume 95.8 fL (80.0-94.0); Nucleated Red Blood Cells % 0 % (-); Platelet Count 152 10^3/uL (130-400); Red Cell Dist. Width 12.6 % (11.5-14.5)
[2025-03-18 08:46] LABS: Urine Character Clear (Clear)
[2025-03-18 08:56] LABS: ALT (SGPT) 13 U/L (0-50); AST (SGOT) 27 U/L (17-59); Albumin 4.2 g/dl (3.5-5.0); Alkaline Phosphatase 61 U/L (38-126); Blood Urea Nitrogen 24 mg/dl (9-20); Calcium 10.0 mg/dl (8.4-10.2); Carbon Dioxide 33 mmol/L (22-30); Chloride 105 mmol/L (98-107); Glucose 91 mg/dl (70-99); HDL Cholesterol 45 mg/dl; LDL Cholesterol, Calculated 49 mg/dl; Potassium 4.3 mmol/L (3.5-5.1); Sodium 141 mmol/L (135-145); Total Protein 7.6 g/dl (6.3-8.2); Very Low Density Lipoprotein 16 mg/dl (0-30); eGFR > 60.00
[2025-03-18 09:26] LABS: PSA, Total - Screen < 0.06 ng/ml (0.0-4.0)
[2025-03-18 10:07] LABS: Urine Squamous Cell 0-2 /LPF (Few)
[2025-03-18 10:08] LABS: Urine White Cell None Seen /HPF (0-5)
== END ==
LOC: REG 07:20
PROVIDERS: ATTENDING PHYSICIAN Internal Medicine
DX: I10 Essential (primary) hypertension (principal); R61 Generalized hyperhidrosis; I25.10 Atherosclerotic heart disease of native coronary artery without angina pectoris; Z85.46 Personal history of malignant neoplasm of prostate; Z12.5 Encounter for screening for malignant neoplasm of prostate
CPT/HCPCS: 36415; 80053; 80061; 81003; 81015; 84443; 85025; G0103